=== PATIENT | male | born 1940 | race Caucasian/White ===

== ENCOUNTER 2016-05-12 11:56 | Observation (INO) ==
[2016-05-12] MEDS ORDERED: Pantoprazole 40 MG VIAL IVP ONE (12:18)
[2016-05-12 12:37] LABS: Basophils # 0.1 K/mcL (0.0-0.2); Basophils % 0.9 %; Eosinophils # 0.1 K/mcL (0.0-0.6); Eosinophils % 0.6 %; Hematocrit 34.7 % (37.5-50.1); Hemoglobin 11.6 g/dL (12.9-16.9); Immature Granulocytes % 0.5 % (0-4); Immature Platelets 2.9 % (1.1-6.1); Lymphocytes # 1.5 K/mcL (0.6-4.6); Lymphocytes % 14.6 %; Mean Corpuscular HGB Conc 33.4 g/dL (31.6-35.5); Mean Corpuscular Hemoglobin 30.6 pg (28.0-33.3); Mean Corpuscular Volume 91.6 fL (83.0-100.0); Mean Platelet Volume 9.2 fL (9.4-12.4); Monocytes # 0.7 K/mcL (0.0-1.3); Monocytes % 6.5 %; Neutrophils # 7.7 K/mcL (1.6-8.9); Platelet Count 292 K/mcL (140-400); Red Blood Count 3.79 M/mcL (4.19-5.50); Red Cell Distribution Width 12.8 % (11.5-14.5); Segmented Neutrophils % 76.9 %
[2016-05-12 12:42] LABS: Prothrombin Time 10.7 Seconds (9.4-12.1)
[2016-05-12 12:44] LABS: Activated Partial Thrombo Time 27.6 Seconds (26.0-36.0)
--- NOTE | 2016-05-12 12:49 | Emergency Department Note ---
Disposition Clinical Impression: GI bleed Qualifiers: GI bleed type/associated pathology: unspecified gastrointestinal hemorrhage type Qualified Code(s): K92.2 - Gastrointestinal hemorrhage, unspecified Disposition: Admitted As Inpatient Condition: Fair Referrals: Raymon Narayanan MD [Primary Care Provider] - Forms: ED Satisfaction Letter Time of Disposition: 13:27 GI Bleed HPI - General Chief complaint: ED GI Bleed Stated complaint: black stool Time Seen by Provider: 05/12/16 12:47 Source: patient Mode of arrival: ambulatory Limitations: no limitations Nursing Notes Reviewed: Yes Vital Signs Reviewed: Yes - History of Present Illness HPI Narrative: 75-year-old male who's had about a 2-3 day history of dark tarry stools. The patient has had a history of bleeding ulcer in the past. Denies significant abdominal pain. Generalized weakness Pt Subjective Complaint: other (Dark tarry stools) Onset (ago): day(s) (3) Severity: moderate Improves with: nothing Worsens with: nothing Context: history of GI bleed Associated symptoms: Reports: none Treatments Prior to Arrival: none - Related Data Allergies Allergy/AdvReac Type Severity Reaction Status Date / Time Penicillins AdvReac Rash Verified 10/18/14 08:24 All systems ED: reviewed and negative except as stated. Constitutional: Denies: fever, chills, weakness, weight change Eyes: Denies: eye pain, eye discharge, vision change ENT ED: Denies: ear pain, throat pain, dental pain, hearing loss, epistaxis, congestion, dysphagia Cardiovascular: Denies: chest pain, palpitations, dyspnea on exertion, edema, syncope Respiratory: Denies: cough, dyspnea, wheezes, hemoptysis, stridor Gastrointestinal: Reports: other (Dark tarry stools). Denies: abdominal pain, nausea, vomiting, diarrhea, constipation, hematemesis, melena, hematochezia Genitourinary: Denies: urgency, dysuria, frequency, hematuria Musculoskeletal: Denies: back pain, neck pain, arthralgia, myalgia Integumentary: Denies: rash, abrasion, lesions Neurological: Reports: weakness. Denies: headache, numbness, paresthesias, confusion, abnormal gait, vertigo Psychiatric: Denies: anxiety, depression, suicidal thoughts, homicidal thoughts , auditory hallucinations, visual hallucinations Endocrine: Denies: fatigue Hematological/Lymphatic: Denies: easy bleeding, easy bruising Allergic/Immunologic: Denies: facial swelling, urticaria Past Medical History - Past Medical History Medical history: Reports: diabetes, hypertension - Social History Smoking Status: Former smoker Smokeless Tobacco Status: No Alcohol use: Reports: none Drug use: Reports: none Physical Exam - General Limitations: no limitations General appearance: alert - Head Head exam: atraumatic, normocephalic, normal inspection - Eye Eye exam: Present: normal appearance, PERRL, EOMI - ENT ENT exam: normal exam, normal oropharynx, mucous membranes moist - Neck Neck exam: Present: normal inspection, full ROM, trachea midline - Chest Chest inspection: Present: normal inspection, symmetric chest wall rise - Respiratory Respiratory exam: Present: normal lung sounds bilaterally - Cardiovascular Cardiovascular exam: Present: regular rate, normal rhythm, normal heart sounds - Abdominal Exam Abdominal exam: Present: soft, tenderness. Absent: distention, guarding, rebound, rigidity Abdominal tenderness: Present: epigastrium, mild - Rectal Exam Rectal exam: Present: other (Was unable to get stool on rectal exam) - Extremities Exam Extremities exam: Present: normal inspection, full ROM. Absent: tenderness, pedal edema - Expanded Lower Extremity Exam Neurovascular/Tendon exam: Absent: motor deficit, sensory deficit, tendon deficit Gait: observed and normal - Back Exam Back exam: Present: normal inspection, full ROM. Absent: tenderness - Neurological Exam Neurological exam: Present: alert, oriented X3 - Psychiatric Psychiatric exam: Present: normal affect, normal mood - Skin Skin exam: Present: warm, dry, intact, normal color Course - Reevaluation(s) Reevaluation #1: 75-year-old with a history of upper GI bleed comes and stools. Workup here shows a 3.3 g hemoglobin drop since his last hemoglobin. Rectal exam was done but no good sample was obtained. Will admit. Time: 15:25 - Consultations Consultation #1: Discussed with Dr. Gil, admit. Time: 15:35 Vital Signs Temperature 97.8 F 05/12/16 11:57 Pulse Rate 93 05/12/16 11:57 Respiratory Rate 18 05/12/16 11:57 Blood Pressure 121/79 05/12/16 11:57 O2 Sat by Pulse Oximetry 95 05/12/16 11:57 Temperature 97.8 F 05/12/16 11:57 Pulse Rate 93 05/12/16 11:57 Respiratory Rate 18 05/12/16 11:57 Blood Pressure 121/79 05/12/16 11:57 O2 Sat by Pulse Oximetry 95 05/12/16 11:57 Oxygen Delivery Oxygen Delivery Room Air GI Bleed - Lab Data Lab results reviewed: Yes I reviewed the patient's lab results. Result diagrams: 05/12/16 12:28 05/12/16 12:28 Lab Results 05/12/16 05/12/16 05/12/16 Range/Units 12:28 12:28 12:28 WBC 10.0 (4.3-11.1) K/mcL RBC 3.79 L (4.19-5.50) M/mcL Hgb 11.6 L (12.9-16.9) g/dL Hct 34.7 L (37.5-50.1) % MCV 91.6 (83.0-100.0) fL MCH 30.6 (28.0-33.3) pg MCHC 33.4 (31.6-35.5) g/dL RDW 12.8 (11.5-14.5) % Plt Count 292 (140-400) K/mcL MPV 9.2 L (9.4-12.4) fL Immature Gran % 0.5 (0-4) % Seg Neutrophils % 76.9 % Lymphocytes % 14.6 % Monocytes % 6.5 % Eosinophils % 0.6 % Basophils % 0.9 % Neutrophils # 7.7 (1.6-8.9) K/mcL Lymphocytes # 1.5 (0.6-4.6) K/mcL Monocytes # 0.7 (0.0-1.3) K/mcL Eosinophils # 0.1 (0.0-0.6) K/mcL Basophils # 0.1 (0.0-0.2) K/mcL Immature Plt Fraction 2.9 (1.1-6.1) % PT 10.7 (9.4-12.1) Seconds INR 1.0 APTT 27.6 (26.0-36.0) Seconds Sodium 138 (136-145) mEq/L Potassium 3.8 (3.5-4.5) mEq/L Chloride 103 (98-109) mEq/L Carbon Dioxide 26 (19-29) mEq/L BUN 16 (8-26) mg/dL Creatinine 1.07 (0.72-1.25) mg/dL Est GFR ( Amer) > 60 (> 60) Est GFR (Non-Af Amer) > 60 (> 60) BUN/Creatinine Ratio 15 (6-26) Glucose 192 H (70-99) mg/dL Calculated Osmolality 292 (280-300) Calcium 9.4 (8.6-10.8) mg/dL Troponin I (0-0.03) ng/mL Lipase 35 (8-78) Units/L Stool Occult Blood (Negative) Blood Type Antibody Screen 05/12/16 05/12/16 05/12/16 Range/Units 12:28 12:28 12:48 WBC (4.3-11.1) K/mcL RBC (4.19-5.50) M/mcL Hgb (12.9-16.9) g/dL Hct (37.5-50.1) % MCV (83.0-100.0) fL MCH (28.0-33.3) pg MCHC (31.6-35.5) g/dL RDW (11.5-14.5) % Plt Count (140-400) K/mcL MPV (9.4-12.4) fL Immature Gran % (0-4) % Seg Neutrophils % % Lymphocytes % % Monocytes % % Eosinophils % % Basophils % % Neutrophils # (1.6-8.9) K/mcL Lymphocytes # (0.6-4.6) K/mcL Monocytes # (0.0-1.3) K/mcL Eosinophils # (0.0-0.6) K/mcL Basophils # (0.0-0.2) K/mcL Immature Plt Fraction (1.1-6.1) % PT (9.4-12.1) Seconds INR APTT (26.0-36.0) Seconds Sodium (136-145) mEq/L Potassium (3.5-4.5) mEq/L Chloride (98-109) mEq/L Carbon Dioxide (19-29) mEq/L BUN (8-26) mg/dL Creatinine (0.72-1.25) mg/dL Est GFR ( Amer) (> 60) Est GFR (Non-Af Amer) (> 60) BUN/Creatinine Ratio (6-26) Glucose (70-99) mg/dL Calculated Osmolality (280-300) Calcium (8.6-10.8) mg/dL Troponin I 0.01 (0-0.03) ng/mL Lipase (8-78) Units/L Stool Occult Blood Negative (Negative) Blood Type O POSITIVE Antibody Screen NEGATIVE - Radiology Data Radiology results reviewed: Yes I reviewed the patient's radiology results. Chest X-Ray 05/12/16 12:18 IMPRESSION: 1. No active pulmonary disease. 2. Stable cardiomegaly without overt failure. D/ / Marciano Morris MD / Marciano Morris MD Interpreting Provider: Marciano Morris MD Abdomen/Pelvis CT 05/12/16 12:47 IMPRESSION: Several foci of hazy circumscribed fat density are seen adjacent to the descending colon and proximal sigmoid colon, suggestive of epiploic appendagitis. Diverticulosis, without antonia diverticulitis. Prostatomegaly. Correlate with PSA. No evidence of obstructing renal calculus. Moderate hiatal hernia. No significant interval change in bilobed left lower lobe pulmonary nodule as compared to prior. D/ / Moe St MD / Moe St MD Interpreting Provider: Moe St MD - EKG Data EKG attestation: Yes I reviewed and interpreted this EKG. EKG shows normal: sinus rhythm Rate: normal Rhythm: NSR When compared to previous EKG there are: previous EKG unavailable Interpretation: nonspecific ST-T wave changes
[2016-05-12 12:51] LABS: BUN/Creatinine Ratio 15 (6-26); Blood Urea Nitrogen 16 mg/dL (8-26); Calcium 9.4 mg/dL (8.6-10.8); Carbon Dioxide 26 mEq/L (19-29); Chloride 103 mEq/L (98-109); Glucose 192 mg/dL (70-99); Lipase 35 Units/L (8-78); Osmolality,Calculated 292 (280-300); Potassium 3.8 mEq/L (3.5-4.5); Sodium 138 mEq/L (136-145); eGFR For African Americans > 60 (> 60); eGFR For Non-African Americans > 60 (> 60)
[2016-05-12] MEDS ORDERED: Ondansetron 4 MG/2 ML VIAL IVP PRN (16:34)
[2016-05-12] MEDS ORDERED: Naloxone 0.4 MG/ML INJ IVP PRN (16:34)
[2016-05-12] MEDS ORDERED: *HR* Morphine 2 MG/ML SYRINGE IVP PRN (16:34)
[2016-05-12] MEDS ORDERED: Albuterol 2.5 MG/3 ML NEBULIZER IH PRN (16:44)
[2016-05-12] MEDS ORDERED: *HR* Dextrose 50 % in Water (Syg) 50 ML SYRINGE IVP PRN (16:52)
[2016-05-12] MEDS ORDERED: Dextrose Gel 15 GM PO PRN ×2 (16:52)
[2016-05-12] MEDS ORDERED: D5% in Water 1,000 ML IVC PRN (16:52)
--- NOTE | 2016-05-12 16:59 | Internal Med History&Physical ---
<Jaye Duval M - Last Filed: 05/12/16 19:24> Date of Encounter: 05/12/16 Time of Encounter: 16:54 Assessment and Plan (1) GI bleed Current visit: Yes Status: Acute Patient reports nausea, poor appetite and black, sticky, tarry stools for the last 2-3 days. He has a history of bleeding ulcer 2-3 years ago. Hgb of 11.6 today is down from previous of 14.9 in 2014. Check H&H Q6hrs 40mg Protonix IVP BID NPO IV fluids 0.9NS at 100mL/hr Zofran PRN for nausea Stool sample for occult blood ordered GI/Dr. Welch consulted, will see patient tomorrow. Qualifiers: GI bleed type/associated pathology: melena Qualified Code(s): K92.1 - Melena (2) COPD (chronic obstructive pulmonary disease) Current visit: Yes Status: Acute Patient with COPD, denies any increased shortness of breath or coughing. Budesonide/formotorol BID duoneb treatments QID PRN albuterol nebulizer Qualifiers: COPD type: unspecified COPD Qualified Code(s): J44.9 - Chronic obstructive pulmonary disease, unspecified (3) Hypertension Current visit: Yes Status: Acute Patient is NPO for suspected upper GI bleed. Patient's blood pressure has been well controlled. Metoprolol and hydralazine ordered PRN for elevated blood pressure. Qualifiers: Hypertension type: essential hypertension Qualified Code(s): I10 - Essential (primary) hypertension (4) Type 2 diabetes mellitus Current visit: Yes Status: Acute Hold metformin check Hgb A1c Patient is NPO Check blood sugar Q6hr Sliding scale insulin Q6hr hypoglycemic protocol Qualifiers: Diabetes mellitus complication status: without complication Diabetes mellitus prison insulin use: without vocational examiner use Qualified Code(s): E11.9 - Type 2 diabetes mellitus without complications (5) DVT prophylaxis Current visit: Yes Status: Acute Ambulate with assistance sequential compression devices pharmacologic prophylaxis is contraindicated in suspected GI bleed. Internal Medicine - H&P: HPI Chief complaint: Nausea, tarry stools Admitted From: Emergency Dept Plans for Post Hospital Care: Home History of present illness: Mr. Lester is a 75 year old male with hypertension, hyperlipidemia, type 2 diabetes, COPD, history of bleeding ulcer, history of TIAs who presented to the emergency department today with complaints of nausea and diarrhea stools for the last 2-3 days. Patient reports he has felt nauseous and with a poor appetite for the last 2-3 days. At the same time he developed black, sticky, tarry stools with bowel movements. His last bowel movement was this morning and he describes it as tarry. He is fatigued, with some body aches, sweats, and subjective fever as well. He denies any chest pain, palpitations, abdominal pain, vomiting, numbness or tingling. He reports occasional lightheadedness. Evaluation in the emergency department included an EKG which showed normal sinus rhythm, chest x-ray which showed no active pulmonary disease and stable cardiomegaly, troponin was negative at 0.01. Hemoglobin was 11.6 down from a baseline of 14.9 and 2014. White blood cell count was normal at 10.0, patient was afebrile. Abdomen and pelvis CT showed several foci of hazy circumscribed fat density adjacent to the descending colon and proximal sigmoid colon, suggestive of epiploic appendagitis, diverticulosis without diverticulitis. On exam, patient is alert and oriented, in no acute distress. Lungs are clear bilaterally to auscultation, heart has regular rate and rhythm. Abdomen is soft, nontender, with positive bowel sounds. Past Med Surg Social Fam HX - Past Medical History Medical history: COPD, diabetes, GI bleed, hyperlipidemia, hypertension - Past Surgical History Surgical History: other (traumatic left toes (all 5) amputation) - Social History Smoking Status: Former smoker (70 Pack year history) Smokeless Tobacco Status: No Alcohol use: none Drug use: none - Family History Brother Living Status: Cause of : CVA Hx Family Cancer: Yes Hx Family Endocrine Disorder: Yes (DM) Father Living Status: Hx Family Cardiac Disorders: Yes Mother Hx Family Cardiac Disorders: No Hx Family Respiratory Disorders: No Hx Family Cancer: No Hx Family GI Disorders: No Hx Family Genitourinary Disorders: No Hx Family Endocrine Disorder: No Hx Family Musculoskeletal Disorders: No Hx Family Neuromuscular Disorders: No Hx Family Neurologic Disorders: No Hx Family HEENT Disorders: No Hx Family Autoimmune Disorders: No Hx Family Reproductive Disorders: No Hx Family Psychosocial Disorders: Yes (anxiety) Hx Family Medical Disorders: No Internal Medicine - H&P: Meds Albuterol Neb [Proventil Neb] 2.5 mg IH TID PRN 05/12/16 [History] Albuterol Sulfate [Albuterol Inhaler] 2 puff IH Q4H PRN 05/12/16 [History] Aspirin Enteric Coated [Aspirin EC] 81 mg PO DAILY 05/12/16 [History] Citalopram Hydrobromide [Celexa] 40 mg PO DAILY 05/12/16 [History] Fluticasone Furoate [Arnuity Ellipta] 100 mcg IH DAILY 05/12/16 [History] Lisinopril [Zestril] 5 mg PO DAILY 05/12/16 [History] Metformin HCl [Metformin HCl ER] 500 mg PO QPM 05/12/16 [History] Multivitamin [Multi-Day Vitamins] 1 each PO DAILY 05/12/16 [History] Simvastatin [Zocor] 20 mg PO HS 05/12/16 [History] Umeclidinium Brm/Vilanterol Tr [Anoro Ellipta 62.5-25 Mcg INH] 1 each IH DAILY 05/12/16 [History] Allergies Penicillins Adverse Reaction (Verified 10/18/14 08:24) Rash All Systems PM: A 10-system review of systems was performed and is negative for pertinent findings except as documented above in the HPI. - Constitutional Constitutional: anorexia, fatigue, fever(s), night sweats, no chills - EENT Eyes: no change in vision, no discharge, no pain, no photophobia Ears: no ear discharge, no ear pain, no tinnitus Nose, mouth and throat: no dysphagia, no nasal discharge, no neck pain, no sore throat - Cardiovascular Cardiovascular ROS IM: lightheadedness, no chest pain, no diaphoresis, no dyspnea, no palpitations, no syncope - Respiratory Respiratory: no cough, no dyspnea, no wheezing, no excessive phlegm production - Gastrointestinal Gastrointestinal: melena, nausea, no abdominal pain, no diarrhea, no hematemesis , no hematochezia, no vomiting - Musculoskeletal Musculoskeletal ROS IM: no numbness, no tingling - Integumentary Integumentary IM: no rash, no unusual bruising - Neurological Neurological ROS: no confusion, no convulsions, no focal weakness, no numbness, no tingling, no tremor(s) - Hematologic/Lymphatic Hematologic/Lymphatic: no easy bruising - Constitutional Vitals: Temp Pulse Resp BP Pulse Ox 97.8 F 79 18 114/71 98 05/12/16 11:57 05/12/16 16:18 05/12/16 16:18 05/12/16 16:18 05/12/16 16:18 General appearance: Present: A&O X 3, pleasant, no acute distress - Head Head exam: Present: atraumatic, normocephalic - Eye Eye exam: Present: PERRL, conjuntiva pink, sclera anicteric Pupils: Present: PERRL - Neck Neck exam general surgery: Present: supple, trachea midline. Absent: lymphadenopathy - Respiratory Respiratory exam: Present: CTAB. Absent: accessory muscle use, rales, rhonchi, wheezes - Cardiovascular Cardiovascular exam: Present: RRR, +S1, +S2. Absent: diastolic murmur, gallop, rubs, systolic murmur - GI/Abdominal GI/Abdominal exam: Present: normal bowel sounds, soft, no peritoneal signs. Absent: distended, tenderness - Extremities Exam Extremities exam: Present: warm, radial pulses palpable and symetrical. Absent : calf tenderness, cyanotic, pedal edema - Neurological Exam Neurological exam: Present: CN II-XII intact, oriented X3, no focal deficits. Absent: facial droop, speech deficit - Skin Skin exam: Present: dry, intact Internal Med - H&P Results - Labs CBC & Chem 7: 05/12/16 18:56 05/12/16 12:28 Labs: All Lab Results (24 Hours) 05/12/16 05/12/16 05/12/16 Range/Units 12:28 12:28 12:28 WBC 10.0 (4.3-11.1) K/mcL RBC 3.79 L (4.19-5.50) M/mcL Hgb 11.6 L (12.9-16.9) g/dL Hct 34.7 L (37.5-50.1) % MCV 91.6 (83.0-100.0) fL MCH 30.6 (28.0-33.3) pg MCHC 33.4 (31.6-35.5) g/dL RDW 12.8 (11.5-14.5) % Plt Count 292 (140-400) K/mcL MPV 9.2 L (9.4-12.4) fL Immature Gran % 0.5 (0-4) % Seg Neutrophils % 76.9 % Lymphocytes % 14.6 % Monocytes % 6.5 % Eosinophils % 0.6 % Basophils % 0.9 % Neutrophils # 7.7 (1.6-8.9) K/mcL Lymphocytes # 1.5 (0.6-4.6) K/mcL Monocytes # 0.7 (0.0-1.3) K/mcL Eosinophils # 0.1 (0.0-0.6) K/mcL Basophils # 0.1 (0.0-0.2) K/mcL Immature Plt Fraction 2.9 (1.1-6.1) % PT 10.7 (9.4-12.1) Seconds INR 1.0 APTT 27.6 (26.0-36.0) Seconds Sodium 138 (136-145) mEq/L Potassium 3.8 (3.5-4.5) mEq/L Chloride 103 (98-109) mEq/L Carbon Dioxide 26 (19-29) mEq/L BUN 16 (8-26) mg/dL Creatinine 1.07 (0.72-1.25) mg/dL Est GFR ( Amer) > 60 (> 60) Est GFR (Non-Af Amer) > 60 (> 60) BUN/Creatinine Ratio 15 (6-26) Glucose 192 H (70-99) mg/dL Calculated Osmolality 292 (280-300) Calcium 9.4 (8.6-10.8) mg/dL Troponin I (0-0.03) ng/mL Lipase 35 (8-78) Units/L Stool Occult Blood (Negative) Blood Type Antibody Screen 05/12/16 05/12/16 05/12/16 Range/Units 12:28 12:28 12:48 WBC (4.3-11.1) K/mcL RBC (4.19-5.50) M/mcL Hgb (12.9-16.9) g/dL Hct (37.5-50.1) % MCV (83.0-100.0) fL MCH (28.0-33.3) pg MCHC (31.6-35.5) g/dL RDW (11.5-14.5) % Plt Count (140-400) K/mcL MPV (9.4-12.4) fL Immature Gran % (0-4) % Seg Neutrophils % % Lymphocytes % % Monocytes % % Eosinophils % % Basophils % % Neutrophils # (1.6-8.9) K/mcL Lymphocytes # (0.6-4.6) K/mcL Monocytes # (0.0-1.3) K/mcL Eosinophils # (0.0-0.6) K/mcL Basophils # (0.0-0.2) K/mcL Immature Plt Fraction (1.1-6.1) % PT (9.4-12.1) Seconds INR APTT (26.0-36.0) Seconds Sodium (136-145) mEq/L Potassium (3.5-4.5) mEq/L Chloride (98-109) mEq/L Carbon Dioxide (19-29) mEq/L BUN (8-26) mg/dL Creatinine (0.72-1.25) mg/dL Est GFR ( Amer) (> 60) Est GFR (Non-Af Amer) (> 60) BUN/Creatinine Ratio (6-26) Glucose (70-99) mg/dL Calculated Osmolality (280-300) Calcium (8.6-10.8) mg/dL Troponin I 0.01 (0-0.03) ng/mL Lipase (8-78) Units/L Stool Occult Blood Negative (Negative) Blood Type O POSITIVE Antibody Screen NEGATIVE - Impressions ITS Impressions Chest X-Ray 05/12/16 12:18 IMPRESSION: 1. No active pulmonary disease. 2. Stable cardiomegaly without overt failure. D/ / Marciano Morris MD / Marciano Morris MD Interpreting Provider: Marciano Morris MD Abdomen/Pelvis CT 05/12/16 12:47 IMPRESSION: Several foci of hazy circumscribed fat density are seen adjacent to the descending colon and proximal sigmoid colon, suggestive of epiploic appendagitis. Diverticulosis, without antonia diverticulitis. Prostatomegaly. Correlate with PSA. No evidence of obstructing renal calculus. Moderate hiatal hernia. No significant interval change in bilobed left lower lobe pulmonary nodule as compared to prior. D/ / Moe St MD / Moe St MD Interpreting Provider: Moe St MD - Diagnostic Studies CT scan - abdomen Additional comments: Abdomen/Pelvis CT 05/12/16 12:47 IMPRESSION: Several foci of hazy circumscribed fat density are seen adjacent to the descending colon and proximal sigmoid colon, suggestive of epiploic appendagitis. Diverticulosis, without antonia diverticulitis. Prostatomegaly. Correlate with PSA. No evidence of obstructing renal calculus. Moderate hiatal hernia. No significant interval change in bilobed left lower lobe pulmonary nodule as compared to prior. D/ / Moe St MD / Moe St MD Interpreting Provider: Moe St MD Chest x-ray Additional comments: Chest X-Ray 05/12/16 12:18 IMPRESSION: 1. No active pulmonary disease. 2. Stable cardiomegaly without overt failure. D/ / Marciano Morris MD / Marciano Morris MD Interpreting Provider: Marciano Morris MD <Dallas Montanez - Last Filed: 05/12/16 23:26> Date of Encounter: 05/12/16 - Constitutional Vitals: Temp Pulse Resp BP Pulse Ox 98.2 F 77 16 129/79 95 05/12/16 18:09 05/12/16 18:09 05/12/16 18:09 05/12/16 18:09 05/12/16 18:09 General appearance: Present: cooperative, A&O X 3, pleasant, no acute distress - ENT ENT exam: Present: mucous membranes dry, normal exam - Respiratory Respiratory exam: Present: CTAB. Absent: rales, rhonchi, wheezes - Cardiovascular Cardiovascular exam: Present: RRR, +S1, +S2. Absent: systolic murmur - GI/Abdominal GI/Abdominal exam: Present: normal bowel sounds, soft. Absent: hepatomegaly, mass, splenomegaly, tenderness - Skin Skin exam: Present: dry, warm. Absent: rash Internal Med - H&P Results - Labs CBC & Chem 7: 05/12/16 18:56 05/12/16 12:28 Labs: Short CBC 05/12/16 Range/Units 18:56 Hgb 10.7 L (12.9-16.9) g/dL Hct 32.5 L (37.5-50.1) % - Attending Attestation I discussed the patient NOME, PMH, ROS, lab data, and exam findings with Jaye Duval CNP. I then saw and examined patient independently as well. Patient denies any GI symptoms presently, but he does confirm melena and GI upset the last few days. He denies any NSAID abuse or any alcohol use. Vitals are stable presently. I asked RN to place him on telemetry. His exam is benign as detailed above. He is on appropriate medications, and I agree with the GI consult and lab monitoring. Other than my comments above and noted exam findings, I agree with Jaye's assessment and plan.
[2016-05-12] MEDS ORDERED: *HR* Metoprolol 5 MG/5 ML VIAL IVP PRN (17:14)
[2016-05-12] MEDS: 0.9 % Sodium Chloride 1,000 ML IVC SCH (18:41)
[2016-05-12] MEDS: Pantoprazole 40 MG VIAL IVP SCH (18:41)
[2016-05-12 19:09] LABS: Hematocrit 32.5 % (37.5-50.1); Hemoglobin 10.7 g/dL (12.9-16.9)
[2016-05-12 19:20] LABS: Hemoglobin A1C 5.7 %
[2016-05-12] MEDS: Ipratropium/Albuterol Neb 3 ML IH SCH ×2 (19:31→22:09)
[2016-05-12] MEDS: Insulin LISPRO 300 UNITS/3 ML VIAL SQ SCH ×2 (20:14→23:44)
[2016-05-12] MEDS: Budesonide/Formoterol 160/4.5 MDI IH SCH (22:09)
[2016-05-12] MEDS: Sucralfate 1 GM TABLET PO SCH (23:34)
[2016-05-13 00:22] LABS: Hematocrit 30.4 % (37.5-50.1)
[2016-05-13] MEDS: Ipratropium/Albuterol Neb 3 ML IH SCH ×4 (04:10→22:08)
[2016-05-13 05:50] LABS: Basophils # 0.1 K/mcL (0.0-0.2); Basophils % 0.9 %; Eosinophils # 0.2 K/mcL (0.0-0.6); Hematocrit 30.3 % (37.5-50.1); Hematocrit 30.8 % (37.5-50.1); Hemoglobin 10.1 g/dL (12.9-16.9); Hemoglobin 9.9 g/dL (12.9-16.9); Immature Granulocytes % 0.3 % (0-4); Lymphocytes # 1.7 K/mcL (0.6-4.6); Lymphocytes % 22.7 %; Mean Corpuscular HGB Conc 33.3 g/dL (31.6-35.5); Mean Corpuscular Hemoglobin 30.3 pg (28.0-33.3); Mean Platelet Volume 9.7 fL (9.4-12.4); Monocytes # 0.6 K/mcL (0.0-1.3); Platelet Count 236 K/mcL (140-400); Red Blood Count 3.33 M/mcL (4.19-5.50); Red Cell Distribution Width 12.6 % (11.5-14.5); Segmented Neutrophils % 66.1 %
[2016-05-13 05:56] LABS: BUN/Creatinine Ratio 15 (6-26); Blood Urea Nitrogen 14 mg/dL (8-26); Calcium 8.9 mg/dL (8.6-10.8); Carbon Dioxide 26 mEq/L (19-29); Chloride 107 mEq/L (98-109); Glucose 126 mg/dL (70-99); Osmolality,Calculated 292 (280-300); Potassium 3.8 mEq/L (3.5-4.5); Sodium 140 mEq/L (136-145); eGFR For African Americans > 60 (> 60); eGFR For Non-African Americans > 60 (> 60)
[2016-05-13] MEDS: Insulin LISPRO 300 UNITS/3 ML VIAL SQ SCH ×4 (05:58→23:44)
[2016-05-13] MEDS: 0.9 % Sodium Chloride 1,000 ML IVC SCH ×3 (05:59→23:51)
[2016-05-13] MEDS: Pantoprazole 40 MG VIAL IVP SCH ×2 (05:59→18:13)
[2016-05-13] MEDS: Budesonide/Formoterol 160/4.5 MDI IH SCH ×2 (10:20→22:07)
--- NOTE | 2016-05-13 10:34 | Gastroenterology Consult Note ---
<Demario Juarez - Last Filed: 05/13/16 10:31> Date of Encounter: 05/13/16 Time of Encounter: 10:00 - Assessment and plan (1) Melena Current Visit: Yes Status: Acute Assessment and plan: Pt with black tarry stool for 2-3 day prior to admission. FOBT negative. EGD today to r/o esophagitis, gastritis, duodenitis, PUD, MW tear, or AVM. Keep NPO. Continue PPI. (2) Anemia Current Visit: Yes Status: Acute Assessment and plan: Hgb 14.9 on 01/14/2014. On admission Hgb 11.6 and 9.9 this AM. Check iron profile and ferritin. Continue to monitor CBC and transfuse PRBC as needed. Plan for EGD today. Keep NPO. Qualifiers: Anemia type: unspecified type Qualified Code(s): D64.9 - Anemia, unspecified (3) COPD (chronic obstructive pulmonary disease) Current Visit: Yes Status: Acute Qualifiers: COPD type: unspecified COPD Qualified Code(s): J44.9 - Chronic obstructive pulmonary disease, unspecified - Time Spent With Patient Total time spent is greater than 50% in coordination of care (as documented) at patient's floor/unit and/or counseling patient: GI History of Present Illness - Data of Consult Patient: new to practice Consult date: 05/13/16 Requesting Physician: Fransisca Krueger MD - Consult Narrative Reason for consult: melena, anemia History of present illness: Mr. Lester is a 75 year old male with PMHx of COPD, DM, GI bleed, HLD, HTN who presented to the ED with c/o nausea and melena for 2-3 days. He reports decreased appetite, fatigue, and subjective fever. He denies chest pain, palpitations, abdominal pain, vomiting, hematemesis, hematochezia. His Hgb was 14.9 on 01/14/[address] A/P with several foci of hazy circumscribed fat density seen adjacent to the descending colon and proximal sigmoid colon suggestive of epiploic appendagitis, diverticulosis. Procedures: EGD 06/28/2012 Dr. Welch: Hiatus hernia with Reece erosions. Colonoscopy 08/09/2011 Dr. Morris: 2 hyperplastic polyps in sigmoid colon, tubular adenoma in the cecum, diverticulosis, and internal hemorrhoids. EGD 08/09/2011 Dr. Morris: LA Grade C reflux esophagitis, acute gastritis and duodenitis, multiple duodenal ulcers with clean base, multiple duodenal polyps. NSAIDs: ASA Anticoagulation: None Past Med Surg Social Fam HX - Past Medical History Medical history: COPD, diabetes, GI bleed, hyperlipidemia, hypertension - Past Surgical History Surgical History: other (traumatic left toes (all 5) amputation) - Social History Smoking Status: Former smoker (70 Pack year history) Smokeless Tobacco Status: No Alcohol use: none Drug use: none - Family History Brother Living Status: Cause of : CVA Hx Family Cancer: Yes Hx Family Endocrine Disorder: Yes (DM) Father Living Status: Hx Family Cardiac Disorders: Yes Hx Family Respiratory Disorders: Yes (Asthma) Hx Family Cancer: No Hx Family GI Disorders: No Hx Family Genitourinary Disorders: No Hx Family Endocrine Disorder: No Hx Family Musculoskeletal Disorders: No Hx Family Neuromuscular Disorders: No Hx Family Neurologic Disorders: No Hx Family HEENT Disorders: No Hx Family Autoimmune Disorders: No Hx Family Reproductive Disorders: No Hx Family Psychosocial Disorders: No Hx Family Medical Disorders: No Mother Hx Family Cardiac Disorders: No Hx Family Respiratory Disorders: No Hx Family Cancer: No Hx Family GI Disorders: No Hx Family Genitourinary Disorders: No Hx Family Endocrine Disorder: No Hx Family Musculoskeletal Disorders: No Hx Family Neuromuscular Disorders: No Hx Family Neurologic Disorders: No Hx Family HEENT Disorders: No Hx Family Autoimmune Disorders: No Hx Family Reproductive Disorders: No Hx Family Psychosocial Disorders: Yes (anxiety) Hx Family Medical Disorders: No - Gastrointestinal Gastrointestinal: Present: as per HPI - Constitutional Constitutional: as per HPI - EENT Eyes: as per HPI Ears: Present: as per HPI Nose, mouth and throat: Present: as per HPI - Cardiovascular Cardiovascular ROS: Present: as per HPI - Respiratory Respiratory IM: Present: as per HPI - Genitourinary Genitourinary: Absent: change in color, Urinary frequency - Neurological ROS Neurological GI: Present: as per HPI - Hematologic/Lymphatic Hematologic/Lymphatic pediatric: Present: as per HPI - Musculoskeletal Musculoskeletal ROS GI: Present: as per HPI - Integumentary Integumentary GI: Present: as per HPI - Psychiatric ROS Psychiatric GI: Present: as per HPI - Endocrine Endocrine IM: Present: as per HPI - Constitutional Vitals: Temp Pulse Resp BP Pulse Ox 98.1 F 96 16 141/84 95 05/13/16 07:39 05/13/16 07:39 05/13/16 10:20 05/13/16 07:39 05/13/16 10:20 General appearance: Present: cooperative, A&O X 3, no acute distress, answers questions appropriately - Head Head exam: Present: atraumatic, normocephalic - Eye Eye exam: Present: normal appearance, sclera anicteric - ENT ENT exam: Present: mucous membranes dry - Neck Neck exam general surgery: Present: normal inspection, trachea midline - Respiratory Respiratory exam: Present: CTAB. Absent: rales, rhonchi, wheezes - Cardiovascular Cardiovascular exam: Present: RRR, +S1, +S2 - GI/Abdominal GI/Abdominal exam: Present: soft, no peritoneal signs. Absent: distended, firm , guarding, tenderness - Rectal Rectal exam: Present: deferred - Extremities Exam Extremities exam: Present: warm - Neurological Exam Neurological exam: Present: no focal deficits - Psychiatric Psychiatric exam: Present: normal affect, normal mood - Skin Skin exam: Present: dry, intact, normal color, warm Results - Labs CBC & Chem 7: 05/13/16 05:25 05/13/16 05:25 Labs: Last Result Calcium 8.9 mg/dL (8.6-10.8) 05/13/16 05:25 Troponin I 0.01 ng/mL (0-0.03) 05/12/16 12:28 Stool Occult Blood Negative (Negative) 05/12/16 12:48 Entire Visit Hgb 10.1 g/dL (12.9-16.9) L 05/13/16 05:25 Hct 30.3 % (37.5-50.1) L 05/13/16 05:25 PT 10.7 Seconds (9.4-12.1) 05/12/16 12:28 Lipase 35 Units/L (8-78) 05/12/16 12:28 - ABG ABG results: PT/INR, D-dimer PT 10.7 Seconds (9.4-12.1) 05/12/16 12:28 Consult Discharge Plan - Plan Referrals: Raymon Narayanan MD [Primary Care Provider] - <Cece Welch - Last Filed: 05/13/16 20:20> Date of Encounter: 05/13/16 Time of Encounter: 17:00 - Time Spent With Patient Total time spent is greater than 50% in coordination of care (as documented) at patient's floor/unit and/or counseling patient: GI History of Present Illness - Data of Consult Requesting Physician: Fransisca Krueger MD - Consult Narrative History of present illness: Mr. Lester is a 75 year old male - Constitutional Vitals: Temp Pulse Resp BP Pulse Ox 98.9 F 109 16 143/75 95 05/13/16 19:38 05/13/16 19:38 05/13/16 19:38 05/13/16 19:38 05/13/16 19:38 Results - Labs CBC & Chem 7: 05/13/16 05:25 05/13/16 05:25 Labs: Last Result Calcium 8.9 mg/dL (8.6-10.8) 05/13/16 05:25 Iron 67 mcg/dL (65-175) 05/13/16 05:25 % Saturation 17 % (20-55) L 05/13/16 05:25 Transferrin 278 mg/dL (174-364) 05/13/16 05:25 Ferritin 16 ng/ml (22-275) L 05/13/16 05:25 Troponin I 0.01 ng/mL (0-0.03) 05/12/16 12:28 Stool Occult Blood Negative (Negative) 05/12/16 12:48 Entire Visit Hgb 10.1 g/dL (12.9-16.9) L 05/13/16 05:25 Hct 30.3 % (37.5-50.1) L 05/13/16 05:25 PT 10.7 Seconds (9.4-12.1) 05/12/16 12:28 Ferritin 16 ng/ml (22-275) L 05/13/16 05:25 Lipase 35 Units/L (8-78) 05/12/16 12:28 - ABG ABG results: PT/INR, D-dimer PT 10.7 Seconds (9.4-12.1) 05/12/16 12:28 - Attending Attestation I examined this patient and my medical decision-making was reviewed with the CARPET WEAVER/PA/Advanced Practice Nurse/Resident Physician. I agree with the documented findings, disposition and treatment plan as described except to the extent set forth below.
[2016-05-13 10:59] LABS: % Iron Saturation 17 % (20-55); Iron 67 mcg/dL (65-175); Transferrin 278 mg/dL (174-364)
[2016-05-13 11:18] LABS: Ferritin 16 ng/ml (22-275)
--- NOTE | 2016-05-13 15:44 | Electrocardiograph Report ---
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
[2016-05-13] MEDS: Sucralfate 1 GM TABLET PO SCH ×2 (16:46→20:47)
[2016-05-14 03:22] LABS: Basophils # 0.1 K/mcL (0.0-0.2); Eosinophils # 0.1 K/mcL (0.0-0.6); Eosinophils % 1.9 %; Hematocrit 29.1 % (37.5-50.1); Hemoglobin 9.8 g/dL (12.9-16.9); Immature Granulocytes % 0.4 % (0-4); Lymphocytes # 1.6 K/mcL (0.6-4.6); Lymphocytes % 22.4 %; Mean Corpuscular HGB Conc 33.7 g/dL (31.6-35.5); Mean Corpuscular Hemoglobin 30.5 pg (28.0-33.3); Mean Corpuscular Volume 90.7 fL (83.0-100.0); Mean Platelet Volume 9.5 fL (9.4-12.4); Monocytes # 0.7 K/mcL (0.0-1.3); Monocytes % 9.5 %; Neutrophils # 4.7 K/mcL (1.6-8.9); Platelet Count 246 K/mcL (140-400); Red Blood Count 3.21 M/mcL (4.19-5.50); Red Cell Distribution Width 12.6 % (11.5-14.5); Segmented Neutrophils % 64.8 %
[2016-05-14] MEDS: Ipratropium/Albuterol Neb 3 ML IH SCH ×3 (04:40→15:50)
[2016-05-14] MEDS: Pantoprazole 40 MG VIAL IVP SCH (05:38)
[2016-05-14] MEDS: Insulin LISPRO 300 UNITS/3 ML VIAL SQ SCH ×2 (05:51→12:55)
[2016-05-14] MEDS ORDERED: *HR* Midazolam HCl 5 MG/5 ML VIAL IVP ONE (07:10)
[2016-05-14] MEDS ORDERED: *HR* FentaNYL (PF) 100 MCG/2 ML VIAL ONE (07:11)
[2016-05-14] MEDS ORDERED: 0.9 % Sodium Chloride 1,000 ML IVC SCH (07:30)
[2016-05-14] MEDS ORDERED: Simethicone 40 MG/0.6 ML MLS IR ONE (07:34)
[2016-05-14] MEDS ORDERED: *HR* FentaNYL (PF) 100 MCG/2 ML VIAL IVP PRN (07:34)
[2016-05-14] MEDS ORDERED: Tetracaine/Benzocaine/Butamben 200MG/SPRAY (100SPY/BOT) MM ONE (07:34)
[2016-05-14] MEDS ORDERED: *HR* Midazolam HCl 5 MG/5 ML VIAL IVP PRN (07:34)
--- NOTE | 2016-05-14 07:34 | Pre-Sedation Evaluation ---
Pre-sedation evaluation - Pre-sedation checklist Date of procedure: 05/14/16 Procedure: egd Recent Vitals: Last Vital Signs Temp 97.6 F 05/14/16 07:12 Pulse 95 05/14/16 07:32 Resp 16 05/14/16 07:32 BP 123/86 05/14/16 07:32 Pulse Ox 98 05/14/16 07:32 H&P (including ROS) documented in medical record: Yes Previous reaction to sedatives/anesthetics: No Dietary Status: NPO after Midnight ASA Classification *see protocol: CLASS III-Severe systemic disease Plan of Care: Pt appropriate candidate for procedure/moderate/conscious sedation , Risks/benefits of procedure/sedation discussed w/ patient/family
[2016-05-14] MEDS: Sucralfate 1 GM TABLET PO SCH ×2 (07:44→13:05)
[2016-05-14] MEDS: Budesonide/Formoterol 160/4.5 MDI IH SCH (10:48)
[2016-05-14 14:42] VITALS: BP 176/85
--- NOTE | 2016-05-14 17:04 | Discharge Summary ---
Date of Encounter: 05/14/16 Time of Encounter: 16:59 - Discharge Diagnosis (1) Melena Priority: Primary Status: Acute (2) Anemia Priority: Primary Status: Acute Qualifiers: Anemia type: other cause Other causes of anemia: acute posthemorrhagic Qualified Code(s): D62 - Acute posthemorrhagic anemia (3) GI bleed Priority: Primary Status: Acute Qualifiers: GI bleed type/associated pathology: melena Qualified Code(s): K92.1 - Melena (4) COPD (chronic obstructive pulmonary disease) Priority: Secondary Status: Chronic Qualifiers: COPD type: unspecified COPD Qualified Code(s): J44.9 - Chronic obstructive pulmonary disease, unspecified (5) Hypertension Priority: Secondary Status: Chronic Qualifiers: Hypertension type: essential hypertension Qualified Code(s): I10 - Essential (primary) hypertension (6) Type 2 diabetes mellitus Priority: Secondary Status: Chronic Qualifiers: Diabetes mellitus complication status: without complication Diabetes mellitus intermediate insulin use: without intermediate use Qualified Code(s): E11.9 - Type 2 diabetes mellitus without complications - Discharge Medications Prescriptions: Omeprazole [PriLOSEC] 40 mg PO DAILY #30 cap Sucralfate [Carafate] 1 gm PO QIDAC #90 tablet Home Medications: Albuterol Neb [Proventil Neb] 2.5 mg IH TID PRN 05/12/16 [History] Albuterol Sulfate [Albuterol Inhaler] 2 puff IH Q4H PRN 05/12/16 [History] Aspirin Enteric Coated [Aspirin EC] 81 mg PO DAILY 05/12/16 [History] Citalopram Hydrobromide [Celexa] 40 mg PO DAILY 05/12/16 [History] Fluticasone Furoate [Arnuity Ellipta] 100 mcg IH DAILY 05/12/16 [History] Lisinopril [Zestril] 5 mg PO DAILY 05/12/16 [History] Metformin HCl [Metformin HCl ER] 500 mg PO QPM 05/12/16 [History] Multivitamin [Multi-Day Vitamins] 1 each PO DAILY 05/12/16 [History] Simvastatin [Zocor] 20 mg PO HS 05/12/16 [History] Umeclidinium Brm/Vilanterol Tr [Anoro Ellipta 62.5-25 Mcg INH] 1 each IH DAILY 05/12/16 [History] Omeprazole [PriLOSEC] 40 mg PO DAILY #30 cap 05/14/16 [Rx] Sucralfate [Carafate] 1 gm PO QIDAC #90 tablet 05/14/16 [Rx] Allergies/Adverse Reactions: Allergies Penicillins Adverse Reaction (Verified 10/18/14 08:24) Rash Date of admission: 05/12/16 16:50 Primary care physician: Raymon Narayanan MD Consults: 05/12/16 18:01 Consult to Transactional Attorney [CONS] Routine Reason for SW Consult: patient may need PT/OT. Not janie at this time. Also does not have Advanced directives in place. Discharging clinician: Farnsisca Krueger Anticipated date of discharge: 05/14/16 - Patient Status Disposition: Home, Self-Care Condition: Good Functional capacity at discharge: independent ambulation Overall status at discharge: patient is progressing back to baseline - Discharge Instructions Instructions: Sucralfate (By mouth), Omeprazole (By mouth), Hiatal Hernia (DC) Follow Up With: Raymon Narayanan MD [Primary Care Provider] - 05/25/16 9:45 am - Diet and Activity Activity: resume usual activities as tolerated Diet: diabetic diet, low fat, low cholesterol, low salt diet Hospital course: Mr. Lester is a 75 year old male with the above medical problems, admitted with melena. His Hb was monitored frequently, he was kept NPO with iV hydration , GI has been consulted and patient underwent EGD. Hb stayed stable, did not require PRBC transfusion. EGD showed no e/o- active bleeding but did show gastritis and mucosal edema. He was restarted on PPI twice daily, which he stopped a few weeks ago per his , and he is also recommended Carafate per GI. He was explained to avoid NSAIDs and steroids and his baby ASA will be continued for now due to no active bleeding and needing this for CAD. Patient is otherwise medically stable for discharge. - Time Spent with Patient Total time spent providing and/or coordinating discharge services: Greater than 30 minutes (45 min) - Constitutional Vitals: Temp Pulse Resp BP Pulse Ox 98.0 F 121 17 176/85 95 05/14/16 14:39 05/14/16 14:39 05/14/16 15:51 05/14/16 14:39 05/14/16 15:51 General appearance: Present: cooperative, A&O X 3, answers questions appropriately - Respiratory Respiratory exam: Present: CTAB. Absent: accessory muscle use, rales, rhonchi, wheezes - Cardiovascular Cardiovascular exam: Present: RRR, +S1, +S2. Absent: diastolic murmur, gallop, rubs, systolic murmur - VTE Documentation of Mechanical Device: Graduated compression elastic hosiery
--- NOTE | 2016-05-16 17:42 | Internal Med Progress Note ---
Date of Encounter: 05/13/16 Time of Encounter: 15:00 - Assessment and plan (1) Melena Status: Acute Assessment and plan: Patient presents with melena, GI has been consulted and scheduled for EGD today. Will follow up report. Will continue to monitor hemoglobin and transfuse as needed. (2) Anemia Status: Acute Assessment and plan: Plan as above. Qualifiers: Anemia type: other cause Other causes of anemia: acute posthemorrhagic Qualified Code(s): D62 - Acute posthemorrhagic anemia (3) GI bleed Status: Acute Qualifiers: GI bleed type/associated pathology: melena Qualified Code(s): K92.1 - Melena (4) COPD (chronic obstructive pulmonary disease) Status: Chronic Assessment and plan: Not noted to be in acute exacerbation. Continue when necessary bronchodilators and supplemental oxygen. Qualifiers: COPD type: unspecified COPD Qualified Code(s): J44.9 - Chronic obstructive pulmonary disease, unspecified (5) Hypertension Status: Chronic Assessment and plan: Blood pressure noted to be well controlled. Continue home medications. Qualifiers: Hypertension type: essential hypertension Qualified Code(s): I10 - Essential (primary) hypertension (6) Type 2 diabetes mellitus Status: Chronic Assessment and plan: Continue Accu-Chek glucose monitoring with sliding scale insulin. Blood sugars are noted to be well controlled. Qualifiers: Diabetes mellitus complication status: without complication Diabetes mellitus supervisor intermediates insulin use: without supervisor intermediates use Qualified Code(s): E11.9 - Type 2 diabetes mellitus without complications - Subjective Interval history: No abdominal pain, vomiting or diarrhea. Awaiting EGD today. - Constitutional Vitals: Temp Pulse Resp BP Pulse Ox 98.0 F 121 17 176/85 95 05/14/16 14:39 05/14/16 14:39 05/14/16 15:51 05/14/16 14:39 05/14/16 15:51 General appearance: Present: cooperative, A&O X 3, answers questions appropriately - Respiratory Respiratory exam: Present: CTAB. Absent: accessory muscle use, rales, rhonchi, wheezes - Cardiovascular Cardiovascular exam: Present: RRR, +S1, +S2. Absent: diastolic murmur, gallop, rubs, systolic murmur - GI/Abdominal GI/Abdominal exam: Present: normal bowel sounds, soft, no peritoneal signs. Absent: distended, tenderness Internal Medicine: Result - Labs CBC & Chem 7: 05/14/16 03:00 05/13/16 05:25 - ABG Interpretation ABG results: PT/INR, D-dimer PT 10.7 Seconds (9.4-12.1) 05/12/16 12:28 - VTE Documentation of Mechanical Device: Graduated compression elastic hosiery Consult Discharge Plan - Plan Instructions: Sucralfate (By mouth), Omeprazole (By mouth), Hiatal Hernia (DC) Referrals: Raymon Narayanan MD [Primary Care Provider] - 05/25/16 9:45 am Prescriptions: Omeprazole [PriLOSEC] 40 mg PO DAILY #30 cap Sucralfate [Carafate] 1 gm PO QIDAC #90 tablet
== END 2016-05-14 17:58 | disposition home or self-care (01) ==
LOC: 3BNU 11:56 → EMEROO 11:56 → SUATTDRO 16:50 → 3BNU 17:31
PROVIDERS: ADMIT Internal Medicine; ATTEND Internal Medicine
PROC: ENDOEBX (2016-05-14 07:30)

== ENCOUNTER 2016-09-17 11:26 | Inpatient (IN) ==
--- NOTE | 2016-09-17 11:49 | Emergency Department Note ---
Disposition Clinical Impression: Syncope Qualifiers: Syncope type: unspecified Qualified Code(s): R55 - Syncope and collapse Anemia Qualifiers: Anemia type: unspecified type Qualified Code(s): D64.9 - Anemia, unspecified Disposition: Admitted As Inpatient Condition: Fair Time of Disposition: 13:37 Syncope HPI - General Chief Complaint: ED Syncope Stated Complaint: Syncope Time Seen by Provider: 09/17/16 11:35 Source: patient, family Mode of arrival: wheelchair Limitations: no limitations Nursing Notes Reviewed: Yes Vital Signs Reviewed: Yes - History of Present Illness HPI Narrative: 76-year-old who was at a [employer] with his daughter became acutely shaky and weak with generalized weakness set out of the chair and actually apparently suffered a syncopal episode. Patient has had a bleeding ulcer in the past hasn' t gotten blood. He denies any blood in his stool he has not vomited any blood is not nauseated now and he denies any pain. 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 Duration: second(s) Prodromal Symptoms: lightheaded Context: other Injuries Sustained Associated with Event: none Current Symptoms: weakness (Generalized weakness) History: other (GI bleed in the past) Treatments prior to arrival: none Associated trauma secondary to event: No - Related Data Home Medications Medication Instructions Recorded Confirmed Albuterol Neb [Proventil Neb] 2.5 mg IH TID PRN 05/12/16 09/17/16 Albuterol Sulfate [Albuterol 2 puff IH Q4H PRN 05/12/16 09/17/16 Inhaler] Aspirin Enteric Coated [Aspirin EC] 81 mg PO DAILY 05/12/16 09/17/16 Citalopram Hydrobromide [Celexa] 40 mg PO DAILY 05/12/16 09/17/16 Fluticasone Furoate [Arnuity 100 mcg IH DAILY 05/12/16 09/17/16 Ellipta] Lisinopril [Zestril] 5 mg PO DAILY 05/12/16 09/17/16 Metformin HCl [Metformin HCl ER] 500 mg PO QPM 05/12/16 09/17/16 Multivitamin [Multi-Day Vitamins] 1 each PO DAILY 05/12/16 09/17/16 Simvastatin [Zocor] 20 mg PO HS 05/12/16 09/17/16 Umeclidinium Brm/Vilanterol Tr 1 each IH DAILY 05/12/16 09/17/16 [Anoro Ellipta 62.5-25 Mcg INH] Previous Rx's Medication Instructions Recorded Omeprazole [PriLOSEC] 40 mg PO DAILY #30 cap 05/14/16 Allergies Allergy/AdvReac Type Severity Reaction Status Date / Time Penicillins AdvReac Rash Verified 09/17/16 13:51 Constitutional: Denies: fever, chills, weakness, weight change Eyes: Denies: eye pain, eye discharge, vision change ENT ED: Denies: ear pain, throat pain, dental pain, hearing loss, epistaxis, congestion, dysphagia Cardiovascular: Reports: syncope. Denies: chest pain, palpitations, dyspnea on exertion, edema Respiratory: Denies: cough, dyspnea, wheezes, hemoptysis, stridor Gastrointestinal: Denies: abdominal pain, nausea, vomiting, diarrhea, constipation, hematemesis, melena, hematochezia Genitourinary: Denies: urgency, dysuria, frequency, hematuria Musculoskeletal: Denies: back pain, neck pain, arthralgia, myalgia Integumentary: Denies: rash, abrasion, lesions Neurological: Reports: weakness (Generalized). Denies: headache, numbness, paresthesias, confusion, abnormal gait, vertigo Psychiatric: Denies: anxiety, depression, suicidal thoughts, homicidal thoughts , auditory hallucinations, visual hallucinations Endocrine: Denies: fatigue Hematological/Lymphatic: Denies: easy bleeding, easy bruising Allergic/Immunologic: Denies: facial swelling, urticaria Past Medical History - Past Medical History Medical history: Reports: COPD, diabetes, GI bleed, hyperlipidemia, hypertension , TIA, other Surgical history: Reports: other (traumatic left toes (all 5) amputation) Psychiatric history: Reports: no psych history - Social History Smoking Status: Former smoker Smokeless Tobacco Status: No Alcohol use: Reports: none Drug use: Reports: none Physical Exam - General Limitations: no limitations General appearance: alert, in no apparent distress - Head Head exam: atraumatic, normocephalic, normal inspection - Eye Eye exam: Present: normal appearance, PERRL, EOMI - ENT ENT exam: normal exam, normal oropharynx, mucous membranes moist - Neck Neck exam: Present: normal inspection, full ROM, trachea midline - Chest Chest inspection: Present: normal inspection, symmetric chest wall rise - Respiratory Respiratory exam: Present: normal lung sounds bilaterally - Cardiovascular Cardiovascular exam: Present: regular rate, normal rhythm, normal heart sounds - Abdominal Exam Abdominal exam: Present: soft, Non-Tender. Absent: tenderness, distention, guarding, rebound, rigidity - Rectal Exam Heel Top Lift Splitter present during exam: Yes Rectal exam: Present: normal inspection, normal rectal tone, other (Stool is brown). Absent: tenderness - Extremities Exam Extremities exam: Present: normal inspection, full ROM. Absent: tenderness, pedal edema - Expanded Lower Extremity Exam Neurovascular/Tendon exam: Absent: motor deficit, sensory deficit, tendon deficit Gait: not tested/not observed - Back Exam Back exam: Present: normal inspection, full ROM. Absent: tenderness - Neurological Exam Neurological exam: Present: alert, oriented X3 - Psychiatric Psychiatric exam: Present: normal affect, normal mood - Skin Skin exam: Present: warm Course - Reevaluation(s) Reevaluation #1: 76-year-old at the [employer] today and became generally weak and suffered a syncopal episode. Patient does have a history of previous bleeding ulcers in the past although he's had no blood in the stool and no vomiting of blood. Hemoglobin was found to be low and he does have fairly severe pulmonary disease. Consultation obtained with hospitalist regarding had admittance likely with fluids his hemoglobin dropped further due to the delusional effect sort of go ahead and transfuse in light of his chronic disease. Time: 13:34 - Consultations Consultation #1: Discussed with Dr. Gallardo, admit. Time: 13:35 Vital Signs Temperature 97.8 F 09/17/16 11:29 Pulse Rate 73 09/17/16 11:29 Respiratory Rate 20 09/17/16 11:29 Blood Pressure 94/59 09/17/16 11:29 O2 Sat by Pulse Oximetry 96 09/17/16 11:29 Temperature 98.6 F 09/17/16 19:46 Pulse Rate 72 09/17/16 19:46 Respiratory Rate 18 09/17/16 19:46 Blood Pressure 126/70 09/17/16 19:46 O2 Sat by Pulse Oximetry 98 09/17/16 19:46 Oxygen Delivery Oxygen Delivery Room Air Syncope - Lab Data Lab results reviewed: Yes I reviewed the patient's lab results. Result diagrams: 09/17/16 11:49 09/17/16 11:49 Lab Results 09/17/16 09/17/16 09/17/16 Range/Units 11:40 11:49 11:49 WBC 8.5 (4.3-11.1) K/mcL RBC 3.53 L (4.19-5.50) M/mcL Hgb 8.0 L (12.9-16.9) g/dL Hct 27.6 L (37.5-50.1) % MCV 78.2 L (83.0-100.0) fL MCH 22.7 L (28.0-33.3) pg MCHC 29.0 L (31.6-35.5) g/dL RDW 16.2 H (11.5-14.5) % Plt Count 336 (140-400) K/mcL MPV 9.0 L (9.4-12.4) fL Immature Gran % 0.2 (0-4) % Seg Neutrophils % 78.6 % Lymphocytes % 13.0 % Monocytes % 6.5 % Eosinophils % 0.8 % Basophils % 0.9 % Neutrophils # 6.7 (1.6-8.9) K/mcL Lymphocytes # 1.1 (0.6-4.6) K/mcL Monocytes # 0.6 (0.0-1.3) K/mcL Eosinophils # 0.1 (0.0-0.6) K/mcL Basophils # 0.1 (0.0-0.2) K/mcL PT 11.6 (9.4-12.1) Seconds INR 1.1 APTT 24.0 L (26.0-36.0) Seconds Sodium (136-145) mEq/L Potassium (3.5-4.5) mEq/L Chloride (98-109) mEq/L Carbon Dioxide (19-29) mEq/L BUN (8-26) mg/dL Creatinine (0.72-1.25) mg/dL Est GFR ( Amer) (> 60) Est GFR (Non-Af Amer) (> 60) BUN/Creatinine Ratio (6-26) Glucose (70-99) mg/dL Calculated Osmolality (280-300) Lactic Acid (0.5-2.2) mmol/L Calcium (8.6-10.8) mg/dL Troponin I (0-0.03) ng/mL Stool Occult Blood Negative (Negative) Blood Type Antibody Screen Crossmatch 09/17/16 09/17/16 09/17/16 Range/Units 11:49 11:49 11:49 WBC (4.3-11.1) K/mcL RBC (4.19-5.50) M/mcL Hgb (12.9-16.9) g/dL Hct (37.5-50.1) % MCV (83.0-100.0) fL MCH (28.0-33.3) pg MCHC (31.6-35.5) g/dL RDW (11.5-14.5) % Plt Count (140-400) K/mcL MPV (9.4-12.4) fL Immature Gran % (0-4) % Seg Neutrophils % % Lymphocytes % % Monocytes % % Eosinophils % % Basophils % % Neutrophils # (1.6-8.9) K/mcL Lymphocytes # (0.6-4.6) K/mcL Monocytes # (0.0-1.3) K/mcL Eosinophils # (0.0-0.6) K/mcL Basophils # (0.0-0.2) K/mcL PT (9.4-12.1) Seconds INR APTT (26.0-36.0) Seconds Sodium 138 (136-145) mEq/L Potassium 4.0 (3.5-4.5) mEq/L Chloride 106 (98-109) mEq/L Carbon Dioxide 22 (19-29) mEq/L BUN 12 (8-26) mg/dL Creatinine 1.23 (0.72-1.25) mg/dL Est GFR ( Amer) > 60 (> 60) Est GFR (Non-Af Amer) 58 L (> 60) BUN/Creatinine Ratio 10 (6-26) Glucose 164 H (70-99) mg/dL Calculated Osmolality 289 (280-300) Lactic Acid 2.4 H (0.5-2.2) mmol/L Calcium 9.1 (8.6-10.8) mg/dL Troponin I 0.01 (0-0.03) ng/mL Stool Occult Blood (Negative) Blood Type Antibody Screen Crossmatch 09/17/16 Range/Units 12:41 WBC (4.3-11.1) K/mcL RBC (4.19-5.50) M/mcL Hgb (12.9-16.9) g/dL Hct (37.5-50.1) % MCV (83.0-100.0) fL MCH (28.0-33.3) pg MCHC (31.6-35.5) g/dL RDW (11.5-14.5) % Plt Count (140-400) K/mcL MPV (9.4-12.4) fL Immature Gran % (0-4) % Seg Neutrophils % % Lymphocytes % % Monocytes % % Eosinophils % % Basophils % % Neutrophils # (1.6-8.9) K/mcL Lymphocytes # (0.6-4.6) K/mcL Monocytes # (0.0-1.3) K/mcL Eosinophils # (0.0-0.6) K/mcL Basophils # (0.0-0.2) K/mcL PT (9.4-12.1) Seconds INR APTT (26.0-36.0) Seconds Sodium (136-145) mEq/L Potassium (3.5-4.5) mEq/L Chloride (98-109) mEq/L Carbon Dioxide (19-29) mEq/L BUN (8-26) mg/dL Creatinine (0.72-1.25) mg/dL Est GFR ( Amer) (> 60) Est GFR (Non-Af Amer) (> 60) BUN/Creatinine Ratio (6-26) Glucose (70-99) mg/dL Calculated Osmolality (280-300) Lactic Acid (0.5-2.2) mmol/L Calcium (8.6-10.8) mg/dL Troponin I (0-0.03) ng/mL Stool Occult Blood (Negative) Blood Type O POSITIVE Antibody Screen NEGATIVE Crossmatch See Detail - EKG Data EKG attestation: Yes I reviewed and interpreted this EKG. EKG shows normal: sinus rhythm Rate: normal Rhythm: NSR Interpretation: no acute changes Critical Care Time Critical Care Time: Yes Total Critical Care Time: 30 Attestation: The high probability of a clinically significant, sudden or life threatening deterioration of the [hematologic] system(s) required my full and direct attention, intervention and personal management. The aggregate critical care time was [30] minutes. This time is in addition to time spent performing reported procedures but includes the following: [x] Data Review and interpretation [x] Patient assessment and monitoring of vital signs [x] Documentation [x Medication orders and management
[2016-09-17 11:56] LABS: Basophils # 0.1 K/mcL (0.0-0.2); Basophils % 0.9 %; Eosinophils # 0.1 K/mcL (0.0-0.6); Eosinophils % 0.8 %; Hematocrit 27.6 % (37.5-50.1); Immature Granulocytes % 0.2 % (0-4); Lymphocytes # 1.1 K/mcL (0.6-4.6); Mean Corpuscular Hemoglobin 22.7 pg (28.0-33.3); Mean Corpuscular Volume 78.2 fL (83.0-100.0); Monocytes # 0.6 K/mcL (0.0-1.3); Monocytes % 6.5 %; Neutrophils # 6.7 K/mcL (1.6-8.9); Platelet Count 336 K/mcL (140-400); Red Blood Count 3.53 M/mcL (4.19-5.50); Red Cell Distribution Width 16.2 % (11.5-14.5); Segmented Neutrophils % 78.6 %
[2016-09-17 12:04] LABS: INR 1.1; Prothrombin Time 11.6 Seconds (9.4-12.1)
[2016-09-17 12:09] LABS: BUN/Creatinine Ratio 10 (6-26); Blood Urea Nitrogen 12 mg/dL (8-26); Calcium 9.1 mg/dL (8.6-10.8); Carbon Dioxide 22 mEq/L (19-29); Chloride 106 mEq/L (98-109); Glucose 164 mg/dL (70-99); Osmolality,Calculated 289 (280-300); Sodium 138 mEq/L (136-145); eGFR For African Americans > 60 (> 60); eGFR For Non-African Americans 58 (> 60)
[2016-09-17] MEDS ORDERED: Pantoprazole 40 MG VIAL IVP ONE (13:33)
[2016-09-17] MEDS ORDERED: *HR* HYDROcodone/Acet 5/325 mg TABLET PO PRN (13:47)
[2016-09-17] MEDS ORDERED: Naloxone 0.4 MG/ML INJ IVP PRN (13:47)
[2016-09-17] MEDS ORDERED: Ondansetron 4 MG/2 ML VIAL IVP PRN (13:47)
[2016-09-17] MEDS ORDERED: Acetaminophen 325 MG TABLET PO PRN (13:47)
[2016-09-17] MEDS ORDERED: *HR* Morphine 2 MG/ML SYRINGE IVP PRN (13:47)
[2016-09-17] MEDS ORDERED: D5% in Water 1,000 ML IVC PRN (13:56)
[2016-09-17] MEDS ORDERED: *HR* Dextrose 50 % in Water (Syg) 50 ML SYRINGE IVP PRN (13:56)
[2016-09-17] MEDS ORDERED: Dextrose Gel 15 GM PO PRN ×2 (13:56)
[2016-09-17] MEDS ORDERED: Pantoprazole 40 MG VIAL IVP SCH (14:00)
--- NOTE | 2016-09-17 14:12 | Internal Med History&Physical ---
<Toby Membreno - Last Filed: 09/17/16 15:04> Date of Encounter: 09/17/16 Time of Encounter: 13:00 Assessment and Plan (1) Dizziness Current visit: Yes Status: Acute Patient presents with acute on chronic dizziness. Patient reports he is always dizzy, sometimes with positional changing. Echocardiogram ordered as well as bilateral carotid Doppler duplex imaging. Patient placed on continuous cardiac telemetry and supplemental O2. Patient placed as falls precautions/up with assist/bed rest with bathroom privileges with assist only due to dizziness and hx of syncope/pre-syncope. (2) Generalized weakness Current visit: Yes Status: Acute Patient presents with acute generalized weakness. Patient reports he was at a [employer] and became weak and shaky. Echocardiogram ordered as well as bilateral carotid Doppler duplex imaging. Patient placed on continuous cardiac telemetry and supplemental O2. A1c ordered and blood glucose ACHS to assess for hypoglycemia/hyperglycemia. Patient placed as falls precautions/up with assist/ bed rest with bathroom privileges with assist only due to dizziness and hx of syncope/pre-syncope. (3) HLD (hyperlipidemia) Current visit: Yes Status: Chronic Patient presents with history of chronic hyperlipidemia. Lipid panel ordered. Will continue patient's Zocor. Qualifiers: Hyperlipidemia type: pure hypercholesterolemia Qualified Code(s): E78.00 - Pure hypercholesterolemia, unspecified; E78.0 - Pure hypercholesterolemia (4) HTN (hypertension) Current visit: Yes Status: Chronic Patient presents with history of chronic hypertension. Will monitor patient's vital signs and continue patient's lisinopril. Qualifiers: Hypertension type: essential hypertension Qualified Code(s): I10 - Essential (primary) hypertension (5) Anemia Current visit: Yes Status: Chronic Patient presents with chronic anemia due to history of GI ulcers and GI bleed of unknown source. Patient denies any unusual bleeding and fecal occult stool is negative today. Patient's previous Hgb was 11.6 and Hct was 34.7 in May. Hgb is 8.0 and Hct is 27.6 today on admission. Type and screen ordered for possible transfusion needs. Patient's last GI consult was in May during his last admission for black, tarry stools. IVP Protonix 40 mg daily ordered. Qualifiers: Anemia type: unspecified type Qualified Code(s): D64.9 - Anemia, unspecified (6) COPD (chronic obstructive pulmonary disease) Current visit: Yes Status: Chronic Patient presents with history of chronic COPD. Reports use of home O2 @ 2.5L HS. Supplemental O2 and SpO2 monitoring ordered with titration if SpO2 < 92%. DuoNebs ordered Q6 scheduled. Qualifiers: COPD type: unspecified COPD Qualified Code(s): J44.9 - Chronic obstructive pulmonary disease, unspecified (7) DVT prophylaxis Current visit: Yes Status: Acute Patient to be placed on DVT prophylaxis due to current admission protocol and bed rest status. Due to patient's drop in Hgb and Hct and GI bleed of unknown origin, pharmacologic DVT prophylaxis is contraindicated. Bilateral SCDs ordered for patient's LEs. Internal Medicine - H&P: HPI Chief complaint: Pre-syncope/dizziness Admitted From: Emergency Dept Plans for Post Hospital Care: Home History of present illness: Mr. Lester is a 76 year old male who presents from the ED with chief complaint of near syncope today when he was at a [employer]. The patient states that he became weak and shaky and was able to sit down without blacking out. He does report that he had a syncopal episode in the spring when he did black out completely. Patient states that he becomes dizzy on occasion and he also has a history of chronic anemia due to a GI bleed that cannot be identified. Patient presents with Hgb of 8.0 and HCT of 27.6 on admission to ED today. Hgb was 11.6 and Hct was 34.7 in May. Ed ordered type an screen for possible transfusion. Patient denies any unusual bleeding or blood in urine/stool. Patient does report urinary hesitancy. Patient's medical history includes COPD, diabetes controlled by metformin, GI bleed, hyperlipidemia, hypertension, TIAs (with the last TIA episode in spring). Patient was a former smoker and reportedly quit in 1994 and smoked one 1.5 packs per day. Patient currently denies any abdominal pain, chest pain, nausea, vomiting, diarrhea, constipation, palpitations, headache, numbness, tingling, abnormal gait, or vertigo. Mr. Lester is a moderate risk for morbidity based on current symptoms and anemia and will be placed as observation status with orders for continuous cardiac telemetry, supplemental O2 with SPO2 monitoring, bilateral carotid Doppler duplex imaging, and follow safety precautions. Patient to be monitored closely. Time spent with patient greater than 40 minutes. Past Med Surg Social Fam HX - Past Medical History Source: patient Medical history: COPD, diabetes, GI bleed, hyperlipidemia, hypertension, TIA, other Psychiatric history: no psych history - Past Surgical History Surgical History: other (Traumatic left toes (all 5) amputation due to accident , removal of benign tumor on neck) - Social History Smoking Status: Former smoker Packs per day: 1.5 - reports quitting in 1994 Smokeless Tobacco Status: No Alcohol use: none Drug use: none Occupational status: previously employed Current living situation: Home, With Family Activity Level: Independent ambulation, Uses cane/walker Recent Out of Country Travel Within the Last 8 Weeks: No Exposure or Possible Exposure to Illness During Travel: No - Family History Brother Race: Family Member Ethnicity: Non- Living Status: Hx Family Cancer: Yes Hx Family Endocrine Disorder: Yes (DM) Father Race: Family Member Ethnicity: Non- Living Status: Hx Family Cardiac Disorders: Yes Hx Family Respiratory Disorders: Yes (Asthma) Hx Family Cancer: No Hx Family GI Disorders: No Hx Family Endocrine Disorder: No Hx Family Neuromuscular Disorders: No Hx Family Neurologic Disorders: No Hx Family HEENT Disorders: No Hx Family Autoimmune Disorders: No Mother Race: Family Member Ethnicity: Non- Living Status: Hx Family Cardiac Disorders: No Hx Family Respiratory Disorders: No Hx Family Cancer: No Hx Family GI Disorders: No Hx Family Endocrine Disorder: No Hx Family Neuromuscular Disorders: No Hx Family Neurologic Disorders: No Hx Family HEENT Disorders: No Hx Family Autoimmune Disorders: No Internal Medicine - H&P: Meds Albuterol Neb [Proventil Neb] 2.5 mg IH TID PRN 05/12/16 [History] Albuterol Sulfate [Albuterol Inhaler] 2 puff IH Q4H PRN 05/12/16 [History] Aspirin Enteric Coated [Aspirin EC] 81 mg PO DAILY 05/12/16 [History] Citalopram Hydrobromide [Celexa] 40 mg PO DAILY 05/12/16 [History] Fluticasone Furoate [Arnuity Ellipta] 100 mcg IH DAILY 05/12/16 [History] Lisinopril [Zestril] 5 mg PO DAILY 05/12/16 [History] Metformin HCl [Metformin HCl ER] 500 mg PO QPM 05/12/16 [History] Multivitamin [Multi-Day Vitamins] 1 each PO DAILY 05/12/16 [History] Simvastatin [Zocor] 20 mg PO HS 05/12/16 [History] Umeclidinium Brm/Vilanterol Tr [Anoro Ellipta 62.5-25 Mcg INH] 1 each IH DAILY 05/12/16 [History] Omeprazole [PriLOSEC] 40 mg PO DAILY #30 cap 05/14/16 [Rx] Allergies Penicillins Adverse Reaction (Verified 09/17/16 13:51) Rash All Systems PM: A 10-system review of systems was performed and is negative for pertinent findings except as documented above in the HPI. - Constitutional Constitutional: as per HPI, falls, weakness, no chills, no fever(s), no night sweats - EENT Eyes: no change in vision, no discharge, no pain, no photophobia Ears: no ear discharge, no ear pain, no tinnitus Nose, mouth and throat: no dysphagia, no nasal discharge, no neck pain, no sore throat - Breasts Breasts: as per HPI - Cardiovascular Cardiovascular ROS IM: as per HPI, dyspnea, dyspnea on exertion, syncope, other (Pre-syncope), no chest pain, no diaphoresis, no lightheadedness, no palpitations - Respiratory Respiratory: as per HPI, dyspnea, dyspnea on exertion, wheezing, no cough, no excessive phlegm production - Gastrointestinal Gastrointestinal: no abdominal pain, no diarrhea, no hematemesis, no hematochezia, no melena, no nausea, no vomiting - Genitourinary Genitourinary ROS male: as per HPI, difficulty urinating, urinary hesitancy - Musculoskeletal Musculoskeletal ROS IM: no numbness, no tingling - Integumentary Integumentary IM: no rash, no unusual bruising - Neurological Neurological ROS: as per HPI, dizziness, frequent falls, weakness, no confusion , no convulsions, no focal weakness, no numbness, no tingling, no tremor(s) - Psychiatric Psychiatric: as per HPI - Endocrine Endocrine IM: as per HPI - Hematologic/Lymphatic Hematologic/Lymphatic: as per HPI, easy bleeding (GI bleed of unknown source) - Allergic/Immunologic Allergic/Immunologic: as per HPI - Constitutional Vitals: Temp Pulse Resp BP Pulse Ox 97.8 F 65 16 108/70 100 09/17/16 11:29 09/17/16 12:54 09/17/16 12:54 09/17/16 12:54 09/17/16 12:54 General appearance: Present: cooperative, mild distress, A&O X 3, pleasant, obese, answers questions appropriately - Head Head exam: Present: atraumatic, normocephalic - Eye Eye exam: Present: PERRL, conjuntiva pink, sclera anicteric Pupils: Present: PERRL - ENT ENT exam: Present: normal exam, normal external ear exam - Neck Neck exam general surgery: Present: normal inspection, supple, trachea midline. Absent: lymphadenopathy - Respiratory Respiratory exam: Present: decreased breath sounds, CTAB, wheezes. Absent: accessory muscle use, rales, rhonchi - Cardiovascular Cardiovascular exam: Present: RRR, +S1, +S2. Absent: diastolic murmur, gallop, rubs, systolic murmur - GI/Abdominal GI/Abdominal exam: Present: normal bowel sounds, soft, no peritoneal signs. Absent: distended, tenderness - Rectal Rectal exam: Present: deferred - Additional comments: exam deferred. - Extremities Exam Extremities exam: Present: warm, radial pulses palpable and symmetrical. Absent : calf tenderness, cyanotic, pedal edema - Back Exam Back exam: Present: normal inspection - Neurological Exam Neurological exam: Present: CN II-XII intact, oriented X3, no focal deficits. Absent: pronater drift, facial droop, speech deficit - Psychiatric Psychiatric exam: Present: normal affect, normal mood - Skin Skin exam: Present: dry, intact Internal Med - H&P Results - Labs CBC & Chem 7: 09/17/16 11:49 09/17/16 11:49 Labs: Short CBC 09/17/16 Range/Units 11:49 WBC 8.5 (4.3-11.1) K/mcL Hgb 8.0 L (12.9-16.9) g/dL Hct 27.6 L (37.5-50.1) % Plt Count 336 (140-400) K/mcL Neutrophils # 6.7 (1.6-8.9) K/mcL BMP 09/17/16 11:49 Sodium 138 Potassium 4.0 Chloride 106 Carbon Dioxide 22 BUN 12 Creatinine 1.23 Glucose 164 H Calcium 9.1 Cardiac Enzymes 09/17/16 Range/Units 11:49 Troponin I 0.01 (0-0.03) ng/mL - EKG Data EKG shows normal: sinus rhythm Rate: normal - EKG Data Interpretation IM: normal EKG - Impressions ITS Impressions Chest X-Ray 09/17/16 11:35 IMPRESSION: No acute process. D/ / Kelsi Armstrong MD / Kelsi Armstrong MD Interpreting Provider: Kelsi Armstrong MD Head CT 09/17/16 11:40 IMPRESSION: 1. No acute intracranial abnormality. 2. Mild age-appropriate diffuse atrophy with moderate to severe chronic small vessel ischemic changes. D/ / Demario Callejas MD / Demario Callejas MD Interpreting Provider: Demario Callejas MD - Diagnostic Studies Chest x-ray Additional comments: Impressions Chest X-Ray 09/17/16 11:35 IMPRESSION: No acute process. D/ / Kelsi Armstrong MD / Kelsi Armstrong MD Interpreting Provider: Kelsi Armstrong MD CT scan - head Additional comments: Impressions Head CT 09/17/16 11:40 IMPRESSION: 1. No acute intracranial abnormality. 2. Mild age-appropriate diffuse atrophy with moderate to severe chronic small vessel ischemic changes. D/ / Demario Callejas MD / Demario Callejas MD Interpreting Provider: Demario Callejas MD <Pedro Gallardo - Last Filed: 09/17/16 17:42> Date of Encounter: 09/17/16 Internal Medicine - H&P: HPI History of present illness: Mr. Lester is a 76 year old male All Systems PM: A 10-system review of systems was performed and is negative for pertinent findings except as documented above in the HPI. - Constitutional Vitals: Temp Pulse Resp BP Pulse Ox 98.4 F 78 16 135/75 99 09/17/16 16:54 09/17/16 16:54 09/17/16 16:54 09/17/16 16:54 09/17/16 16:54 Internal Med - H&P Results - Labs CBC & Chem 7: 09/17/16 11:49 09/17/16 11:49 - Attending Attestation I examined this patient and my medical decision-making was reviewed with the WIND UP OPERATOR. I agree with the documented findings, disposition and treatment plan as described
[2016-09-17] MEDS ORDERED: 0.9 % Sodium Chloride 250 ML ONE (14:22)
--- NOTE | 2016-09-17 16:20 | Electrocardiograph Report ---
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
[2016-09-17] MEDS: Ipratropium/Albuterol Neb 3 ML IH SCH ×2 (16:32→21:32)
[2016-09-17] MEDS: 0.9 % Sodium Chloride 1,000 ML IVC SCH (17:32)
[2016-09-17] MEDS: Insulin LISPRO 300 UNITS/3 ML VIAL SQ SCH ×2 (17:34→20:59)
--- NOTE | 2016-09-17 21:16 | Carotid Imaging Report ---
Carotid Duplex Patient Name:Harmeet Lester Order Number:[id number] Procedure Date:09/17/2016 Date:1940ge:76 yrs Gender:Male Rt.BP:126 / 70 mmHgHeart Rate: Location:[facility] Room #: 2A12 Range Aid:Nayeli Nolan, RDCS Referring MD:Toby Membreno, DATABASE CONSULTANT roll icer machine:Raymon Narayanan MD Reading MD:Josue Rush MD , FACS Primary Indications:Pre-syncope Risk Factors Yes/No Hypertension Yes Hypercholesterolemia Yes Diabetes Yes Smoker Previous Yes Hx of TIA Yes Impressions: Findings: Right mid ICA has a severe, 60-79% stenosis. Findings: Left carotid system is essentially normal. Findings Carotid Duplex: Right: The right proximal common carotid artery has a PSV of 102 cm/s and a EDV of 22 cm/s. The right mid common carotid artery has a PSV of 101 cm/s and a EDV of 20 cm/s. The right distal common carotid artery has a PSV of 90 cm/s and a EDV of 18 cm/s. The right bifurcation has a PSV of 95 cm/s and a EDV of 20 cm/s. There is nonstenotic plaque in the right proximal internal carotid artery with a PSV of 98 cm/s and a EDV of 23 cm/s. There is 60-79% stenosis in the right mid internal carotid artery with a PSV of 177 cm/s and a EDV of 62 cm/s. The right distal internal carotid artery has a PSV of 114 cm/s and a EDV of 32 cm/s. The right eca has a PSV of 165 cm/s and a EDV of 17 cm/s. The right vertebral artery has a PSV of 46 cm/s and a EDV of 18 cm/s. There is antegrade spectral Doppler flow patterns. Left: The left proximal common carotid artery has a PSV of 114 cm/s and a EDV of 21 cm/s. The left mid common carotid artery has a PSV of 118 cm/s and a EDV of 26 cm/s. The left distal common carotid artery has a PSV of 87 cm/s and a EDV of 18 cm/s. The left bifurcation has a PSV of 90 cm/s and a EDV of 22 cm/s. There is nonstenotic plaque in the left proximal internal carotid artery with a PSV of 79 cm/s and a EDV of 25 cm/s. The left mid internal carotid artery has a PSV of 113 cm/s and a EDV of 36 cm/s. The left distal internal carotid artery has a PSV of 107 cm/s and a EDV of 37 cm/s. The left eca has a PSV of 130 cm/s and a EDV of 20 cm/s. The left vertebral artery has a PSV of 45 cm/s and a EDV of 16 cm/s. There is antegrade spectral Doppler flow patterns. Prior Study: No prior study available for comparison. Carotid Results Right PSV EDV Assessment Proximal CCA 102 22 Mid CCA 101 20 Distal CCA 90 18 Bifurcation 95 20 Proximal ICA 98 23 Non Stenotic Plaque Mid ICA 177 62 60-79% stenosis Distal ICA 114 32 ECA 165 17 Vertebral Artery 46 18 Antegrade Flow Left PSV EDV Assessment Proximal CCA 114 21 Mid CCA 118 26 Distal CCA 87 18 Bifurcation 90 22 Proximal ICA 79 25 Non Stenotic Plaque Mid ICA 113 36 Distal ICA 107 37 ECA 130 20 Vertebral Artery 45 16 Antegrade Flow Ratio's Right ICA/CCA Ratio: 1.16 ICA/CCA Values: 177/101 Left ICA/CCA Ratio: 0.96 ICA/CCA Values: 113/118 Updated by Josue Rush MD, FACS on 09/17/2016 9:10:21 PM Josue Rush MD electronically signed on 09/17/2016 9:10:39 PM with status of Final
[2016-09-18] MEDS: Ipratropium/Albuterol Neb 3 ML IH SCH ×4 (03:20→21:41)
[2016-09-18] MEDS: 0.9 % Sodium Chloride 1,000 ML IVC SCH ×2 (04:02→18:12)
[2016-09-18 06:28] LABS: Basophils # 0.1 K/mcL (0.0-0.2); Basophils % 1.1 %; Eosinophils # 0.1 K/mcL (0.0-0.6); Eosinophils % 1.5 %; Hematocrit 26.7 % (37.5-50.1); Immature Granulocytes % 0.5 % (0-4); Lymphocytes # 1.5 K/mcL (0.6-4.6); Lymphocytes % 19.6 %; Mean Corpuscular Hemoglobin 23.7 pg (28.0-33.3); Mean Corpuscular Volume 79.2 fL (83.0-100.0); Mean Platelet Volume 10.1 fL (9.4-12.4); Monocytes # 0.6 K/mcL (0.0-1.3); Monocytes % 8.1 %; Neutrophils # 5.2 K/mcL (1.6-8.9); Platelet Count 318 K/mcL (140-400); Red Blood Count 3.37 M/mcL (4.19-5.50); Red Cell Distribution Width 16.7 % (11.5-14.5); Segmented Neutrophils % 69.2 %
[2016-09-18 06:34] LABS: INR 1.1; Prothrombin Time 12.1 Seconds (9.4-12.1)
[2016-09-18 06:36] LABS: Activated Partial Thrombo Time 24.7 Seconds (26.0-36.0)
[2016-09-18 06:43] LABS: Hemoglobin A1C 5.7 %
[2016-09-18 06:54] LABS: BUN/Creatinine Ratio 12 (6-26); Blood Urea Nitrogen 12 mg/dL (8-26); Calcium 8.8 mg/dL (8.6-10.8); Carbon Dioxide 24 mEq/L (19-29); Chloride 109 mEq/L (98-109); Chol/HDL Ratio 3.3 (0-4.9); Cholesterol 135 mg/dL (< 200); Glucose 103 mg/dL (70-99); HDL Cholesterol 41 mg/dL (40-59); LDL Cholesterol,Calculated 74 mg/dL (0-99); Magnesium 1.8 mg/dL (1.6-2.6); Osmolality,Calculated 288 (280-300); Sodium 139 mEq/L (136-145); Triglycerides 100 mg/dL (< 150); eGFR For African Americans > 60 (> 60); eGFR For Non-African Americans > 60 (> 60)
[2016-09-18] MEDS: Insulin LISPRO 300 UNITS/3 ML VIAL SQ SCH ×4 (07:29→21:06)
[2016-09-18] MEDS: Aspirin Enteric Coated 81 MG Tablet PO SCH (07:31)
[2016-09-18] MEDS: Multivit/Ca/Min/Fe/FA 1 TAB TABLET PO SCH (07:31)
--- NOTE | 2016-09-18 08:48 | Internal Med Progress Note ---
<Nelson Chavarria - Last Filed: 09/18/16 10:38> Date of Encounter: 09/18/16 Time of Encounter: 08:32 - Assessment and plan (1) Dizziness Current Visit: Yes Status: Acute Assessment and plan: Most likely carotid stensosi vs anemia vs dehydration (volume down) vs less likely ACS vs less likely hypoglycemic. upon hositalization BP 94/59 and hgb 8.0. given 1 L IVF and transfused 1 unit prbc in ED. Carotid duplex R mid ICA 60-79% stenosis, and normal left carotid.. No acute process found on Headt CT and CXR. EKG showed sinus rhythm, and trop 0.01. Chol Panel WNL. glu 103 and a1c 5.7. - closely monitor BP, h+h, glucose, and volume status. - Vascular surgery consulted - fall precautions - will place consult for OT/PT after vascular surgery consult (2) GI bleed Current Visit: No Status: Acute Assessment and plan: chronic GI bleed, unidentified location. prev. GI visit 05/24 with black tarry stools. bleed not identified. previous hgb 11.6 hct 34.7 in may. admitted with hgb 8.0 and hct 27.6. stool occult negative. O positive. - follow h+h closely, consider transfusion - continue IV protonix - GI consult - Qualifiers: GI bleed type/associated pathology: melena Qualified Code(s): K92.1 - Melena (3) COPD (chronic obstructive pulmonary disease) Current Visit: Yes Status: Chronic Assessment and plan: home O2 @ 2.5L HS. Supplemental O2 and SpO2 monitoring ordered with titration if SpO2 < 92%. DuoNebs ordered Q6 scheduled - continue home duonebs - continue home O2 Qualifiers: COPD type: unspecified COPD Qualified Code(s): J44.9 - Chronic obstructive pulmonary disease, unspecified (4) Hypertension Current Visit: Yes Status: Chronic Assessment and plan: monitor BP closely. continue home meds. lisinopril 5 mg Qualifiers: Hypertension type: essential hypertension Qualified Code(s): I10 - Essential (primary) hypertension (5) Type 2 diabetes mellitus Current Visit: No Status: Chronic Assessment and plan: continue to closely [facility]. SSI Qualifiers: Diabetes mellitus complication status: without complication Diabetes mellitus watermaster insulin use: without shelter use Qualified Code(s): E11.9 - Type 2 diabetes mellitus without complications (6) DVT prophylaxis Current Visit: Yes Status: Acute Assessment and plan: mechanical prophylaxis due to CI from hgb drop and unknown GI bleed. (7) Anemia Current Visit: No Status: Acute Qualifiers: Anemia type: other cause Other causes of anemia: acute posthemorrhagic Qualified Code(s): D62 - Acute posthemorrhagic anemia (8) HLD (hyperlipidemia) Current Visit: Yes Status: Chronic Assessment and plan: continue home zocor Qualifiers: Hyperlipidemia type: pure hypercholesterolemia Qualified Code(s): E78.00 - Pure hypercholesterolemia, unspecified; E78.0 - Pure hypercholesterolemia - Subjective Interval history: Mr Lester is a 76 yo male day 1 of admission due to pre-syncopal episode on 12/24 with a hx of syncopal episodes last in may, COPD, DM, GI bleed unidentified source, HLD, HTN, TIA last in spring. Patient was standing [place] the [email or web address] when he felt prodrome of weakness and shaky when he sat down and symptoms resolved. As well he has a chronic GI bleed which has been evaluated and not identifiable source. He has 2 occassions where he's need blood transfusions due to anemia. He reports feeling a lot better this morning. patient denies n/v/d/c and any source of blood. - Constitutional Vitals: Temp Pulse Resp BP Pulse Ox 98.3 F 72 17 148/86 99 09/18/16 06:51 09/18/16 06:51 09/18/16 06:51 09/18/16 06:51 09/18/16 06:51 General appearance: Present: cooperative, mild distress, A&O X 3, pleasant, obese, answers questions appropriately - Head Head exam: Present: atraumatic, normocephalic - Neck Neck exam general surgery: Present: supple, trachea midline. Absent: lymphadenopathy - Respiratory Respiratory exam: Present: CTAB. Absent: accessory muscle use, rales, rhonchi, wheezes - Cardiovascular Cardiovascular exam: Present: RRR, +S1, +S2. Absent: diastolic murmur, gallop, rubs, systolic murmur - GI/Abdominal GI/Abdominal exam: Present: normal bowel sounds, soft, no peritoneal signs. Absent: distended, tenderness - Neurological Exam Neurological exam: Present: alert, oriented X3 - Psychiatric Psychiatric exam: Present: normal affect, normal mood Internal Medicine: Result - Labs CBC & Chem 7: 09/18/16 05:48 09/18/16 05:48 Labs: Short CBC 09/18/16 Range/Units 05:48 WBC 7.5 (4.3-11.1) K/mcL Hgb 8.0 L (12.9-16.9) g/dL Hct 26.7 L (37.5-50.1) % Plt Count 318 (140-400) K/mcL Neutrophils # 5.2 (1.6-8.9) K/mcL BMP 09/18/16 05:48 Sodium 139 Potassium 4.0 Chloride 109 Carbon Dioxide 24 BUN 12 Creatinine 1.04 Glucose 103 H Calcium 8.8 - ABG Interpretation ABG results: PT/INR, D-dimer PT 12.1 Seconds (9.4-12.1) 09/18/16 05:48 - VTE Documentation of Mechanical Device: Intermittent pneumatic compression device Consult Discharge Plan - Plan Referrals: Raymon Narayanan MD [Primary Care Provider] - <Donovan Gil T - Last Filed: 09/18/16 11:30> Date of Encounter: 09/18/16 - Constitutional Vitals: Temp Pulse Resp BP Pulse Ox 98.0 F 93 18 144/64 97 09/18/16 10:50 09/18/16 10:50 09/18/16 10:50 09/18/16 10:50 09/18/16 10:50 Internal Medicine: Result - Labs CBC & Chem 7: 09/18/16 05:48 09/18/16 05:48 Labs: Short CBC 09/18/16 Range/Units 05:48 WBC 7.5 (4.3-11.1) K/mcL Hgb 8.0 L (12.9-16.9) g/dL Hct 26.7 L (37.5-50.1) % Plt Count 318 (140-400) K/mcL Neutrophils # 5.2 (1.6-8.9) K/mcL BMP 09/18/16 05:48 Sodium 139 Potassium 4.0 Chloride 109 Carbon Dioxide 24 BUN 12 Creatinine 1.04 Glucose 103 H Calcium 8.8 - ABG Interpretation ABG results: PT/INR, D-dimer PT 12.1 Seconds (9.4-12.1) 09/18/16 05:48 - Attending Attestation I examined this patient and my medical decision-making was reviewed with the Resident Physician on 09/18/16. I agree with the documented findings, disposition and treatment plan as described except to the extent set forth below. 76 M Seen and evaluated at bedside He is admitted to observation for evaluation for dizziness and generalized weakness He was hypotensive on arrival Work up so far shows normal EKG, Carotid stenosis of VINICIUS 69-70% He denies new complains this morning Physical exam: VSS, Orthostats negative, BP now normal, AAOX3, moves all limbs equally, no sensory deficits, not pale, no carotid bruits, chest is clear, HS S1, S2 only, no m/g/r, abdomen is soft and not tender, extremities exam no pedal edema, s/p L TMA. Labs and Imaging reviewed A/P Continue current management Consult vascular for carotid stenosis Patient's hb is at baseline, he received 1 unit RBC Hold IVF and observe BP response to it Resume home meds A1C is 5.7 on Metformin daily, d/c metformin from home meds upon discharge NO GI bleed evidence at this time, had work up in 05/2016 Rest of details as in resident physician's documentation
[2016-09-18] MEDS ORDERED: Pantoprazole 40 MG VIAL IVP SCH (09:00)
--- NOTE | 2016-09-18 13:11 | Event Note ---
Date of Encounter: 09/18/16 Time of Encounter: 11:40 I was called this morning by one of the medical residents regarding this patient. He presented with a history of presyncope at a [employer] yesterday. The patient's workup included a carotid duplex scan. This showed a 60 -79% stenosis unilaterally with no significant stenosis on the contralateral side. In addition, however, the patient has significant COPD requiring oxygen supplementation and significant anemia with hemoglobin of 8. Because of these chronic medical issues which are more explanatory for his symptoms it is recommended the patient be evaluated and treated for these issues. The carotid artery stenosis may be further evaluated via an outpatient setting. Patient may follow up with me after his discharge and the other medical issues are addressed.
[2016-09-19] MEDS: Ipratropium/Albuterol Neb 3 ML IH SCH ×4 (03:37→22:21)
[2016-09-19 05:21] LABS: Hematocrit 25.5 % (37.5-50.1); Hemoglobin 7.6 g/dL (12.9-16.9); Mean Corpuscular HGB Conc 29.8 g/dL (31.6-35.5); Mean Corpuscular Hemoglobin 23.2 pg (28.0-33.3); Mean Platelet Volume 9.8 fL (9.4-12.4); Platelet Count 318 K/mcL (140-400); Red Blood Count 3.27 M/mcL (4.19-5.50); Red Cell Distribution Width 16.9 % (11.5-14.5)
[2016-09-19 05:29] LABS: BUN/Creatinine Ratio 10 (6-26); Blood Urea Nitrogen 10 mg/dL (8-26); Calcium 8.6 mg/dL (8.6-10.8); Carbon Dioxide 24 mEq/L (19-29); Chloride 110 mEq/L (98-109); Glucose 101 mg/dL (70-99); Osmolality,Calculated 291 (280-300); Sodium 141 mEq/L (136-145); eGFR For African Americans > 60 (> 60); eGFR For Non-African Americans > 60 (> 60)
[2016-09-19] MEDS: 0.9 % Sodium Chloride 1,000 ML IVC SCH (06:14)
[2016-09-19] MEDS: Insulin LISPRO 300 UNITS/3 ML VIAL SQ SCH ×4 (08:12→22:50)
[2016-09-19] MEDS: Aspirin Enteric Coated 81 MG Tablet PO SCH (08:19)
[2016-09-19] MEDS: Multivit/Ca/Min/Fe/FA 1 TAB TABLET PO SCH (08:19)
--- NOTE | 2016-09-19 08:19 | Internal Med Progress Note ---
<Randall Mcdaniel - Last Filed: 09/19/16 10:56> Date of Encounter: 09/19/16 Time of Encounter: 08:17 - Assessment and plan (1) Dizziness Current Visit: Yes Status: Acute Assessment and plan: Patient not complaining of dizziness currently and denies any LOC or focal symptoms Workup did show right carotid stenosis at 60-79%; vascular surgery notified and will follow as outpatient He will benefit from rehab/home health upon discharge; PT/OT/SS consulted (2) COPD (chronic obstructive pulmonary disease) Current Visit: Yes Status: Chronic Assessment and plan: Not currently in exacerbation Continue with oxygen, breathing treatments Qualifiers: COPD type: unspecified COPD Qualified Code(s): J44.9 - Chronic obstructive pulmonary disease, unspecified (3) Anemia Current Visit: No Status: Chronic Assessment and plan: Likely from chronic GI bleed; s/p 1 units of blood on 09/17 He had been on iron pills in the past but stopped them due to constipation Will restart him on PO Iron replacements and Colace PRN Low iron saturation noted in May Qualifiers: Anemia type: other cause Other causes of anemia: acute posthemorrhagic Qualified Code(s): D62 - Acute posthemorrhagic anemia (4) HTN (hypertension) Current Visit: Yes Status: Chronic Assessment and plan: Blood pressures well controlled last 24 hours Will continue home Lisinopril Qualifiers: Hypertension type: essential hypertension Qualified Code(s): I10 - Essential (primary) hypertension (5) Type 2 diabetes mellitus Current Visit: No Status: Chronic Assessment and plan: Continue low dose SSI accuchecks ACHS Qualifiers: Diabetes mellitus complication status: without complication Diabetes mellitus snf insulin use: without snf use Qualified Code(s): E11.9 - Type 2 diabetes mellitus without complications (6) DVT prophylaxis Current Visit: Yes Status: Acute Assessment and plan: SCDs in setting of anemia - Subjective Interval history: Pt seen and examined. He states he is doing well this morning and has not been dizzy or lightheaded. Denies any bleeding in his stool or urine. Has no pain, shortness of breath, fevers, nausea, vomiting, or diarrhea. - Constitutional Vitals: Temp Pulse Resp BP Pulse Ox 98.6 F 79 17 144/82 98 09/19/16 07:10 09/19/16 07:10 09/19/16 07:10 09/19/16 07:10 09/19/16 07:10 General appearance: Present: cooperative, A&O X 3, pleasant, obese, answers questions appropriately - Head Head exam: Present: atraumatic, normocephalic - Eye Eye exam: Present: PERRL, conjuntiva pink, sclera anicteric - Neck Neck exam general surgery: Present: supple, trachea midline. Absent: lymphadenopathy - Respiratory Respiratory exam: Present: CTAB. Absent: accessory muscle use, rales, rhonchi, wheezes - Cardiovascular Cardiovascular exam: Present: RRR, +S1, +S2. Absent: diastolic murmur, gallop, rubs, systolic murmur - GI/Abdominal GI/Abdominal exam: Present: normal bowel sounds, soft, no peritoneal signs. Absent: distended, tenderness - Extremities Exam Extremities exam: Present: warm, radial pulses palpable and symmetrical. Absent : calf tenderness, cyanotic, pedal edema - Neurological Exam Neurological exam: Present: alert, oriented X3, no focal deficits. Absent: facial droop, speech deficit - Skin Skin exam: Present: dry, intact Internal Medicine: Result - Labs CBC & Chem 7: 09/19/16 04:32 09/19/16 04:32 Labs: Short CBC 09/19/16 Range/Units 04:32 WBC 8.3 (4.3-11.1) K/mcL Hgb 7.6 L (12.9-16.9) g/dL Hct 25.5 L (37.5-50.1) % Plt Count 318 (140-400) K/mcL BMP 09/19/16 04:32 Sodium 141 Potassium 4.0 Chloride 110 H Carbon Dioxide 24 BUN 10 Creatinine 1.04 Glucose 101 H Calcium 8.6 Cardiac Enzymes 09/18/16 Range/Units 05:48 Troponin I 0.01 (0-0.03) ng/mL - ABG Interpretation ABG results: PT/INR, D-dimer PT 12.1 Seconds (9.4-12.1) 09/18/16 05:48 - VTE Documentation of Mechanical Device: Intermittent pneumatic compression device Consult Discharge Plan - Plan Referrals: Raymon Narayanan MD [Primary Care Provider] - <Donovan Gil T - Last Filed: 09/19/16 13:52> Date of Encounter: 09/19/16 - Constitutional Vitals: Temp Pulse Resp BP Pulse Ox 98.2 F 89 17 130/63 97 09/19/16 11:11 09/19/16 11:11 09/19/16 11:11 09/19/16 11:11 09/19/16 11:11 Internal Medicine: Result - Labs CBC & Chem 7: 09/19/16 04:32 09/19/16 04:32 Labs: Short CBC 09/19/16 Range/Units 04:32 WBC 8.3 (4.3-11.1) K/mcL Hgb 7.6 L (12.9-16.9) g/dL Hct 25.5 L (37.5-50.1) % Plt Count 318 (140-400) K/mcL BMP 09/19/16 04:32 Sodium 141 Potassium 4.0 Chloride 110 H Carbon Dioxide 24 BUN 10 Creatinine 1.04 Glucose 101 H Calcium 8.6 - ABG Interpretation ABG results: PT/INR, D-dimer PT 12.1 Seconds (9.4-12.1) 09/18/16 05:48 - Attending Attestation I examined this patient and my medical decision-making was reviewed with the Resident Physician on 09/19/16. I agree with the documented findings, disposition and treatment plan as described except to the extent set forth below. 76 M Seen and evaluated at bedside He is admitted to observation for evaluation for dizziness and generalized weakness He was hypotensive on arrival, work up so far shows normal EKG, Carotid stenosis of VINICIUS 69-70% He denies new complains this morning His ECHO is unremarkable for acute events Physical exam: VSS, Orthostats negative, BP now normal, AAOX3, moves all limbs equally, no sensory deficits, not pale, no carotid bruits, chest is clear, HS S1, S2 only, no m/g/r, abdomen is soft and not tender, extremities exam no pedal edema, s/p L TMA. Labs and Imaging reviewed A/P Continue current management PT/OT eval prior to discharge Rest of details as in resident physician's documentation
[2016-09-20 04:17] LABS: BUN/Creatinine Ratio 10 (6-26); Blood Urea Nitrogen 11 mg/dL (8-26); Calcium 9.2 mg/dL (8.6-10.8); Carbon Dioxide 26 mEq/L (19-29); Chloride 108 mEq/L (98-109); Glucose 103 mg/dL (70-99); Osmolality,Calculated 290 (280-300); Sodium 140 mEq/L (136-145); eGFR For African Americans > 60 (> 60); eGFR For Non-African Americans > 60 (> 60)
[2016-09-20 05:52] LABS: Hematocrit 28.4 % (37.5-50.1); Hemoglobin 8.3 g/dL (12.9-16.9); Mean Corpuscular HGB Conc 29.2 g/dL (31.6-35.5); Mean Corpuscular Hemoglobin 22.8 pg (28.0-33.3); Mean Platelet Volume 10.1 fL (9.4-12.4); Platelet Count 357 K/mcL (140-400); Red Blood Count 3.64 M/mcL (4.19-5.50)
[2016-09-20] MEDS: Ipratropium/Albuterol Neb 3 ML IH SCH ×2 (06:36→11:00)
[2016-09-20] MEDS: Insulin LISPRO 300 UNITS/3 ML VIAL SQ SCH (08:00)
[2016-09-20] MEDS: Multivit/Ca/Min/Fe/FA 1 TAB TABLET PO SCH (08:11)
[2016-09-20] MEDS: Aspirin Enteric Coated 81 MG Tablet PO SCH (08:11)
--- NOTE | 2016-09-20 08:40 | Discharge Summary ---
<Nelson Chavarria - Last Filed: 09/20/16 11:30> Date of Encounter: 09/20/16 Time of Encounter: 08:38 - Discharge Diagnosis (1) Dizziness Priority: Primary Status: Acute (2) GI bleed Priority: Secondary Status: Acute Qualifiers: GI bleed type/associated pathology: melena Qualified Code(s): K92.1 - Melena (3) COPD (chronic obstructive pulmonary disease) Priority: Secondary Status: Chronic Qualifiers: COPD type: unspecified COPD Qualified Code(s): J44.9 - Chronic obstructive pulmonary disease, unspecified (4) Hypertension Priority: Secondary Status: Chronic Qualifiers: Hypertension type: essential hypertension Qualified Code(s): I10 - Essential (primary) hypertension (5) Type 2 diabetes mellitus Priority: Secondary Status: Chronic Qualifiers: Diabetes mellitus complication status: without complication Diabetes mellitus termite exterminator insulin use: without half-way use Qualified Code(s): E11.9 - Type 2 diabetes mellitus without complications (6) DVT prophylaxis Priority: Secondary Status: Acute (7) Anemia Priority: Secondary Status: Chronic Qualifiers: Anemia type: other cause Other causes of anemia: acute posthemorrhagic Qualified Code(s): D62 - Acute posthemorrhagic anemia (8) HLD (hyperlipidemia) Priority: Secondary Status: Chronic Qualifiers: Hyperlipidemia type: pure hypercholesterolemia Qualified Code(s): E78.00 - Pure hypercholesterolemia, unspecified; E78.0 - Pure hypercholesterolemia - Discharge Medications Prescriptions: Ferrous Sulfate [Slow Release Iron] 200 mg PO DAILY #30 tablet.er Home Medications: Albuterol Neb [Proventil Neb] 2.5 mg IH TID PRN 05/12/16 [History] Albuterol Sulfate [Albuterol Inhaler] 2 puff IH Q4H PRN 05/12/16 [History] Aspirin Enteric Coated [Aspirin EC] 81 mg PO DAILY 05/12/16 [History] Citalopram Hydrobromide [Celexa] 40 mg PO DAILY 05/12/16 [History] Fluticasone Furoate [Arnuity Ellipta] 100 mcg IH DAILY 05/12/16 [History] Lisinopril [Zestril] 5 mg PO DAILY 05/12/16 [History] Multivitamin [Multi-Day Vitamins] 1 each PO DAILY 05/12/16 [History] Simvastatin [Zocor] 20 mg PO HS 05/12/16 [History] Umeclidinium Brm/Vilanterol Tr [Anoro Ellipta 62.5-25 Mcg INH] 1 each IH DAILY 05/12/16 [History] Omeprazole [PriLOSEC] 40 mg PO DAILY #30 cap 05/14/16 [Rx] Ferrous Sulfate [Slow Release Iron] 200 mg PO DAILY #30 tablet.er 09/20/16 [Rx] Allergies/Adverse Reactions: Allergies Penicillins Adverse Reaction (Verified 09/17/16 13:51) Rash Date of admission: 09/19/16 14:13 Primary care physician: Raymon Narayanan MD - Patient Status Disposition: Home, Self-Care Condition: Fair Overall status at discharge: patient is back to baseline - Ambulatory Orders Ambulatory Orders: Consult to Occupational Therapy [CONS] Time Frame: 1 Week, Facility: [facility], Location: Occupational Health Consult to Physical Therapy [CONS] Time Frame: 1 Week, Facility: [facility], Location: [facility] - Discharge Instructions Instructions: Iron Supplements (By mouth), Chronic Hypertension (DC) Follow Up With: Yoan Dudley MD [Non-Partnered Physician] - 10/04/16 2:00 pm Josue Rush MD [Partnered Physician] - 10/06/16 9:00 am Additional Instructions: Vascular Surgeon outpatient visit setup upon discharge. Due to A1C 5.7, discontinue Metformin upon discharge - Diet and Activity Activity: as per physical therapy Hospital course: Mr. Lester is a 76 year old male who came to the ED due to near syncope episode while walking at the [employer] with a history of GI bleed unidentified source, and chronic anemia, COPD. In the ED hgb 8.0 and hct 27.6, baseline hgb 11.6 and hct 34.7. Patient was placed on observation for continuous cardiac telemetry, supplemental O2 with SPO2 monitoring, bilateral carotid Doppler duplex imaging - R 60-79% and L WNL, and follow safety precautions. Patient was transfused with 1 unit prbc in the ED. Patient became hpotensive which responded to IVF. Patient was restarted on Iron replacements and Colace. A1C was 5.7 and upon discharge metformin was D/C'ed. Vascular Surgery was consulted, and they recommended outpatient follow up. - Time Spent with Patient Total time spent providing and/or coordinating discharge services: - Constitutional Vitals: Temp Pulse Resp BP Pulse Ox 98.1 F 78 16 161/76 98 09/20/16 06:48 09/20/16 06:48 09/20/16 06:48 09/20/16 06:48 09/20/16 08:06 General appearance: Present: cooperative, A&O X 3, pleasant, obese, answers questions appropriately - Head Head exam: Present: atraumatic, normocephalic - Respiratory Respiratory exam: Present: CTAB. Absent: accessory muscle use, rales, rhonchi, wheezes - Cardiovascular Cardiovascular exam: Present: RRR, +S1, +S2. Absent: diastolic murmur, gallop, rubs, systolic murmur Additional comments: No Carotid bruits heard bilaterally - GI/Abdominal GI/Abdominal exam: Present: normal bowel sounds, soft, no peritoneal signs. Absent: distended, tenderness - Neurological Exam Neurological exam: Present: alert, oriented X3 - Psychiatric Psychiatric exam: Present: normal affect, normal mood - VTE Documentation of Mechanical Device: Intermittent pneumatic compression device <Donovan Gil - Last Filed: 09/20/16 14:22> Date of Encounter: 09/20/16 Date of admission: 09/19/16 14:13 Primary care physician: Raymon Narayanan MD Hospital course: Mr. Lester is a 76 year old male - Time Spent with Patient Total time spent providing and/or coordinating discharge services: Greater than 30 minutes - Constitutional Vitals: Temp Pulse Resp BP Pulse Ox 97.9 F 96 17 160/81 95 09/20/16 11:29 09/20/16 11:29 09/20/16 11:29 09/20/16 11:29 09/20/16 11:29 - Attending Attestation I examined this patient and my medical decision-making was reviewed with the Resident Physician on 09/20/16. I agree with the documented findings, disposition and treatment plan as described except to the extent set forth below. 76 M Seen and evaluated at bedside He was admitted to observation for evaluation for dizziness and generalized weakness He was hypotensive on arrival, improved with IVF hydration. work up so far shows normal EKG, Carotid stenosis of VINICIUS 69-70% He denies new complains this morning His ECHO was unremarkable for acute events Physical exam: Unremarkable VSS, Orthostats negative, BP now normal, AAOX3, moves all limbs equally, no sensory deficits, not pale, no carotid bruits, chest is clear, HS S1, S2 only, no m/g/r, abdomen is soft and not tender, extremities exam no pedal edema, s/p L TMA. Labs and Imaging reviewed A/P Stable for discharge home , PT/OT has cleared for discharge. Follow up with vascular surgery. Rest of details as in resident physician's documentation
[2016-09-20 11:33] VITALS: BP 160/81
== END 2016-09-20 11:49 | disposition home or self-care (01) | DRG 812 ==
LOC: 2ANU 11:26 → EMEROO 11:26 → 2ANU 16:49
PROVIDERS: ADMIT Internal Medicine Endocrinology, Diabetes & Metabolism; ATTEND Internal Medicine

== ENCOUNTER 2018-08-29 11:55 | Inpatient (IN) ==
[2018-08-29] MEDS ORDERED: Isovue-370 500 ML BOTTLE IVP ONE (11:59)
[2018-08-29 12:05] LABS: Hematocrit 39.6 % (37.5-50.1); Mean Corpuscular HGB Conc 32.8 g/dL (31.6-35.5); Mean Corpuscular Hemoglobin 29.1 pg (28.0-33.3); Mean Corpuscular Volume 88.8 fL (83.0-100.0); Mean Platelet Volume 9.9 fL (9.4-12.4); Platelet Count 221 K/mcL (140-400); Red Blood Count 4.46 M/mcL (4.19-5.50); Red Cell Distribution Width 13.6 % (11.5-14.5); White Blood Count 6.2 K/mcL (4.3-11.1)
[2018-08-29 12:13] LABS: Prothrombin Time 11.5 Seconds (9.4-12.1)
[2018-08-29 12:16] LABS: Activated Partial Thrombo Time 31.3 Seconds (26.0-36.0)
[2018-08-29 12:22] LABS: BUN/Creatinine Ratio 9 (6-26); Blood Urea Nitrogen 10 mg/dL (8-23); Calcium 9.1 mg/dL (8.6-10.3); Carbon Dioxide 27 mEq/L (23-29); Chloride 106 mEq/L (98-107); Glucose 101 mg/dL (70-105); Osmolality,Calculated 285 (280-300); Potassium 4.2 mEq/L (3.5-5.1); Sodium 138 mEq/L (136-145); Troponin I 0.03 ng/mL (< 0.04); eGFR For African Americans > 60 (> 60); eGFR For Non-African Americans > 60 (> 60)
--- NOTE | 2018-08-29 13:21 | Emergency Department Note ---
Disposition Clinical Impression: CVA (cerebral vascular accident) Qualifiers: CVA mechanism: unspecified Qualified Code(s): I63.9 - Cerebral infarction, unspecified Disposition: Admitted As Inpatient Condition: Fair Time of Disposition: 13:23 Neuro HPI - General Chief Complaint: ED Neuro Symptoms/Deficit Stated Complaint: stroke Time Seen by Provider: 08/29/18 11:58 Source: patient, EMS Limitations: no limitations Nursing Notes Reviewed: Yes Vital Signs Reviewed: Yes - History of Present Illness HPI Narrative: 78-year-old male presents emergency department with concerns of CVA. Patient states he was last known normal at 11 PM last night. He woke with symptoms at 3 AM and they have been present since that time. Patient initially states he had left lower facial droop and right lower extremity weakness and right upper extremity weakness. The right upper extremity weakness has improved. He does have slurred speech was has persisted. Patient denies fever, chills, recent trauma. No changes in medications. Glucose was 108 by EMS. Stroke alert was called in the field by EMS. Patient is awake and alert and answering questions appropriately. - Related Data Home Medications: Home Medications Medication Instructions Recorded Confirmed Albuterol Neb [Proventil Neb] 2.5 mg IH TID PRN 05/12/16 08/29/18 Albuterol Sulfate [Proventil 2 puff IH Q4H PRN 05/12/16 08/29/18 Inhaler] Aspirin Enteric Coated [Aspirin EC] 81 mg PO DAILY 05/12/16 08/29/18 Citalopram Hydrobromide [Celexa] 40 mg PO DAILY 05/12/16 08/29/18 Fluticasone Furoate [Arnuity 100 mcg IH DAILY 05/12/16 08/29/18 Ellipta] Lisinopril [Zestril] 5 mg PO DAILY 05/12/16 08/29/18 Simvastatin [Zocor] 20 mg PO HS 05/12/16 08/29/18 Umeclidinium Brm/Vilanterol Tr 1 each IH DAILY 05/12/16 08/29/18 [Anoro Ellipta 62.5-25 Mcg INH] Previous Rx's Medication Instructions Recorded Omeprazole [PriLOSEC] 40 mg PO DAILY #30 cap 05/14/16 Ferrous Sulfate 325 mg PO DAILY #30 tablet 08/14/17 Allergies/Adverse Reactions: Allergies Allergy/AdvReac Type Severity Reaction Status Date / Time Penicillins AdvReac Rash Verified 02/28/18 12:27 All systems ED: reviewed and negative except as stated. Review of Systems: As Per HPI Past Medical History - Past Medical History Attestation: Yes The following information was validated with the patient. Source: patient Medical history: Reports: COPD, hyperlipidemia, hypertension Surgical history: Reports: orthopedic, other, other Psychiatric history: Reports: no psych history - Social History Smoking Status: Never smoker Smokeless Tobacco Status: No Alcohol use: Reports: none Drug use: Reports: none Physical Exam General: Alert and in no acute distress Skin: Warm, dry, intact Head: Normocephalic and atraumatic Neck: Supple, trachea midline and no tenderness Cardiovascular: RRR, no murmur, normal perfusion Respiratory: CTAB, no wheezing, cough, or respiratory distress Musculoskeletal: Normal strength, no tenderness, swelling or deformity GI: Soft, nontender, nondistended. Bowel sounds present Neuro: A&O to person, place, time and situation. Left lower facial droop. No tongue deviation. Extraocular muscles intact. No sensation loss to the face. Patient has 4 out of 5 weakness to the right lower extremity compared to left. Equal strength in bilateral upper extremity. Finger to nose testing and [id number] testing intact. Psychiatric: cooperative and appropriate mood and affect. - General Limitations: no limitations General appearance: alert Course Vital Signs Temperature 97.7 F 08/29/18 12:07 Pulse Rate 67 08/29/18 12:07 Respiratory Rate 16 08/29/18 12:07 Blood Pressure 181/91 08/29/18 12:07 O2 Sat by Pulse Oximetry 98 08/29/18 12:07 Temperature 98.6 F 08/30/18 11:00 Pulse Rate 96 08/30/18 11:00 Respiratory Rate 14 08/30/18 11:00 Blood Pressure 147/73 08/30/18 11:00 O2 Sat by Pulse Oximetry 94 08/30/18 11:00 Oxygen Delivery Oxygen Delivery Room Air Neuro Symptoms/Deficit - MDM Narrative Medical decision making narrative: Stroke alert was initiated upon arrival and patient went to CT which did not show evidence of acute fracture or intracranial hemorrhage. CTA of the head and neck do not show evidence of severe stenosis or thrombosis of proximal vessels. I spoke with the [facility] neurologists who evaluated at bedside via tele-neurology. Neurology recommended patient was safe to stay at [facility] for MRI and further workup. - Medical Records Medical records reviewed: Yes I reviewed the patient's medical records. - Lab Data Lab results reviewed: Yes I reviewed the patient's lab results. Result diagrams: 08/29/18 11:57 08/29/18 11:57 Lab Results 08/29/18 08/29/18 08/29/18 Range/Units 11:57 11:57 11:57 WBC 6.2 (4.3-11.1) K/mcL RBC 4.46 (4.19-5.50) M/mcL Hgb 13.0 (12.9-16.9) g/dL Hct 39.6 (37.5-50.1) % MCV 88.8 (83.0-100.0) fL MCH 29.1 (28.0-33.3) pg MCHC 32.8 (31.6-35.5) g/dL RDW 13.6 (11.5-14.5) % Plt Count 221 (140-400) K/mcL MPV 9.9 (9.4-12.4) fL PT 11.5 (9.4-12.1) Seconds INR 1.0 APTT 31.3 (26.0-36.0) Seconds Sodium 138 (136-145) mEq/L Potassium 4.2 (3.5-5.1) mEq/L Chloride 106 (98-107) mEq/L Carbon Dioxide 27 (23-29) mEq/L BUN 10 (8-23) mg/dL Creatinine 1.11 (0.70-1.30) mg/dL Est GFR ( Amer) > 60 (> 60) Est GFR (Non-Af Amer) > 60 (> 60) BUN/Creatinine Ratio 9 (6-26) Glucose 101 (70-105) mg/dL Calculated Osmolality 285 (280-300) Calcium 9.1 (8.6-10.3) mg/dL Troponin I 0.03 (< 0.04) ng/mL Triglycerides (< 150) mg/dL Cholesterol (< 200) mg/dL LDL Cholesterol, Calc (0-99) mg/dL VLDL Cholesterol, Calc (< 31) mg/dL HDL Cholesterol (40-59) mg/dL Cholesterol/HDL Ratio (0-4.9) 08/30/18 Range/Units 04:06 WBC (4.3-11.1) K/mcL RBC (4.19-5.50) M/mcL Hgb (12.9-16.9) g/dL Hct (37.5-50.1) % MCV (83.0-100.0) fL MCH (28.0-33.3) pg MCHC (31.6-35.5) g/dL RDW (11.5-14.5) % Plt Count (140-400) K/mcL MPV (9.4-12.4) fL PT (9.4-12.1) Seconds INR APTT (26.0-36.0) Seconds Sodium (136-145) mEq/L Potassium (3.5-5.1) mEq/L Chloride (98-107) mEq/L Carbon Dioxide (23-29) mEq/L BUN (8-23) mg/dL Creatinine (0.70-1.30) mg/dL Est GFR ( Amer) (> 60) Est GFR (Non-Af Amer) (> 60) BUN/Creatinine Ratio (6-26) Glucose (70-105) mg/dL Calculated Osmolality (280-300) Calcium (8.6-10.3) mg/dL Troponin I (< 0.04) ng/mL Triglycerides 122 (< 150) mg/dL Cholesterol 165 (< 200) mg/dL LDL Cholesterol, Calc 88 (0-99) mg/dL VLDL Cholesterol, Calc 24 (< 31) mg/dL HDL Cholesterol 53 (40-59) mg/dL Cholesterol/HDL Ratio 3.1 (0-4.9) - Radiology Data Radiology results reviewed: Yes I reviewed the patient's radiology results. - EKG Data EKG attestation: Yes I reviewed and interpreted this EKG. EKG results narrative: Sinus bradycardia with a rate of 57 with multiple PACs without evidence of STEMI or other dysrhythmia. QTC 411, QRS of 95 NIH Stroke Scale - Level of Consciousness LOC: Alert - LOC Questions LOC Questions: Answers both correctly - LOC Commands LOC Commands: Performs both correctly - Best Gaze Best Gaze: Normal - Visual Visual: No visual loss - Facial Palsy Facial Palsy: Partial, total, or near-total paralysis of lower face - Motor Arms Motor Arm-Left: No drift for 10 seconds Motor Arm-Right: No drift for 10 seconds - Motor Legs Motor Leg-Left: No drift for 5 seconds Motor Leg-Right: No drift for 5 seconds - Limb Ataxia Limb Ataxia: Normal, No Ataxia - Sensory Sensory: Normal - Best Language Best Language: No aphasia - Dysarthria Dysarthria: Normal - Extinction and Inattention Extinction and Inattention: Normal - NIHSS Total Score NIHSS Total Score: 2 TPA Checklist - LKW: 3-4.5 hrs Add. Warnings/Precautions Patient/family understanding: The patient/family members have been counseled and understood the risk, benefit, and alternatives of treatment. Critical Care Time Critical Care Time: Yes Total Critical Care Time: 45 Attestation: The high probability of a clinically significant, sudden or life threatening deterioration of the neurologic system(s) required my full and direct attention, intervention and personal management. The aggregate critical care time was 45 minutes. This time is in addition to time spent performing reported procedures but includes the following: x Data Review and interpretation x Patient assessment and monitoring of vital signs x Documentation x Medication orders and management
[2018-08-29] MEDS ORDERED: Aspirin 81 MG TAB.CHEW PO ONE (13:28)
[2018-08-29] MEDS ORDERED: Acetaminophen 325 MG TABLET PO PRN (13:30)
[2018-08-29] MEDS ORDERED: Ondansetron 4 MG/2 ML VIAL IVP PRN (13:30)
[2018-08-29] MEDS ORDERED: Naloxone 0.4 MG/ML INJ IVP PRN (13:30)
[2018-08-29] MEDS ORDERED: *HR* HYDROcodone/Acet 5/325 mg TABLET PO PRN (13:30)
[2018-08-29] MEDS ORDERED: Albuterol 2.5 MG/3 ML NEBULIZER IH PRN (14:10)
--- NOTE | 2018-08-29 15:18 | Internal Med History&Physical ---
Date of Encounter: 08/29/18 Time of Encounter: 14:30 Internal Medicine - H&P: HPI Chief complaint: Left facial droop and Rt side weakness Admitted From: Emergency Dept Plans for Post Hospital Care: Home History of present illness: Mr. Lester is a 78 year old male with known PMH of COPD, HTN, HLD and multiple TIA pt was brought into ER by family stating he noticed Left facial droop this morning, along with Rt side weakness. He woke up with Left facial droop, some slurred speech due to facial droop and later he noticed Rt upper and lower extremity weakness. When he came to ER this morning at 11 AM , he was out of window for tPA treatment. He still has Left facial droop and mild slurred speech. He failed bed side swallow eval in the ER. He denied any CP / SOB. Denied any fall / trauma. 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,toe amputation - Social History Smoking Status: Never smoker Smokeless Tobacco Status: No Alcohol use: none Drug use: none - Family History Brother Family Member Ethnicity: Non- Living Status: Hx Family Cancer: Yes Hx Family Endocrine Disorder: Yes (DM) Father Family Member Ethnicity: Non- Living Status: Hx Family Cardiac Disorders: Yes Hx Family Respiratory Disorders: Yes (Asthma) Hx Family Cancer: No Hx Family GI Disorders: No Hx Family Endocrine Disorder: No Hx Family Neuromuscular Disorders: No Hx Family Neurologic Disorders: No Hx Family HEENT Disorders: No Hx Family Autoimmune Disorders: No Mother Family Member Ethnicity: Non- Living Status: Hx Family Cardiac Disorders: No Hx Family Respiratory Disorders: No Hx Family Cancer: No Hx Family GI Disorders: No Hx Family Endocrine Disorder: No Hx Family Neuromuscular Disorders: No Hx Family Neurologic Disorders: No Hx Family HEENT Disorders: No Hx Family Autoimmune Disorders: No Internal Medicine - H&P: Meds Albuterol Neb [Proventil Neb] 2.5 mg IH TID PRN 05/12/16 [History] Albuterol Sulfate [Proventil Inhaler] 2 puff IH Q4H PRN 05/12/16 [History] Aspirin Enteric Coated [Aspirin EC] 81 mg PO DAILY 05/12/16 [History] Citalopram Hydrobromide [Celexa] 40 mg PO DAILY 05/12/16 [History] Fluticasone Furoate [Arnuity Ellipta] 100 mcg IH DAILY 05/12/16 [History] Lisinopril [Zestril] 5 mg PO DAILY 05/12/16 [History] Simvastatin [Zocor] 20 mg PO HS 05/12/16 [History] Umeclidinium Brm/Vilanterol Tr [Anoro Ellipta 62.5-25 Mcg INH] 1 each IH DAILY 05/12/16 [History] Omeprazole [PriLOSEC] 40 mg PO DAILY #30 cap 05/14/16 [Rx] Ferrous Sulfate 325 mg PO DAILY #30 tablet 09/20/16 [Rx] Allergy/AdvReac Type Severity Reaction Status Date / Time Penicillins AdvReac Rash Verified 02/28/18 12:27 All Systems PM: A 10-system review of systems was performed and is negative for pertinent findings except as documented above in the HPI. Review of systems: All the systems are reviewed everything is benign except the systems and symptoms I mentioned in the history of present illness - Constitutional Vitals: Temp Pulse Resp BP Pulse Ox 97.7 F 89 16 149/77 94 08/29/18 12:07 08/29/18 12:56 08/29/18 13:49 08/29/18 13:49 08/29/18 14:26 General appearance: Present: cooperative, A&O X 3, no acute distress, answers questions appropriately Exam: Looks weak and lethargic - Head Head exam: Present: atraumatic Additional comments: Does have left facial droop - Neck Neck exam general surgery: Present: supple - Respiratory Respiratory exam: Present: decreased breath sounds. Absent: rales, respiratory distress, rhonchi, wheezes - Cardiovascular Cardiovascular exam: Present: RRR, +S1, +S2. Absent: tachycardia - GI/Abdominal GI/Abdominal exam: Present: normal bowel sounds, soft. Absent: rebound, rigid, tenderness - Extremities Exam Extremities exam: Present: normal inspection. Absent: calf tenderness, tenderne ss - Back Exam Back exam: Absent: CVA tenderness (L), CVA tenderness (R) - Neurological Exam Neurological exam: Present: alert, CN II-XII intact (Except left facial droop), motor sensory deficit (Rt UE and LE weakness), oriented X3, speech deficit. Absent: strengths equal and symetr throughout, pronater drift, facial droop - Psychiatric Psychiatric exam: Present: normal affect, normal mood - Skin Skin exam: Absent: rash Internal Med - H&P Results - Labs CBC & Chem 7: 08/29/18 11:57 08/29/18 11:57 Labs: Short CBC 08/29/18 Range/Units 11:57 WBC 6.2 (4.3-11.1) K/mcL Hgb 13.0 (12.9-16.9) g/dL Hct 39.6 (37.5-50.1) % Plt Count 221 (140-400) K/mcL BMP 08/29/18 11:57 Sodium 138 Potassium 4.2 Chloride 106 Carbon Dioxide 27 BUN 10 Creatinine 1.11 Glucose 101 Calcium 9.1 Cardiac Enzymes 08/29/18 Range/Units 11:57 Troponin I 0.03 (< 0.04) ng/mL - Impressions ITS Impressions Head CT 08/29/18 11:59 IMPRESSION: No acute intracranial hemorrhage, mass effect, or midline shift. Ventricles are prominent in size but similar to the prior study. Chronic microvascular ischemic changes. D/ /29/2018 12:18:46 Bebo Krueger / chastity Interpreting Provider: Bebo Krueger Head CTA 08/29/18 11:59 IMPRESSION: No high-grade stenosis or focal occlusion involving the intracranial or cervical vasculature. No evidence of acute dissection. No evidence of aneurysm. D/ : / 08/29/2018 12:46:32 Avery Gilbert MD / jacey Interpreting Provider: Avery Gilbert MD Neck CTA 08/29/18 11:59 IMPRESSION: No high-grade stenosis or focal occlusion involving the intracranial or cervical vasculature. No evidence of acute dissection. No evidence of aneurysm. D/ /29/2018 12:46:32 Avery Gilbert MD / jacey Interpreting Provider: Avery Gilbert MD - Assessment and Plan (1) CVA (cerebral vascular accident) Current Visit: Yes Status: Acute Assessment and plan: Place the pt into Tele for observation His symptoms are concerning for acute CVA NPO for now, until speech eval done Will do neuro checks Q 4 hour reviewed EKG by myself- showed sinus rhythm, with no acute ST , T changes reviewed CT of the head no acute intracranial abnormality noticed CTA of Head and Neck - showed no stenosis / no occlusion noticed He failed on ASA , so will start him on Plavix will check lipid profile in the morning Started him on Lipitor 80mg will get MRI of the Head Will check carotid Doppler bilaterally and echocardiogram Consulted Neuro for further eval Qualifiers: CVA mechanism: unspecified Qualified Code(s): I63.9 - Cerebral infarction, unspecified (2) COPD (chronic obstructive pulmonary disease) Current Visit: No Status: Chronic Assessment and plan: Not in exacerbation resumed home inhalers Qualifiers: COPD type: unspecified COPD Qualified Code(s): J44.9 - Chronic obstructive pulmonary disease, unspecified (3) HLD (hyperlipidemia) Current Visit: No Status: Chronic Assessment and plan: On Statin Qualifiers: Hyperlipidemia type: pure hypercholesterolemia Qualified Code(s): E78.00 - Pure hypercholesterolemia, unspecified; E78.0 - Pure hypercholesterolemia (4) HTN (hypertension) Current Visit: No Status: Chronic Assessment and plan: Continue home medications Qualifiers: Hypertension type: essential hypertension Qualified Code(s): I10 - Essential (primary) hypertension (5) DVT prophylaxis Current Visit: No Status: Acute Assessment and plan: on Heparin SQ - Time Spent With Patient Total time spent is greater than 50% in coordination of care (as documented) at patient's floor/unit and/or counseling patient:
--- NOTE | 2018-08-29 15:33 | Neurology - Consult Note ---
<Manuel Shepherd [place] - Last Filed: 08/29/18 16:40> Date of Encounter: 08/29/18 Time of Encounter: 15:32 Assessment and Plan (1) CVA (cerebral vascular accident) Current Visit: Yes Status: Acute Patient presented due to acute onset left facial droop and dysarthria this morning Head CT, and CTA, neck CTA negative for acute abnormality Full dose aspirin was given, high-dose simvastatin started MRI brain, echocardiogram, carotid Dopplers pending The patient does have a history of previous small strokes and is on aspirin and low-dose simvastatin at home His symptoms have not changed since admission, no mental status changes, no weakness or sensory deficits Left facial droop and dysarthria confirmed on exam, suspicion for acute CVA is high Given preservation of left eyebrow this is more likely central as opposed to peripheral lesion Given failure of outpatient aspirin therapy he was transitioned to Plavix by hospitalist Agree with transition to Plavix, continue simvastatin, agree with MRI brain and echocardiogram We will continue to follow imaging and make further recommendations on medical management Further recommendations per Dr. Thrasher Qualifiers: CVA mechanism: unspecified Qualified Code(s): I63.9 - Cerebral infarction, unspecified (2) History of CVA (cerebrovascular accident) without residual deficits Current Visit: Yes Status: Acute History of Present Illness Chief complaint: Stroke like symptoms HPI: Mr. Lester is a 78 year old male with past medical history of COPD, hypertension, traumatic amputation of left forefoot, hyperlipidemia, and multiple previous small CVAs. At home he is on aspirin and simvastatin. He wo ke up in the middle of the night and found he was not able to ambulate to the bathroom and urinated on himself. He woke up this morning, was able to make coffee and feed the dogs and was not having any issues when his family member noticed he had a left-sided facial droop and some slurred speech. Other than the facial droop and slurred speech he did not have any weakness, sensory deficits, motor deficits, visual changes, headache or lightheadedness, fever or chills, chest pain or shortness of breath. He did present to the emergency department around 11 AM at which point he was out of the window for TPA treatment. Full dose aspirin was given. Noncontrast CT of the head was performed which showed no acute abnormality. [facility] neurology telemedicine consultation was utilized who recommended CTA of the head and neck and admission for neurology evaluation. CTA of the head and neck showed no acute abnormality. The patient was admitted to the hospitalist service who ordered MRI of the bra in, echocardiogram, carotid Dopplers, PT/OT/speech evaluation, and started high- dose simvastatin and clopidogrel. On my evaluation the patient complains of continued left-sided facial droop and slurred speech but otherwise denies any acute complaints. Family is in the room who reports that other than the facial droop and slurred speech he is completely at baseline. 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,toe amputation - Social History Smoking Status: Never smoker Smokeless Tobacco Status: No Alcohol use: none Drug use: none - Family History Brother Family Member Ethnicity: Non- Living Status: Hx Family Cancer: Yes Hx Family Endocrine Disorder: Yes (DM) Father Family Member Ethnicity: Non- Living Status: Hx Family Cardiac Disorders: Yes Hx Family Respiratory Disorders: Yes (Asthma) Hx Family Cancer: No Hx Family GI Disorders: No Hx Family Endocrine Disorder: No Hx Family Neuromuscular Disorders: No Hx Family Neurologic Disorders: No Hx Family HEENT Disorders: No Hx Family Autoimmune Disorders: No Mother Family Member Ethnicity: Non- Living Status: Hx Family Cardiac Disorders: No Hx Family Respiratory Disorders: No Hx Family Cancer: No Hx Family GI Disorders: No Hx Family Endocrine Disorder: No Hx Family Neuromuscular Disorders: No Hx Family Neurologic Disorders: No Hx Family HEENT Disorders: No Hx Family Autoimmune Disorders: No Medications and Allergies Albuterol Neb [Proventil Neb] 2.5 mg IH TID PRN 05/12/16 [History] Albuterol Sulfate [Proventil Inhaler] 2 puff IH Q4H PRN 05/12/16 [History] Aspirin Enteric Coated [Aspirin EC] 81 mg PO DAILY 05/12/16 [History] Citalopram Hydrobromide [Celexa] 40 mg PO DAILY 05/12/16 [History] Fluticasone Furoate [Arnuity Ellipta] 100 mcg IH DAILY 05/12/16 [History] Lisinopril [Zestril] 5 mg PO DAILY 05/12/16 [History] Simvastatin [Zocor] 20 mg PO HS 05/12/16 [History] Umeclidinium Brm/Vilanterol Tr [Anoro Ellipta 62.5-25 Mcg INH] 1 each IH DAILY 05/12/16 [History] Omeprazole [PriLOSEC] 40 mg PO DAILY #30 cap 05/14/16 [Rx] Ferrous Sulfate 325 mg PO DAILY #30 tablet 09/20/16 [Rx] Allergy/AdvReac Type Severity Reaction Status Date / Time Penicillins AdvReac Rash Verified 02/28/18 12:27 All Systems: The remainder of the systems were reviewed and are negative Review of Systems: 10 point review of systems performed and negative except as otherwise documented in history of present illness. Physical Examination - Vital Signs Vital Signs: Initial Vital Signs Temp Pulse Resp BP Pulse Ox 97.7 F 67 16 181/91 98 08/29/18 12:07 08/29/18 12:07 08/29/18 12:07 08/29/18 12:07 08/29/18 12:07 - Exam Exam: General Examination: *CONSTITUTIONAL: Alert and oriented x3, no acute distress *GENERAL APPEARANCE OF PATIENT appears healthy and well groomed *EYES: pupils equal, round, reactive to light and accommodation, conjunctiva clear without masses or ulcerations *CARDIOVASCULAR: RRR, S1, S2, no mumurs, rubs, or gallops, no peripheral edema *GAIT AND STATION: Patient is not able to stand on his own due to generalized weakness and arthritis which is his baseline, gait and Romberg not tested *ASSESSMENT OF MUSCLE STRENGTH IN THE UPPER AND LOWER EXTREMITIES bilateral deltoid, bicep, tricep, health insurance adjuster strength, hip flexors 5/5 right plantar flexion and dorsiflexion 5/5 left plantar flexion and dorsiflexion not tested due to missing forefoot however quadriceps and hamstring strength 5/5 on left *MUSCLE TONE IN THE UPPER AND LOWER EXTREMITIES normal. No abnormal movements, fasciculations or atrophy identified. Neurological: *ORIENTATION to person, situation, time and place *LANGUAGE AND FUNCTION mild dysarthria noted *ATTENTION AND CONCENTRATION are normal *FUND OF KNOWLEDGE aware of current events, past history, vocabulary *MENTAL attention span and concentration normal. *CN II visual cherry intact *CN III,IV, PERRLA patient had difficulty tracking to the right however specific nystagmus was not noted *CN V shows normal sensation and jaw opens symmetrically. *CN VII shows normal facial muscle movement on the right, left lower facial droop present, left eyebrow normal *CN VIII shows no significant hearing loss on exam *CN IX-X palate elevated symmetrically *CN XI normal strength in the sternocleidomastoid muscles, symmetrical shoulder shrugging. *CN XII tongue protruded in the midline but the patient was not able to fully protract tongue past the lips, tongue deviation equal bilaterally ?*SENSORY EXAMINATION light touch intact *REFLEXES: deep tendon reflexes were normal and symmetrical , grade 2/4 diffusely *CEREBELLAR TESTING slow finger to nose *PAIN LEVEL 0/10 Results - Laboratory Findings CBC and BMP: 08/29/18 11:57 08/29/18 11:57 Consult Discharge Plan - Plan Referrals: Yoan Dudley MD [Primary Care Provider] - <Demario Thrasher - Last Filed: 08/29/18 19:19> Date of Encounter: 08/29/18 Assessment and Plan (1) CVA (cerebral vascular accident) Current Visit: Yes Status: Acute Patient has a very dense left facial droop. And he seems to have some decreased wrinkles on the left forehead at rest. He also has normal strength of both upper and lower extremities. Although brainstem infarct is certainly within the differential, list also consider the possibility of a left facial palsy. CTA scan of the head and neck are negative. Stroke workup is yet pending including MRI scan of the brain. Further recommendations will be made pending the outcome of the MRI scan. I will follow-up with him in the morning. Qualifiers: CVA mechanism: unspecified Qualified Code(s): I63.9 - Cerebral infarction, unspecified History of Present Illness HPI: Chart was reviewed, the patient was seen and examined independently. Case was discussed with Dr. Shepherd. I agree with the history of present illness as documented above. Patient denies any pain in the left mastoid region. Denies numbness tingling or weakness of the face arms or legs. All Systems: The remainder of the systems were reviewed and are negative Review of Systems: The balance of the systems review is negative. Physical Examination - Vital Signs Vital Signs: Initial Vital Signs Temp Pulse Resp BP Pulse Ox 97.7 F 67 16 181/91 98 08/29/18 12:07 08/29/18 12:07 08/29/18 12:07 08/29/18 12:07 08/29/18 12:07 - Exam Exam: General Examination: *CONSTITUTIONAL: normal *GENERAL APPEARANCE OF PATIENT appears healthy and well groomed *EYES: pupils equal, round, reactive to light and accommodation, conjunctiva clear without masses or ulcerations, fundi normal. *CARDIOVASCULAR no peripheral edema, distal temperature normal, dorsalis pedis pulses normal. Refer to vital signs Musculoskeletal: *GAIT AND STATION normal, with normal Romberg testing, no abnormalities such as broad base gait or spasticity *ASSESSMENT OF MUSCLE STRENGTH IN THE UPPER AND LOWER EXTREMITIES deltoid, bicep, tricep, health insurance adjuster strength, hip flexors ,anterior tibialis, dorsoflexion of the foot normal. *MUSCLE TONE IN THE UPPER AND LOWER EXTREMITIES normal. No abnormal movements, fasciculations or atrophy identified. Neurological: *ORIENTATION to time and place *RECURRENT AND REMOTE MEMORY intact *ATTENTION AND CONCENTRATION are normal *LANGUAGE FUNCTION no significant aphasia or dysarthia was noted. *FUND OF KNOWLEDGE aware of current events, past history, vocabulary *MENTAL attention span and concentration normal. *CN II optic fundi were normal, no papilledema noted. *CN III,IV, PERRLA extraocular eye movements were full, no nystagmus and no ptosis noted. *CN V shows normal sensation and jaw opens symmetrically. *CN VII shows normal a very dense left facial droop. The resting tone of his face seems to have some decreased furrowing of the left forehead. However he can raise the eyebrows symmetrically. *CN VIII shows no significant hearing loss on examination in the office. *CN IX,,X palate elevated symmetrically and normal gag reflex was noted. *CN XI normal strength in the sternocleidomastoid muscles, symmetrical shoulder shrugging. *CN XII tongue protruded in the midline, with normal strength and movement. *SENSORY EXAMINATION pinprick sensation intact, and light touch(vibration sense). *REFLEXES: deep tendon reflexes were normal and symmetrical , grade 2/4 diffusely, no pathological reflexes were noted. *CEREBELLAR TESTING normal finger to nose, heel/knee/patel, and tandem walk. *PAIN LEVEL Results - Laboratory Findings CBC and BMP: 08/29/18 11:57 08/29/18 11:57
[2018-08-29] MEDS: *HR* Heparin 5,000 UNIT/ML VIAL SQ SCH (16:22)
--- NOTE | 2018-08-29 21:31 | Event Note ---
Date of Encounter: 08/29/18 Time of Encounter: 21:28 Notified by nurse of patients MRI Brain results showing acute infarct anterior limb internal capsule on the right. Assessed patient at bedside, same deficits persist as previously documented but no new deficits noted. Patient states he feels his deficits have improved since presentation. Called subscription agent neurology Dr Thrasher to provide update including MRI results, no new recommendations at this time.
[2018-08-30 05:08] LABS: Chol/HDL Ratio 3.1 (0-4.9)
[2018-08-30] MEDS: *HR* Heparin 5,000 UNIT/ML VIAL SQ SCH ×2 (05:17→17:48)
[2018-08-30] MEDS ORDERED: Perflutren Lipid Microsphere 1.3 ML in 0.9 % Sodium Chloride 8.7 ML IVP ONE (08:24)
[2018-08-30] MEDS: FLUTICASONE FUROATE 100 MCG IH SCH (11:31)
--- NOTE | 2018-08-30 14:15 | Neurology Progress Note ---
<[employer] - Last Filed: 08/30/18 14:12> Date of Encounter: 08/30/18 Time of Encounter: 14:12 Assessment and Plan (1) CVA (cerebral vascular accident) Current Visit: Yes Status: Acute The patient was seen in follow-up today for an acute CVA in the right internal capsule. CVA resulted in left facial droop, slurred speech and some mild left arm paresthesias He has had no significant change in condition overnight. The left facial droop persists but his speech is somewhat improving. No new deficits identified on the neurological exam. Echocardiogram was nondiagnostic for valvular dysfunction or PFO with an EF of 60% CT angiogram/neck negative for acute abnormality of flow limiting stenosis Patient is started been transitioned from aspirin to Plavix; continue simvastatin No further recommendations from neurology's perspective Continuous medical and supportive care We will sign off at this time. Please call should any urgent needs arise Qualifiers: CVA mechanism: unspecified Qualified Code(s): I63.9 - Cerebral infarction, unspecified Subjective Principal diagnosis: Acute CVA in the right internal capsule Interval history: Patient seen in follow-up for an acute CVA in the right internal capsule. He presented with acute onset of left facial droop and dysarthria as well as some paresthesias to the left face and left arm. Clinically, he remained stable overnight without any further neurological deficits. Since admission he has had a carotid duplex scan which reveals nonstenotic plaque. The echocardiogram revealed an EF of 60% with mild LVEDD, no valvular dysfunction identified and nondiagnostic PFO. While rounding this afternoon to discuss aggressive risk factor modification and medication compliance. Further, I noted that he would need to follow up outpatient with neurology. Objective - Constitutional Vitals: Temp Pulse Resp BP Pulse Ox 98.6 F 96 14 147/73 94 08/30/18 11:00 08/30/18 11:00 08/30/18 11:00 08/30/18 11:00 08/30/18 11:00 Exam: General Examination: *CONSTITUTIONAL: Alert and oriented x3, no acute distress *GENERAL APPEARANCE OF PATIENT appears healthy and well groomed *EYES: pupils equal, round, reactive to light and accommodation, conjunctiva clear without masses or ulcerations *CARDIOVASCULAR: RRR, no peripheral edema *GAIT AND STATION: Patient is not able to stand on his own due to generalized weakness and arthritis which is his baseline, gait and Romberg not tested *ASSESSMENT OF MUSCLE STRENGTH IN THE UPPER AND LOWER EXTREMITIES bilateral deltoid, bicep, tricep, capacity analyst strength, hip flexors 5/5 right plantar flexion and dorsiflexion 5/5 left plantar flexion and dorsiflexion not tested due to missing forefoot however quadriceps and hamstring strength 5/5 on left *MUSCLE TONE IN THE UPPER AND LOWER EXTREMITIES normal. No abnormal movements, fasciculations or atrophy identified. Neurological: *ORIENTATION to person, situation, time and place *LANGUAGE AND FUNCTION mild dysarthria noted *ATTENTION AND CONCENTRATION are normal *FUND OF KNOWLEDGE aware of current events, past history, vocabulary *MENTAL attention span and concentration normal. *CN II visual cherry intact *CN III,IV, PERRLA patient had difficulty tracking to the right however specific nystagmus was not noted *CN V shows normal sensation and jaw opens symmetrically. *CN VII shows normal facial muscle movement on the right, left lower facial droop present, left eyebrow normal *CN VIII shows no significant hearing loss on exam *CN IX-X palate elevated symmetrically *CN XI normal strength in the sternocleidomastoid muscles, symmetrical shoulder shrugging. *CN XII tongue protruded in the midline but the patient was not able to fully pr otract tongue past the lips, tongue deviation equal bilaterally ?*SENSORY EXAMINATION light touch intact *REFLEXES: deep tendon reflexes were normal and symmetrical , grade 2/4 diffusely *CEREBELLAR TESTING slow finger to nose *PAIN LEVEL 0/10 Results - Laboratory Findings CBC and BMP: 08/29/18 11:57 08/29/18 11:57 Consult Discharge Plan - Plan Referrals: Yoan Dudley MD [Primary Care Provider] - (Appointment has been requested. Our offices will call with an appointment.) <Demario Thrasher - Last Filed: 08/30/18 16:01> Date of Encounter: 08/30/18 Assessment and Plan (1) CVA (cerebral vascular accident) Current Visit: Yes Status: Acute I have personally performed a [id number] assessment of the patient and have reviewed the PA/LONG DISTANCE OPERATOR note. My impressions are as follows: The case was discussed with the DIVERSIFIED CROPS FARMWORKER. I agree with his assessment and plan as outlined above. Time spent with patient today was 25 minutes of which greater than 50% of that was [id number] contact which consisted of counseling and examination clinical assessment and coordinating care. We will reevaluate your request. Qualifiers: CVA mechanism: unspecified Qualified Code(s): I63.9 - Cerebral infarction, unspecified Subjective Interval history: Chart was reviewed, the patient was seen and examined independently. The case was discussed with the DIVERSIFIED CROPS FARMWORKER. I agree with his documentation of the history of present illness as stated above. MRI scan of the brain does reveal an acute infarct in the posterior limb of the right internal capsule. Echocardiogram was negative for an embolic source. Carotid Doppler reveals nonstenotic plaquing. Patient today is awake alert oriented and in no acute distress. Objective - Constitutional Vitals: Temp Pulse Resp BP Pulse Ox 97.8 F 97 16 138/80 96 08/30/18 15:13 08/30/18 15:13 08/30/18 15:13 08/30/18 15:13 08/30/18 15:13 Exam: I have personally performed a [id number] assessment of the patient and have reviewed the PA/LONG DISTANCE OPERATOR note. My impressions are as follows: I agree with the documentation of the neurologic examination as outlined above by the DIVERSIFIED CROPS FARMWORKER. Results - Laboratory Findings CBC and BMP: 08/29/18 11:57 08/29/18 11:57
--- NOTE | 2018-08-30 15:30 | Electrocardiograph Report ---
[address] [place], [place] [address] Test Date: 2018-08-29 Pat Name: Harmeet Lester Department: [id number] Room: 3B65 Gender: M Foster Care Social Worker: : 1940 Requested By: Laz Messer Order Number: [id number] Reading MD: Monica Herrera Measurements Intervals [place] Rate: 57 P: 56 MA: 154 QRS: 61 QRSD: 95 T: 37 QT: 422 QTc: 411 Interpretive Statements Sinus rhythm with supraventricular trigeminy with aberrancy Minimal ST elevation, anterior leads Electronically Signed On 08-30-2018 15:28:54 EDT by Monica Herrera
--- NOTE | 2018-08-30 15:41 | Internal Med Progress Note ---
Hospitalist Progress Note - Encounter Date of Encounter: 08/30/18 Time of Encounter: 15:38 - Subjective Interval History: Pt was seen and examined at bed side. Pt stated he is feeling better today.. speech is better now. Still has some facial droop and Rt side weakness. - Exam Vitals: Temp Pulse Resp BP Pulse Ox 97.8 F 97 16 138/80 96 08/30/18 15:13 08/30/18 15:13 08/30/18 15:13 08/30/18 15:13 08/30/18 15:13 Exam: Gen: Alert, awake, Oriented to time,place and person Chest: Diminished breath sounds B/L, No wheezing, No crackles, No rales Heart: S1S2+ RRR No murmurs Abd: Soft, NT, BS +, No organomegaly Ext: No edema, pulses are palpable, No calf tenderness Neuro : Left facial droop, Rt UE / LE 4/5 motor strength Skin: No rash. 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 Not a candidate fot tPA Since he failed on ASA, switched to Plavix Cont Lipitor 80mg Reviewed Carotid doppler -Nonstenotic plaque is the only finding Echo showed Preserved LVEF, No PFO Appreciate Neuro recommendations PT / OT eval May need ECF placement Patient does need to stay in the hospital more than 2 midnights due to his complex medical problems. So we will change him to full admission today. I did review my H & P including HPI, PMH, PSH, FH, SH, and ROS no changes noticed (2) COPD (chronic obstructive pulmonary disease) Current Visit: No Status: Chronic Assessment and Plan: Not in exacerbation cont home inhalers (3) HLD (hyperlipidemia) Current Visit: No Status: Chronic Assessment and Plan: On Statin (4) HTN (hypertension) Current Visit: No Status: Chronic Assessment and Plan: stable BP Continue home medications (5) DVT prophylaxis Current Visit: No Status: Acute Assessment and Plan: on Heparin SQ - Time Spent with Patient Total time spent is greater than 50% in coordination of care (as documented) at patient's floor/unit and/or counseling patient: Internal Medicine: Result - Labs CBC & Chem 7: 08/29/18 11:57 08/29/18 11:57 - ABG Interpretation ABG results: PT/INR, D-dimer PT 11.5 Seconds (9.4-12.1) 08/29/18 11:57 - Impressions Impressions Head CT 08/29/18 11:59 IMPRESSION: No acute intracranial hemorrhage, mass effect, or midline shift. Ventricles are prominent in size but similar to the prior study. Chronic microvascular ischemic changes. Findings discussed with Dr. Burns by Dr. Krueger on 08/29/2018 at 1218 hours. D/ : / 08/29/2018 12:18:46 Bebo Krueger / chastity Interpreting Provider: Bebo Krueger Head CTA 08/29/18 11:59 IMPRESSION: No high-grade stenosis or focal occlusion involving intracranial or cervical vasculature. No evidence of acute dissection. No evidence of aneurysm. D/ / 08/29/2018 12:46:32 Avery Gilbert MD / jacey Interpreting Provider: Avery Gilbert MD Neck CTA 08/29/18 11:59 IMPRESSION: No high-grade stenosis or focal occlusion involving intracranial or cervical vasculature. No evidence of acute dissection. No evidence of aneurysm. D/ / 08/29/2018 12:46:32 Avery Gilbert MD / jacey Interpreting Provider: Avery Gilbert MD Brain MRI 08/29/18 14:12 IMPRESSION: Acute infarct anterior limb internal capsule on the right RECOMMENDATIONS: The findings were sent to the Radiology Results Communication Center at 8:42 pm on 08/29/2018to be communicated to a licensed caregiver. D/ / Moe Ricks MD / Moe Ricks MD Interpreting Provider: Moe Ricks MD Videofluoroscopic Swallow 08/30/18 00:01 IMPRESSION: Aspiration with thin liquids with a chin-tuck maneuver. Intermittent laryngeal penetration with thin liquids with a chin-tuck maneuver. No laryngeal penetration or aspiration with the remaining tested consistencies. Please see separate speech pathology report for full discussion of findings and recommendations. D/ / Sai Estes MD / Sai Estes MD Interpreting Provider: Sai Estes MD Echocardiogram 08/30/18 14:12 Impressions: LVEF 60%. Mild left ventricular diastolic dysfunction. Definity echo contrast was used. Normal right ventricular structure and function. No significant valvular dysfunction. No pulmonary hypertension. No evidence of PFO with agitated saline contrast. Left Ventricular Wall Motion: Rest Echo Findings All wall segments showed normal motion. Findings: Study Quality * Technically adequate exam. ECG Findings * Sinus bradycardia. Left Ventricle * LVEF 60%. * Mild left ventricular diastolic dysfunction. * Definity echo contrast was used. * Normal LV chamber size, wall thickness and function. Right Ventricle * Normal right ventricular structure and function. Left Atrium * Normal left atrial size. Right Atrium * Normal right atrial size. Aortic Valve * Aortic valve not well visualized. * No aortic regurgitation. * No aortic stenosis. Mitral Valve * Mitral valve not well visualized. * No mitral stenosis. * No mitral regurgitation. Tricuspid Valve * Tricuspid valve not well visualized. * No tricuspid regurgitation. Pulmonic Valve * Pulmonic valve not well visualized. * No pulmonic regurgitation. * No pulmonic stenosis. Pulmonary Artery * Pulmonary artery not well visualized. Aorta * Not well visualized. Pericardium * There is no pericardial effusion present. Interatrial Septum * No evidence of PFO by color Doppler. * No evidence of PFO with agitated saline contrast. IVC * The IVC is not dilated. Consult Discharge Plan - Plan Referrals: Yoan Dudley MD [Primary Care Provider] - (Appointment has been requested. Our offices will call with an appointment.) (1) CVA (cerebral vascular accident) Qualifiers: CVA mechanism: unspecified Qualified Code(s): I63.9 - Cerebral infarction, unspecified (2) COPD (chronic obstructive pulmonary disease) Qualifiers: COPD type: unspecified COPD Qualified Code(s): J44.9 - Chronic obstructive pulmonary disease, unspecified (3) HLD (hyperlipidemia) Qualifiers: Hyperlipidemia type: pure hypercholesterolemia Qualified Code(s): E78.00 - Pure hypercholesterolemia, unspecified; E78.0 - Pure hypercholesterolemia (4) HTN (hypertension) Qualifiers: Hypertension type: essential hypertension Qualified Code(s): I10 - Essential (primary) hypertension
[2018-08-30] MEDS ORDERED: E-Z-PAQUE (BARIUM SULF) SUSP 1 BOTTLE PO ONE (16:18)
[2018-08-30] MEDS ORDERED: E-Z-HD (BARIUM SULF) SUSPENSION PO ONE (16:18)
[2018-08-31] MEDS: *HR* Heparin 5,000 UNIT/ML VIAL SQ SCH ×2 (05:41→18:02)
[2018-08-31 05:50] LABS: BUN/Creatinine Ratio 11 (6-26); Blood Urea Nitrogen 12 mg/dL (8-23); Calcium 9.2 mg/dL (8.6-10.3); Carbon Dioxide 25 mEq/L (23-29); Chloride 104 mEq/L (98-107); Glucose 113 mg/dL (70-105); Magnesium 1.9 mg/dL (1.6-2.6); Osmolality,Calculated 293 (280-300); Potassium 3.5 mEq/L (3.5-5.1); Sodium 141 mEq/L (136-145); eGFR For African Americans > 60 (> 60); eGFR For Non-African Americans > 60 (> 60)
--- NOTE | 2018-08-31 13:43 | Internal Med Progress Note ---
Hospitalist Progress Note - Encounter Date of Encounter: 08/31/18 Time of Encounter: 13:39 - Subjective Interval History: Pt was seen and examined at bed side. Pt stated he is feeling better today.. speech is better now. Still has left facial droop Rt side weakness is little better - Exam Vitals: Temp Pulse Resp BP Pulse Ox 97.3 F L 70 16 148/90 95 08/31/18 11:11 08/31/18 11:11 08/31/18 11:11 08/31/18 11:11 08/31/18 11:11 Exam: Gen: Alert, awake, Oriented to time,place and person Chest: Diminished breath sounds B/L, No wheezing, No crackles, No rales Heart: S1S2+ RRR No murmurs Abd: Soft, NT, BS +, No organomegaly Ext: No edema, pulses are palpable, No calf tenderness Neuro : Left facial droop, Rt UE / LE 4/5 motor strength Skin: No rash. 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 Not a candidate fot tPA Since he failed on ASA, switched to Plavix Cont Lipitor 80mg Reviewed Carotid Doppler -Non stenotic plaque is the only finding Echo showed Preserved LVEF, No PFO Appreciate Neuro recommendations PT / OT recommend swing bed placement SW/ CM working on it Possible d/c on Tuesday (2) COPD (chronic obstructive pulmonary disease) Current Visit: No Status: Chronic Assessment and Plan: Not in exacerbation cont home inhalers (3) HLD (hyperlipidemia) Current Visit: No Status: Chronic Assessment and Plan: On Statin (4) HTN (hypertension) Current Visit: No Status: Chronic Assessment and Plan: stable BP Continue home medications (5) DVT prophylaxis Current Visit: No Status: Acute Assessment and Plan: on Heparin SQ - Time Spent with Patient Total time spent is greater than 50% in coordination of care (as documented) at patient's floor/unit and/or counseling patient: Internal Medicine: Result - Labs CBC & Chem 7: 08/29/18 11:57 08/31/18 04:56 Labs: BMP 08/31/18 04:56 Sodium 141 Potassium 3.5 Chloride 104 Carbon Dioxide 25 BUN 12 Creatinine 1.14 Glucose 113 H Calcium 9.2 - ABG Interpretation ABG results: PT/INR, D-dimer PT 11.5 Seconds (9.4-12.1) 08/29/18 11:57 - Impressions Impressions Videofluoroscopic Swallow 08/30/18 00:01 IMPRESSION: Aspiration with thin liquids with a chin-tuck maneuver. Intermittent laryngeal penetration with thin liquids with a chin-tuck maneuver. No laryngeal penetration or aspiration with the remaining tested consistencies. Please see separate speech pathology report for full discussion of findings and recommendations. D/ / Sai Estes MD / Sai Estes MD Interpreting Provider: Sai Estes MD Consult Discharge Plan - Plan Referrals: Yoan Dudley MD [Primary Care Provider] - (Appointment has been requested. Our offices will call with an appointment.) (1) CVA (cerebral vascular accident) Qualifiers: CVA mechanism: unspecified Qualified Code(s): I63.9 - Cerebral infarction, unspecified (2) COPD (chronic obstructive pulmonary disease) Qualifiers: COPD type: unspecified COPD Qualified Code(s): J44.9 - Chronic obstructive pulmonary disease, unspecified (3) HLD (hyperlipidemia) Qualifiers: Hyperlipidemia type: pure hypercholesterolemia Qualified Code(s): E78.00 - Pure hypercholesterolemia, unspecified; E78.0 - Pure hypercholesterolemia (4) HTN (hypertension) Qualifiers: Hypertension type: essential hypertension Qualified Code(s): I10 - Essential (primary) hypertension
[2018-08-31] MEDS: FLUTICASONE FUROATE 100 MCG IH SCH (17:21)
[2018-09-01] MEDS: *HR* Heparin 5,000 UNIT/ML VIAL SQ SCH ×2 (05:39→17:14)
[2018-09-01] MEDS: FLUTICASONE FUROATE 100 MCG IH SCH (10:02)
--- NOTE | 2018-09-01 14:16 | Internal Med Progress Note ---
Hospitalist Progress Note - Encounter Date of Encounter: 09/01/18 Time of Encounter: 14:13 - Subjective Interval History: Mr. Lester is a 78 year old male with known PMH of COPD, HTN, HLD and multiple TIA pt was brought into ER by family stating he noticed Left facial droop this morning, along with Rt side weakness. He woke up with Left facial droop, some slurred speech due to facial droop and later he noticed Rt upper and lower extremity weakness. When he came to ER this morning at 11 AM , he was out of window for tPA treatment. Was admitted in the hospital and placed him on cardiac care nurse. His brain MRI showed acute infarct anterior limb internal capsule on the right. Pt still has some Left facial droop and Rt side weakness.. However overall feels better. - Exam Vitals: Temp Pulse Resp BP Pulse Ox 98.6 F 73 16 145/80 95 09/01/18 10:54 09/01/18 10:54 09/01/18 10:54 09/01/18 10:54 09/01/18 10:54 Exam: Gen: Alert, awake, Oriented to time,place and person Chest: Diminished breath sounds B/L, No wheezing, No crackles, No rales Heart: S1S2+ RRR No murmurs Abd: Soft, NT, BS +, No organomegaly Ext: No edema, pulses are palpable, No calf tenderness Neuro : Left facial droop, Rt UE / LE 4/5 motor strength Skin: No rash. 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 Not a candidate for tPA Since he failed on ASA, switched to Plavix Cont Lipitor 80mg Reviewed Carotid Doppler -Non stenotic plaque is the only finding Echo showed Preserved LVEF, No PFO Appreciate Neuro recommendations PT / OT recommend swing bed placement SW/ CM working on it Possible d/c on Tuesday (2) COPD (chronic obstructive pulmonary disease) Current Visit: No Status: Chronic Assessment and Plan: Not in exacerbation cont home inhalers (3) HLD (hyperlipidemia) Current Visit: No Status: Chronic Assessment and Plan: On Statin (4) HTN (hypertension) Current Visit: No Status: Chronic Assessment and Plan: stable BP Continue home medications (5) DVT prophylaxis Current Visit: No Status: Acute Assessment and Plan: on Heparin SQ - Time Spent with Patient Total time spent is greater than 50% in coordination of care (as documented) at patient's floor/unit and/or counseling patient: Internal Medicine: Result - Labs CBC & Chem 7: 08/29/18 11:57 08/31/18 04:56 - ABG Interpretation ABG results: PT/INR, D-dimer PT 11.5 Seconds (9.4-12.1) 08/29/18 11:57 Consult Discharge Plan - Plan Referrals: Yoan Dudley MD [Primary Care Provider] - (Appointment has been requested. Our offices will call with an appointment.) (1) CVA (cerebral vascular accident) Qualifiers: CVA mechanism: unspecified Qualified Code(s): I63.9 - Cerebral infarction, unspecified (2) COPD (chronic obstructive pulmonary disease) Qualifiers: COPD type: unspecified COPD Qualified Code(s): J44.9 - Chronic obstructive pulmonary disease, unspecified (3) HLD (hyperlipidemia) Qualifiers: Hyperlipidemia type: pure hypercholesterolemia Qualified Code(s): E78.00 - Pure hypercholesterolemia, unspecified; E78.0 - Pure hypercholesterolemia (4) HTN (hypertension) Qualifiers: Hypertension type: essential hypertension Qualified Code(s): I10 - Essential (primary) hypertension
[2018-09-01] MEDS ORDERED: *HR* Metoprolol 5 MG/5 ML VIAL IVP ONE (20:11)
[2018-09-02] MEDS: *HR* Heparin 5,000 UNIT/ML VIAL SQ SCH (05:45)
--- NOTE | 2018-09-02 08:26 | Internal Med Progress Note ---
Hospitalist Progress Note - Encounter Date of Encounter: 09/02/18 Time of Encounter: 08:24 - Subjective Interval History: Mr. Lester is a 78 year old male with known PMH of COPD, HTN, HLD and multiple TIA pt was brought into ER by family stating he noticed Left facial droop this morning, along with Rt side weakness. He woke up with Left facial droop, some slurred speech due to facial droop and later he noticed Rt upper and lower extremity weakness. When he came to ER this morning at 11 AM , he was out of window for tPA treatment. Was admitted in the hospital and placed him on pvc monitor. His brain MRI showed acute infarct anterior limb internal capsule on the right. Pt still has some Left facial droop and Rt side weakness.. - Exam Vitals: Temp Pulse Resp BP Pulse Ox 98.5 F 67 16 150/90 97 09/02/18 06:29 09/02/18 06:29 09/02/18 06:29 09/02/18 06:29 09/02/18 06:29 Exam: Gen: Alert, awake, Oriented to time,place and person Chest: Diminished breath sounds B/L, No wheezing, No crackles, No rales Heart: S1S2+ RRR No murmurs Abd: Soft, NT, BS +, No organomegaly Ext: No edema, pulses are palpable, No calf tenderness Neuro : Left facial droop, Rt UE / LE 4/5 motor strength Skin: No rash. 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 Not a candidate for tPA Since he failed on ASA, switched to Plavix Cont Lipitor 80mg Reviewed Carotid Doppler -Non stenotic plaque is the only finding Echo showed Preserved LVEF, No PFO Appreciate Neuro recommendations PT / OT recommend swing bed placement SW/ CM working on it (2) COPD (chronic obstructive pulmonary disease) Current Visit: No Status: Chronic Assessment and Plan: Not in exacerbation cont home inhalers (3) HLD (hyperlipidemia) Current Visit: No Status: Chronic Assessment and Plan: On Statin (4) HTN (hypertension) Current Visit: No Status: Chronic Assessment and Plan: stable BP Continue home medications (5) DVT prophylaxis Current Visit: Yes Status: Acute Assessment and Plan: on Heparin SQ - Time Spent with Patient Total time spent is greater than 50% in coordination of care (as documented) at patient's floor/unit and/or counseling patient: Greater than 35 minutes Plan of Care Discussed with: patient Internal Medicine: Result - Labs CBC & Chem 7: 08/29/18 11:57 08/31/18 04:56 - ABG Interpretation ABG results: PT/INR, D-dimer PT 11.5 Seconds (9.4-12.1) 08/29/18 11:57 Consult Discharge Plan - Plan Referrals: Yoan Dudley MD [Primary Care Provider] - (Appointment has been requested. Our offices will call with an appointment.) (1) CVA (cerebral vascular accident) Qualifiers: CVA mechanism: unspecified Qualified Code(s): I63.9 - Cerebral infarction, unspecified (2) COPD (chronic obstructive pulmonary disease) Qualifiers: COPD type: unspecified COPD Qualified Code(s): J44.9 - Chronic obstructive pulmonary disease, unspecified (3) HLD (hyperlipidemia) Qualifiers: Hyperlipidemia type: pure hypercholesterolemia Qualified Code(s): E78.00 - Pure hypercholesterolemia, unspecified; E78.0 - Pure hypercholesterolemia (4) HTN (hypertension) Qualifiers: Hypertension type: essential hypertension Qualified Code(s): I10 - Essential (primary) hypertension
[2018-09-02] MEDS: FLUTICASONE FUROATE 100 MCG IH SCH (09:32)
--- NOTE | 2018-09-02 10:11 | Event Note ---
Date of Encounter: 09/02/18 Time of Encounter: 10:09 shift manager provider notified me that patient had one episode of atrial fibrillation with RVR, he received 1 dose of IV metoprolol, was self converted back to sinus rhythm. Telemetry chest and was carefully reviewed. Episodic atrial flutter with 2 to one conduction, and variable conduction were noted. 1 episode of atrial fibrillation was recorded on the EKG. Patient had a known history of atrial fever/aflutter. I will temporarily start the patient on low-dose metoprolol and Eliquis. Cardiology consult, appreciate help.
--- NOTE | 2018-09-02 13:29 | Cardiology Consult Note ---
Date of Encounter: 09/02/18 Time of Encounter: 13:27 Assessment and Plan (1) CVA (cerebral vascular accident) Current Visit: Yes Status: Acute Per cardiology: -Admitted with CVA. -Management per primary and neurology services. Qualifiers: CVA mechanism: unspecified Qualified Code(s): I63.9 - Cerebral infarction, unspecified (2) Paroxysmal atrial fibrillation Current Visit: Yes Status: Acute Per cardiology: -PAF noted this admission, newly detected. -Patient was asymptomatic. -Patient has been started on BB and HR is controlled. -Chadsvasc score 5 (age2, HTN, CVA2). Patient has been started on eliquis for anticoagulation. -TTE with LVEF 60%, no significant valvular dysfunction, no wall motion abnormalities. -Agree with BB and eliquis. -Anticipate sign off once seen and evaluated by . Will arrange outpatient follow up. Discussion w patient/family: The assessment and plan as outlined above was discussed with the patient and/or family members who expressed understanding and agreement. All questions were answered. Thank you for involving us in the care of your patient. Please call with any questions. Discussed and reviewed with . History of Present Illness Consult date: 09/02/18 Requesting physician: Omar Wright Consult reason: a.fib/flutter Chief complaint: CVA History of present illness: Mr. Lester is a 78 year old male with a relevant past medical history of HTN, COPD, depression, GERD, who presented to [facility] with left sided weakness and difficulty speaking. Patient was diagnosed with CVA. Cardiology has been consulted for a.fib/flutter noted this admission. Patient denies palpitations or fluttering. Denies shortness of breath or increased fatigue. Patient states plans for discharge to rehab facility. Past Med Surg Social Fam HX - Past Medical History Attestation: Yes The following information was validated with the patient. 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,toe amputation - Social History Smoking Status: Never smoker Smokeless Tobacco Status: No Alcohol use: none Drug use: none - Family History Brother Family Member Ethnicity: Non- Living Status: Hx Family Cancer: Yes Hx Family Endocrine Disorder: Yes (DM) Father Family Member Ethnicity: Non- Living Status: Hx Family Cardiac Disorders: Yes Hx Family Respiratory Disorders: Yes (Asthma) Hx Family Cancer: No Hx Family GI Disorders: No Hx Family Endocrine Disorder: No Hx Family Neuromuscular Disorders: No Hx Family Neurologic Disorders: No Hx Family HEENT Disorders: No Hx Family Autoimmune Disorders: No Mother Family Member Ethnicity: Non- Living Status: Hx Family Cardiac Disorders: No Hx Family Respiratory Disorders: No Hx Family Cancer: No Hx Family GI Disorders: No Hx Family Endocrine Disorder: No Hx Family Neuromuscular Disorders: No Hx Family Neurologic Disorders: No Hx Family HEENT Disorders: No Hx Family Autoimmune Disorders: No Medications and Allergies Albuterol Neb [Proventil Neb] 2.5 mg IH TID PRN 05/12/16 [History] Aspirin Enteric Coated [Aspirin EC] 81 mg PO DAILY 05/12/16 [History] Citalopram Hydrobromide [Celexa] 40 mg PO DAILY 05/12/16 [History] Lisinopril [Zestril] 5 mg PO DAILY 05/12/16 [History] Simvastatin [Zocor] 20 mg PO HS 05/12/16 [History] Umeclidinium Brm/Vilanterol Tr [Anoro Ellipta 62.5-25 Mcg INH] 1 puff IH DAILY 05/12/16 [History] Omeprazole [PriLOSEC] 40 mg PO DAILY #30 cap 05/14/16 [Rx] Acetaminophen [Pain Relief] 1,500 mg PO HS PRN 08/30/18 [History] Albuterol Sulfate [Ventolin Hfa] 2 puff IH Q4-6H PRN 08/30/18 [History] Fluticasone Furoate [Arnuity Ellipta] 1 puff IH DAILY 08/30/18 [History] Allergy/AdvReac Type Severity Reaction Status Date / Time Penicillins AdvReac Rash Verified 02/28/18 12:27 All Systems Review: The remainder of the systems were reviewed and are negative - Cardiovascular Cardiovascular: as per HPI - Neurological Neurological: abnormal speech, focal weakness Physical Examination Vital Signs, Last 4 Hours Temp Pulse Resp BP Pulse Ox 09/02/18 10:36 98.3 F 76 16 143/81 96 General: Conversant, No Apparent Distress HEENT: Atraumatic, Normocephaly, Mucus Membranes Moist Neck: No JVD, Normal carotid pulses Cardiac: Reg Rate and Rhythm, Normal S1 and S2, No Murmur Lungs: Normal Breath Sounds, No Wheeze, Rales, Rhonchi Neuro: Alert and responsive, No focal deficits noted Abdomen: Soft, Non-Tender Skin: No rashes noted on visualized skin Musculoskeletal: No Chest Wall Tenderness, Other (Left sided facial droop noted. ) Extremities: No Clubbing, No Cyanosis, No Edema, Normal Pulses Results 08/29/18 11:57 08/31/18 04:56 Active Medications Acetaminophen (Tylenol) 650 mg PO Q6HR PRN PRN Reason: Mild Pain/Fever Stop: 02/28/19 13:31 Hydrocodone Bitart/Acetaminophen ([place] 5-325 Mg) 1 tab PO Q6HR PRN PRN Reason: Moderate Pain Stop: 02/28/19 13:31 Albuterol Sulfate (Proventil Neb) 2.5 mg IH TIDR PRN; Protocol PRN Reason: Shortness Of Breath Stop: 02/28/19 14:11 Albuterol Sulfate (Proventil Inhaler) 2 puff IH [id number] PRN PRN Reason: Shortness Of Breath Stop: 02/28/19 14:11 Apixaban (Eliquis) 5 mg PO BID [facility] Stop: 03/04/19 21:01 Atorvastatin Calcium (Lipitor) 80 mg PO HS [facility] Stop: 02/28/19 21:01 Last Admin: 09/01/18 20:34 Dose: 80 mg Documented by: Citalopram Hydrobromide (Celexa) 40 mg PO DAILY [facility] Stop: 03/01/19 09:01 Last Admin: 09/02/18 09:32 Dose: 40 mg Documented by: Clopidogrel Bisulfate (Plavix) 75 mg PO DAILY [facility] Stop: 02/28/19 14:16 Last Admin: 09/02/18 09:31 Dose: 75 mg Documented by: Docusate Sodium (Colace) 100 mg PO BID PRN PRN Reason: Constipation Stop: 02/28/19 21:01 Ferrous Sulfate (Ferrous Sulfate) 325 mg PO DAILY [facility] Stop: 03/01/19 09:01 Last Admin: 09/02/18 09:32 Dose: 325 mg Documented by: Lisinopril (Zestril) 5 mg PO DAILY [facility]; Protocol Stop: 03/01/19 09:01 Last Admin: 09/02/18 09:32 Dose: 5 mg Documented by: Metoprolol Tartrate (Lopressor) 12.5 mg PO BID [facility] Stop: 03/04/19 21:01 Naloxone HCl (Narcan) 0.4 mg IVP Q2MPRN PRN PRN Reason: SEE COMMENTS Stop: 02/28/19 13:31 Omeprazole (Prilosec) 40 mg PO DAILY [facility] Stop: 03/01/19 09:01 Last Admin: 09/02/18 09:34 Dose: 40 mg Documented by: Ondansetron HCl (Zofran) 4 mg IVP Q8HR PRN PRN Reason: Nausea And Vomiting Stop: 02/28/19 13:31 Pharmacy Profile Note (Patient Taking Own Medication) 0 each IH DAILY [facility] Stop: 03/01/19 09:01 Last Admin: 09/02/18 09:32 Dose: Not Given Documented by: Laboratory Tests 08/29/18 08/31/18 11:57 04:56 Hgb 13.0 Creatinine 1.14 - Imaging and Cardiology Chest Xray: report reviewed Echo: report reviewed - EKG Interpretation EKG results cardiology: personally reviewed (ECG with a.fib, HR 109.), other (Telemetry reviewed with average HR previous 12 hours noted to be 77, SR with intermittent PAF noted.) Consult Discharge Plan - Plan Referrals: Yoan Dudley MD [Primary Care Provider] - (Appointment has been requested. Our offices will call with an appointment.)
[2018-09-02] MEDS: Apixaban 5 MG TABLET PO SCH (20:17)
[2018-09-03 05:24] LABS: Thyroid Stimulating Hormone 1.135 mcIU/mL (0.340-5.600)
[2018-09-03 06:44] VITALS: BP 161/91
[2018-09-03] MEDS: Apixaban 5 MG TABLET PO SCH (08:40)
[2018-09-03] MEDS: FLUTICASONE FUROATE 100 MCG IH SCH (08:41)
--- NOTE | 2018-09-03 10:17 | Discharge Summary ---
- NOTES TO OUTPATIENT PROVIDER Notes to Outpatient Provider: f/u with PCP within 2 weeks. F/u with neuro wihtin 2 weeks. f/u with cardiology within 2 weeks. Date of Encounter: 09/03/18 Time of Encounter: 10:15 - Discharge Diagnosis (1) CVA (cerebral vascular accident) Priority: Primary Status: Acute Qualifiers: CVA mechanism: unspecified Qualified Code(s): I63.9 - Cerebral infarction, unspecified (2) COPD (chronic obstructive pulmonary disease) Priority: Secondary Status: Chronic Qualifiers: COPD type: unspecified COPD Qualified Code(s): J44.9 - Chronic obstructive pulmonary disease, unspecified (3) HLD (hyperlipidemia) Priority: Secondary Status: Chronic Qualifiers: Hyperlipidemia type: pure hypercholesterolemia Qualified Code(s): E78.00 - Pure hypercholesterolemia, unspecified; E78.0 - Pure hypercholesterolemia (4) HTN (hypertension) Priority: Secondary Status: Chronic Qualifiers: Hypertension type: essential hypertension Qualified Code(s): I10 - Essential (primary) hypertension (5) DVT prophylaxis Priority: Primary Status: Acute (6) Paroxysmal atrial fibrillation Priority: Primary Status: Acute Hospital course: Mr. Lester is a 78 year old male with known PMH of COPD, HTN, HLD and multiple TIA pt was brought into ER by family stating he noticed Left facial droop this morning, along with left side weakness. He woke up with Left facial droop, some slurred speech due to facial droop and later he noticed Rt upper and lower extremity weakness. When he came to ER this morning at 11 AM , he was out of window for tPA treatment. He still has Left facial droop and mild slurred speech. He failed bed side swallow eval in the ER. MRI of brain showed acute infarct involving anterior limb of right internal capsule. Neurology was consulted. Aspirin was changed to Plavix. On the fourth of hospital day, telemetry showed atrial fibrillation with RVR, atrial flutter was also detected, cardiology was consulted, patient was started on metoprolol and Eliquis. On the discharge today, telemetry showed a sinus rhythm. Patient vital signs as well as lab results were stable. He will be discharged to a rehabilitation center today, he was instructed to take medications as prescribed including Plavix and Eliquis, follow-up with PCP, cardiology, and neurology as scheduled. Discharge discussed with: patient Time spent discussing smoking cessation with patient: more than 10 minutes - Time Spent with Patient Total time spent providing and/or coordinating discharge services: Time spent: Greater than 30 minutes - Discharge Medications Prescriptions: New Apixaban [Eliquis] 5 mg PO BID #60 tablet Atorvastatin [Lipitor] 80 mg PO HS #30 tablet Metoprolol [Lopressor] 12.5 mg PO BID #60 tablet Clopidogrel [Plavix] 75 mg PO DAILY #30 tablet Continued Lisinopril [Zestril] 5 mg PO DAILY Citalopram Hydrobromide [Celexa] 40 mg PO DAILY Umeclidinium Brm/Vilanterol Tr [Anoro Ellipta 62.5-25 Mcg INH] 1 puff IH DAILY Albuterol Neb [Proventil Neb] 2.5 mg IH TID PRN PRN Reason: Shortness Of Breath Omeprazole [PriLOSEC] 40 mg PO DAILY #30 cap Acetaminophen [Pain Relief] 1,500 mg PO HS PRN PRN Reason: Pain Albuterol Sulfate [Ventolin Hfa] 2 puff IH Q4-6H PRN PRN Reason: Shortness Of Breath Fluticasone Furoate [Arnuity Ellipta] 1 puff IH DAILY Discontinued Aspirin Enteric Coated [Aspirin EC] 81 mg PO DAILY Simvastatin [Zocor] 20 mg PO HS Home Medications: Albuterol Neb [Proventil Neb] 2.5 mg IH TID PRN 05/12/16 [History] Citalopram Hydrobromide [Celexa] 40 mg PO DAILY 05/12/16 [History] Lisinopril [Zestril] 5 mg PO DAILY 05/12/16 [History] Umeclidinium Brm/Vilanterol Tr [Anoro Ellipta 62.5-25 Mcg INH] 1 puff IH DAILY 05/12/16 [History] Omeprazole [PriLOSEC] 40 mg PO DAILY #30 cap 05/14/16 [Rx] Acetaminophen [Pain Relief] 1,500 mg PO HS PRN 08/30/18 [History] Albuterol Sulfate [Ventolin Hfa] 2 puff IH Q4-6H PRN 08/30/18 [History] Fluticasone Furoate [Arnuity Ellipta] 1 puff IH DAILY 08/30/18 [History] Apixaban [Eliquis] 5 mg PO BID #60 tablet 09/03/18 [Rx] Atorvastatin [Lipitor] 80 mg PO HS #30 tablet 09/03/18 [Rx] Clopidogrel [Plavix] 75 mg PO DAILY #30 tablet 09/03/18 [Rx] Metoprolol [Lopressor] 12.5 mg PO BID #60 tablet 09/03/18 [Rx] Allergies/Adverse Reactions: Allergy/AdvReac Type Severity Reaction Status Date / Time Penicillins AdvReac Rash Verified 02/28/18 12:27 Date of admission: 08/30/18 11:14 Primary care physician: Yoan Dudley MD Consults: 08/29/18 13:31 Consult to Occupational Therapy [CONS] Routine Comment: Evaluate, develop and implement POC Reason for Consult: Possible CVA Does patient have active BEDREST order?: No Is patient medically & hemodynamically stable?: Yes Patient assessed for mobility or mobilized this visit?: Yes Consult to Physical Therapy [CONS] Routine Comment: Evaluate, develop and implement POC Reason for Consult: Possible CVA Does patient have active BEDREST order?: No Is patient medically & hemodynamically stable?: Yes Patient assessed for mobility or mobilized this visit?: Yes 08/29/18 13:47 Consult to Speech Therapy [CONS] Stat Comment: Evaluate, develop and implement POC Reason for Consult: failed nursing dysphagia, ER nurse states pt coughed and choked. Call Completed: No 08/29/18 14:11 Consult to Neurology [CONS] Routine Consulting Provider: Neurology [facility] Reason for Consult: Acute CVA Time Notified: 14:12 Call Completed: Yes 08/30/18 11:32 Consult to Water/Wastewater Project Manager [CONS] Routine Reason for SW Consult: placement Anticipated date of discharge: 09/03/18 - Constitutional Vitals: Temp Pulse Resp BP Pulse Ox 97.9 F 63 16 161/91 96 09/03/18 06:40 09/03/18 06:40 09/03/18 06:40 09/03/18 06:40 09/03/18 06:40 General appearance: Present: cooperative, A&O X 3, no acute distress, answers questions appropriately Exam: PHYSICAL EXAMINATION: GENERAL APPEARANCE: The patient is alert, oriented and in no acute distress. HEENT: Head is normocephalic. The sinuses are nontender. Pupils are equal and reactive. The nares are patent. Oropharynx clear without lesions. NECK: Supple without lymphadenopathy. HEART: Regular rate and rhythm. LUNGS: No crackles or wheezes are heard. ABDOMEN: Soft, nontender, nondistended with good bowel sounds heard. Inguinal area is normal. EXTREMITIES: Without cyanosis, clubbing or edema. NEUROLOGICAL: Gross nonfocal. SKIN: Warm and dry without any rash. - Patient Status Disposition: Home, Self-Care Condition: Fair Functional capacity at discharge: independent ambulation Overall status at discharge: patient is progressing back to baseline - Discharge Instructions Follow Up With: Yoan Dudley MD [Primary Care Provider] - (Appointment has been requested. Our offices will call with an appointment.) - Diet and Activity Activity: increase activity as tolerated Diet: low fat, low cholesterol, low salt diet
--- NOTE | 2018-09-03 10:27 | Physician Discharge Referral ---
ExtendedCare Referral Info Provider in Charge after Transfer: Other Institutional Level of Care: Skilled - Diagnosis (1) CVA (cerebral vascular accident) Priority: Primary Status: Acute (2) COPD (chronic obstructive pulmonary disease) Priority: Secondary Status: Chronic (3) HLD (hyperlipidemia) Priority: Secondary Status: Chronic (4) HTN (hypertension) Priority: Secondary Status: Chronic (5) DVT prophylaxis Priority: Primary Status: Acute (6) Paroxysmal atrial fibrillation Priority: Primary Status: Acute - Transfer Medications Prescriptions: Apixaban [Eliquis] 5 mg PO BID #60 tablet Atorvastatin [Lipitor] 80 mg PO HS #30 tablet Metoprolol [Lopressor] 12.5 mg PO BID #60 tablet Clopidogrel [Plavix] 75 mg PO DAILY #30 tablet Home Medications: Albuterol Neb [Proventil Neb] 2.5 mg IH TID PRN 05/12/16 [History] Citalopram Hydrobromide [Celexa] 40 mg PO DAILY 05/12/16 [History] Lisinopril [Zestril] 5 mg PO DAILY 05/12/16 [History] Umeclidinium Brm/Vilanterol Tr [Anoro Ellipta 62.5-25 Mcg INH] 1 puff IH DAILY 05/12/16 [History] Omeprazole [PriLOSEC] 40 mg PO DAILY #30 cap 05/14/16 [Rx] Acetaminophen [Pain Relief] 1,500 mg PO HS PRN 08/30/18 [History] Albuterol Sulfate [Ventolin Hfa] 2 puff IH Q4-6H PRN 08/30/18 [History] Fluticasone Furoate [Arnuity Ellipta] 1 puff IH DAILY 08/30/18 [History] Apixaban [Eliquis] 5 mg PO BID #60 tablet 09/03/18 [Rx] Atorvastatin [Lipitor] 80 mg PO HS #30 tablet 09/03/18 [Rx] Clopidogrel [Plavix] 75 mg PO DAILY #30 tablet 09/03/18 [Rx] Metoprolol [Lopressor] 12.5 mg PO BID #60 tablet 09/03/18 [Rx] Allergies/Adverse Reactions: Allergy/AdvReac Type Severity Reaction Status Date / Time Penicillins AdvReac Rash Verified 02/28/18 12:27 - Respiratory Orders Smoking Cessation: Smoking cessation has been advised. For more information, call the [place] Tobacco Quit Line at 7-688-QHBL-NOW. - Advance Directives Code Status: Full Code CERTIFICATION: I certify that the transfer of the above named patient to an Extended Care Facility is necessary for the continuing treatment of the diagnosis listed. The above information is true and accurate reflection of patient's current condition. Confidential - Redisclosure prohibited without a patient's written consent.
--- NOTE | 2018-09-03 11:50 | Electrocardiograph Report ---
[address] [place], [place] [address] Test Date: 2018-09-01 Pat Name: Harmeet Lester Department: [id number] Room: 3B65 Gender: M Program Architect: : [id number] Requested By: Allen Quarles Order Number: [id number] Reading MD: Tori Hubbard Measurements Intervals [place] Rate: 109 P: [place]: 0 QRS: 48 QRSD: 90 T: 260 QT: 336 QTc: 400 Interpretive Statements ATRIAL FIBRILLATION WITH RAPID VENTRICULAR RESPONSE NONSPECIFIC ST ABNORMALITIES Electronically Signed On 09-03-2018 11:48:32 EDT by Tori Hubbard
== END 2018-09-03 14:06 | disposition other institution (70) | DRG 65 ==
LOC: EMEROOARM 11:55 → 3BNU 11:55 → SUATTDRO 13:35 → 3BNU 13:50
PROVIDERS: ADMIT Student in an Organized Health Care Education/Training Program; ATTEND Family Medicine

== ENCOUNTER 2018-10-22 06:53 | Inpatient (IN) ==
[2018-10-22] MEDS ORDERED: Pantoprazole 40 MG VIAL IVP ONE (07:01)
[2018-10-22] MEDS ORDERED: Aspirin 325 MG TABLET PO ONE (07:01)
--- NOTE | 2018-10-22 07:04 | Emergency Department Note ---
Disposition Clinical Impression: Chest pain due to CAD Disposition: Admitted As Inpatient Time of Disposition: 08:23 General Adult HPI - General Stated complaint: Chest Pain/SOB Time Seen by Provider: 10/22/18 06:58 Source: patient Mode of arrival: ambulatory Limitations: no limitations Nursing Notes Reviewed: Yes Vital Signs Reviewed: Yes - History of Present Illness HPI Narrative: 78-year-old male presents with the chest pain and shortness breath. Patient reported chest pressure in middle and right side chest around 4:00 this morning. Associate with shortness of breath. No nausea and vomiting. No cough. No chills and fever. Patient has history of COPD, stroke, GERD. Patient is on home oxygen. Patient had stroke on July 30. Patient is on Eliquis . Onset (ago): hour(s) (3) Location: chest Radiation: non-radiation - Related Data Home Medications Medication Instructions Recorded Confirmed Albuterol Neb [Proventil Neb] 2.5 mg IH TID PRN 05/12/16 10/22/18 Citalopram Hydrobromide [Celexa] 40 mg PO DAILY 05/12/16 10/22/18 Lisinopril [Zestril] 5 mg PO DAILY 05/12/16 10/22/18 Umeclidinium Brm/Vilanterol Tr 1 puff IH DAILY 05/12/16 10/22/18 [Anoro Ellipta 62.5-25 Mcg INH] Acetaminophen [Pain Relief] 1,500 mg PO HS PRN 08/30/18 10/22/18 Albuterol Sulfate [Ventolin Hfa] 2 puff IH Q4-6H PRN 08/30/18 10/22/18 Fluticasone Furoate [Arnuity 1 puff IH DAILY 08/30/18 10/22/18 Ellipta] Ranitidine HCl 150 mg PO DAILY 10/22/18 10/22/18 Simvastatin 20 mg PO DAILY 10/22/18 10/22/18 Previous Rx's Medication Instructions Recorded Omeprazole [PriLOSEC] 40 mg PO DAILY #30 cap 05/14/16 Apixaban [Eliquis] 5 mg PO BID #60 tablet 09/03/18 Atorvastatin [Lipitor] 80 mg PO HS #30 tablet 09/03/18 Clopidogrel [Plavix] 75 mg PO DAILY #30 tablet 09/03/18 Metoprolol [Lopressor] 12.5 mg PO BID #60 tablet 09/03/18 Allergies Allergy/AdvReac Type Severity Reaction Status Date / Time Penicillins AdvReac Rash Verified 02/28/18 12:27 Constitutional: Denies: fever, chills Eyes: Denies: eye pain ENT ED: Denies: ear pain Cardiovascular: Reports: chest pain Respiratory: Reports: dyspnea. Denies: cough Gastrointestinal: Denies: abdominal pain Genitourinary: Denies: urgency Musculoskeletal: Denies: back pain Integumentary: Denies: rash Neurological: Denies: headache Psychiatric: Denies: anxiety Endocrine: Denies: fatigue Hematological/Lymphatic: Denies: easy bleeding Allergic/Immunologic: Denies: facial swelling Past Medical History - Past Medical History Medical history: Reports: COPD, CVA, hyperlipidemia, hypertension Surgical history: Reports: orthopedic, other, other Psychiatric history: Reports: no psych history - Social History Smoking Status: Former smoker Smokeless Tobacco Status: Yes Alcohol use: Reports: none Drug use: Reports: none Physical Exam - General Limitations: no limitations General appearance: alert - Head Head exam: atraumatic - Eye Eye exam: Present: normal appearance - ENT ENT exam: normal exam - Neck Neck exam: Present: normal inspection - Chest Chest inspection: Present: normal inspection, symmetric chest wall rise. Absent: tenderness - Respiratory Respiratory exam: Present: normal lung sounds bilaterally. Absent: respiratory distress, wheezes - Cardiovascular Cardiovascular exam: Present: regular rate, normal rhythm - Abdominal Exam Abdominal exam: Present: soft, tenderness Abdominal tenderness: Present: epigastrium - Extremities Exam Extremities exam: Present: normal inspection, full ROM. Absent: tenderness - Back Exam Back exam: Present: normal inspection, full ROM. Absent: tenderness - Neurological Exam Neurological exam: Present: alert, oriented X3 - Psychiatric Psychiatric exam: Present: normal affect - Skin Skin exam: Present: warm, intact Course Vital Signs Temperature 98 F 10/22/18 06:58 Pulse Rate 64 10/22/18 06:58 Respiratory Rate 14 10/22/18 06:58 Blood Pressure 181/90 10/22/18 06:58 O2 Sat by Pulse Oximetry 97 10/22/18 06:58 Temperature 97.9 F 10/22/18 10:38 Pulse Rate 59 10/22/18 10:38 Respiratory Rate 18 10/22/18 10:38 Blood Pressure 146/68 10/22/18 10:38 O2 Sat by Pulse Oximetry 92 10/22/18 10:38 Oxygen Delivery Oxygen Delivery Nasal Cannula Medical Decision Making - [facility] Narrative Medical decision making narrative: 78 year old male with history of hypertension, stroke, COPD, GERD presents with chest pain. Pt reported chest pressure in middle and right side chest since 4 am this morning. Associate with shortness of breath. No chills and fever. No cough. Physical exam: Afebrile, no tachycardia, bilateral lungs are clear, no wheezing, abdomen soft, mild tender on epigastric. No ankle edema. Pt's EKG: no ST elevation, xr no Pneumonia. Pt's heartscore is 5. Pt will be admit to hospital for chest pain rule out [place]. ASA, Nitrostat given in ED. Yahaira Recinos has seen the patient and agrees the above plan. - Lab Data Lab results reviewed: Yes I reviewed the patient's lab results. Result diagrams: 10/22/18 07:20 10/22/18 07:20 Lab Results 10/22/18 10/22/18 10/22/18 Range/Units 07:20 07:20 07:20 WBC 11.3 H (4.3-11.1) K/mcL RBC 4.37 (4.19-5.50) M/mcL Hgb 12.6 L (12.9-16.9) g/dL Hct 38.9 (37.5-50.1) % MCV 89.0 (83.0-100.0) fL MCH 28.8 (28.0-33.3) pg MCHC 32.4 (31.6-35.5) g/dL RDW 13.5 (11.5-14.5) % Plt Count 194 (140-400) K/mcL MPV 10.1 (9.4-12.4) fL Immature Gran % 0.4 (0-4) % Seg Neutrophils % 83.3 % Lymphocytes % 9.5 % Monocytes % 5.7 % Eosinophils % 0.6 % Basophils % 0.5 % Neutrophils # 9.4 H (1.6-8.9) K/mcL Lymphocytes # 1.1 (0.6-4.6) K/mcL Monocytes # 0.7 (0.0-1.3) K/mcL Eosinophils # 0.1 (0.0-0.6) K/mcL Basophils # 0.1 (0.0-0.2) K/mcL Sodium 142 (136-145) mEq/L Potassium 3.7 (3.5-5.1) mEq/L Chloride 107 (98-107) mEq/L Carbon Dioxide 28 (23-29) mEq/L BUN 11 (8-23) mg/dL Creatinine 0.97 (0.70-1.30) mg/dL Est GFR ( Amer) > 60 (> 60) Est GFR (Non-Af Amer) > 60 (> 60) BUN/Creatinine Ratio 11 (6-26) Glucose 178 H (70-105) mg/dL Est Mean Plasma Glucose mg/dl Hemoglobin A1c ( - 5.6) % Calculated Osmolality 298 (280-300) Calcium 9.3 (8.6-10.3) mg/dL Total Bilirubin 0.6 (0.3-1.0) mg/dL AST 13 (13-39) Units/L ALT 10 (7-52) Units/L Alkaline Phosphatase 115 H (34-104) Units/L Troponin I 0.03 (< 0.04) ng/mL B-Natriuretic Peptide 121 H (Less than 100) pg/mL Serum Total Protein 6.6 (6.4-8.9) g/dL Albumin 4.0 (3.5-5.7) g/dL Globulin 2.6 (2.4-3.5) g/dL Albumin/Globulin Ratio 1.5 (1.1-2.2) Triglycerides 71 (< 150) mg/dL Cholesterol 124 (< 200) mg/dL LDL Cholesterol, Calc 61 (0-99) mg/dL VLDL Cholesterol, Calc 14 (< 31) mg/dL HDL Cholesterol 49 (40-59) mg/dL Cholesterol/HDL Ratio 2.5 (0-4.9) Lipase 16 (11-82) Units/L 10/22/18 Range/Units 07:20 WBC (4.3-11.1) K/mcL RBC (4.19-5.50) M/mcL Hgb (12.9-16.9) g/dL Hct (37.5-50.1) % MCV (83.0-100.0) fL MCH (28.0-33.3) pg MCHC (31.6-35.5) g/dL RDW (11.5-14.5) % Plt Count (140-400) K/mcL MPV (9.4-12.4) fL Immature Gran % (0-4) % Seg Neutrophils % % Lymphocytes % % Monocytes % % Eosinophils % % Basophils % % Neutrophils # (1.6-8.9) K/mcL Lymphocytes # (0.6-4.6) K/mcL Monocytes # (0.0-1.3) K/mcL Eosinophils # (0.0-0.6) K/mcL Basophils # (0.0-0.2) K/mcL Sodium (136-145) mEq/L Potassium (3.5-5.1) mEq/L Chloride (98-107) mEq/L Carbon Dioxide (23-29) mEq/L BUN (8-23) mg/dL Creatinine (0.70-1.30) mg/dL Est GFR ( Amer) (> 60) Est GFR (Non-Af Amer) (> 60) BUN/Creatinine Ratio (6-26) Glucose (70-105) mg/dL Est Mean Plasma Glucose 137 mg/dl Hemoglobin A1c 6.4 H ( - 5.6) % Calculated Osmolality (280-300) Calcium (8.6-10.3) mg/dL Total Bilirubin (0.3-1.0) mg/dL AST (13-39) Units/L ALT (7-52) Units/L Alkaline Phosphatase (34-104) Units/L Troponin I (< 0.04) ng/mL B-Natriuretic Peptide (Less than 100) pg/mL Serum Total Protein (6.4-8.9) g/dL Albumin (3.5-5.7) g/dL Globulin (2.4-3.5) g/dL Albumin/Globulin Ratio (1.1-2.2) Triglycerides (< 150) mg/dL Cholesterol (< 200) mg/dL LDL Cholesterol, Calc (0-99) mg/dL VLDL Cholesterol, Calc (< 31) mg/dL HDL Cholesterol (40-59) mg/dL Cholesterol/HDL Ratio (0-4.9) Lipase (11-82) Units/L - Radiology Data Radiology results reviewed: Yes I reviewed the patient's radiology results. XR/XR chest 2V IMPRESSION: 1. Cardiomegaly and mild COPD. No acute cardiopulmonary process. 2. Moderate hiatal hernia D/ / Steve Malhotra MD / Steve Malhotra MD Interpreting Provider: Steve Malhotra MD
[2018-10-22 07:40] LABS: Basophils # 0.1 K/mcL (0.0-0.2); Basophils % 0.5 %; Eosinophils # 0.1 K/mcL (0.0-0.6); Eosinophils % 0.6 %; Hematocrit 38.9 % (37.5-50.1); Hemoglobin 12.6 g/dL (12.9-16.9); Immature Granulocytes % 0.4 % (0-4); Lymphocytes # 1.1 K/mcL (0.6-4.6); Lymphocytes % 9.5 %; Mean Corpuscular HGB Conc 32.4 g/dL (31.6-35.5); Mean Corpuscular Hemoglobin 28.8 pg (28.0-33.3); Mean Platelet Volume 10.1 fL (9.4-12.4); Monocytes # 0.7 K/mcL (0.0-1.3); Monocytes % 5.7 %; Neutrophils # 9.4 K/mcL (1.6-8.9); Platelet Count 194 K/mcL (140-400); Red Blood Count 4.37 M/mcL (4.19-5.50); Red Cell Distribution Width 13.5 % (11.5-14.5); Segmented Neutrophils % 83.3 %; White Blood Count 11.3 K/mcL (4.3-11.1)
[2018-10-22 08:02] LABS: Alanine Aminotransferase 10 Units/L (7-52); Albumin/Globulin Ratio 1.5 (1.1-2.2); Alkaline Phosphatase 115 Units/L (34-104); Aspartate Amino Transferase 13 Units/L (13-39); BUN/Creatinine Ratio 11 (6-26); Bilirubin,Total 0.6 mg/dL (0.3-1.0); Blood Urea Nitrogen 11 mg/dL (8-23); Calcium 9.3 mg/dL (8.6-10.3); Carbon Dioxide 28 mEq/L (23-29); Chloride 107 mEq/L (98-107); Globulin 2.6 g/dL (2.4-3.5); Glucose 178 mg/dL (70-105); Lipase 16 Units/L (11-82); Osmolality,Calculated 298 (280-300); Potassium 3.7 mEq/L (3.5-5.1); Sodium 142 mEq/L (136-145); Total Protein 6.6 g/dL (6.4-8.9); Troponin I 0.03 ng/mL (< 0.04); eGFR For African Americans > 60 (> 60); eGFR For Non-African Americans > 60 (> 60)
[2018-10-22] MEDS: Nitroglycerin 0.4 MG TAB.SUBL SL PRN ×3 (08:06→08:17)
[2018-10-22] MEDS ORDERED: *HR* Promethazine 25 MG/ML VIAL IVP PRN (08:50)
[2018-10-22] MEDS ORDERED: Ondansetron ODT 4 MG TAB.RAPDIS SL PRN (08:50)
[2018-10-22] MEDS ORDERED: Naloxone 0.4 MG/ML INJ IVP PRN (08:50)
--- NOTE | 2018-10-22 09:01 | Emergency Department Note ---
Disposition Clinical Impression: Chest pain due to CAD Disposition: Admitted As Inpatient Referrals: NONE,PCP [Primary Care Provider] - Time of Disposition: 09:01 General Adult HPI - General Chief complaint: ED Chest Pain Stated complaint: Chest Pain/SOB Time Seen by Provider: 10/22/18 06:58 Source: patient Mode of arrival: ambulatory Limitations: no limitations - History of Present Illness Location: chest Pain Scale: 8 - Related Data Home Medications Medication Instructions Recorded Confirmed Albuterol Neb [Proventil Neb] 2.5 mg IH TID PRN 05/12/16 10/22/18 Citalopram Hydrobromide [Celexa] 40 mg PO DAILY 05/12/16 10/22/18 Lisinopril [Zestril] 5 mg PO DAILY 05/12/16 10/22/18 Umeclidinium Brm/Vilanterol Tr 1 puff IH DAILY 05/12/16 10/22/18 [Anoro Ellipta 62.5-25 Mcg INH] Acetaminophen [Pain Relief] 1,500 mg PO HS PRN 08/30/18 10/22/18 Albuterol Sulfate [Ventolin Hfa] 2 puff IH Q4-6H PRN 08/30/18 10/22/18 Fluticasone Furoate [Arnuity 1 puff IH DAILY 08/30/18 10/22/18 Ellipta] Ranitidine HCl 150 mg PO DAILY 10/22/18 10/22/18 Simvastatin 20 mg PO DAILY 10/22/18 10/22/18 Previous Rx's Medication Instructions Recorded Omeprazole [PriLOSEC] 40 mg PO DAILY #30 cap 05/14/16 Apixaban [Eliquis] 5 mg PO BID #60 tablet 09/03/18 Atorvastatin [Lipitor] 80 mg PO HS #30 tablet 09/03/18 Clopidogrel [Plavix] 75 mg PO DAILY #30 tablet 09/03/18 Metoprolol [Lopressor] 12.5 mg PO BID #60 tablet 09/03/18 Allergies Allergy/AdvReac Type Severity Reaction Status Date / Time Penicillins AdvReac Rash Verified 02/28/18 12:27 Constitutional: Denies: fever, chills Eyes: Denies: eye pain ENT ED: Denies: ear pain Cardiovascular: Reports: chest pain Respiratory: Reports: dyspnea. Denies: cough Gastrointestinal: Denies: abdominal pain Genitourinary: Denies: urgency Musculoskeletal: Denies: back pain Integumentary: Denies: rash Neurological: Denies: headache Psychiatric: Denies: anxiety Endocrine: Denies: fatigue Hematological/Lymphatic: Denies: easy bleeding Allergic/Immunologic: Denies: facial swelling Past Medical History - Past Medical History Medical history: Reports: COPD, CVA, hyperlipidemia, hypertension Surgical history: Reports: orthopedic, other, other Psychiatric history: Reports: no psych history - Social History Smoking Status: Former smoker Smokeless Tobacco Status: Yes Alcohol use: Reports: none Drug use: Reports: none Physical Exam - General Limitations: no limitations General appearance: alert Course Vital Signs Temperature 98 F 10/22/18 06:58 Pulse Rate 64 10/22/18 06:58 Respiratory Rate 14 10/22/18 06:58 Blood Pressure 181/90 10/22/18 06:58 O2 Sat by Pulse Oximetry 97 10/22/18 06:58 Temperature 98 F 10/22/18 06:58 Pulse Rate 80 10/22/18 08:18 Respiratory Rate 24 10/22/18 08:18 Blood Pressure 136/98 10/22/18 08:18 O2 Sat by Pulse Oximetry 95 10/22/18 08:18 Oxygen Delivery Oxygen Delivery Room Air Medical Decision Making - Lab Data Result diagrams: 10/22/18 07:20 10/22/18 07:20 Lab Results 10/22/18 10/22/18 Range/Units 07:20 07:20 WBC 11.3 H (4.3-11.1) K/mcL RBC 4.37 (4.19-5.50) M/mcL Hgb 12.6 L (12.9-16.9) g/dL Hct 38.9 (37.5-50.1) % MCV 89.0 (83.0-100.0) fL MCH 28.8 (28.0-33.3) pg MCHC 32.4 (31.6-35.5) g/dL RDW 13.5 (11.5-14.5) % Plt Count 194 (140-400) K/mcL MPV 10.1 (9.4-12.4) fL Immature Gran % 0.4 (0-4) % Seg Neutrophils % 83.3 % Lymphocytes % 9.5 % Monocytes % 5.7 % Eosinophils % 0.6 % Basophils % 0.5 % Neutrophils # 9.4 H (1.6-8.9) K/mcL Lymphocytes # 1.1 (0.6-4.6) K/mcL Monocytes # 0.7 (0.0-1.3) K/mcL Eosinophils # 0.1 (0.0-0.6) K/mcL Basophils # 0.1 (0.0-0.2) K/mcL Sodium 142 (136-145) mEq/L Potassium 3.7 (3.5-5.1) mEq/L Chloride 107 (98-107) mEq/L Carbon Dioxide 28 (23-29) mEq/L BUN 11 (8-23) mg/dL Creatinine 0.97 (0.70-1.30) mg/dL Est GFR ( Amer) > 60 (> 60) Est GFR (Non-Af Amer) > 60 (> 60) BUN/Creatinine Ratio 11 (6-26) Glucose 178 H (70-105) mg/dL Calculated Osmolality 298 (280-300) Calcium 9.3 (8.6-10.3) mg/dL Total Bilirubin 0.6 (0.3-1.0) mg/dL AST 13 (13-39) Units/L ALT 10 (7-52) Units/L Alkaline Phosphatase 115 H (34-104) Units/L Troponin I 0.03 (< 0.04) ng/mL Serum Total Protein 6.6 (6.4-8.9) g/dL Albumin 4.0 (3.5-5.7) g/dL Globulin 2.6 (2.4-3.5) g/dL Albumin/Globulin Ratio 1.5 (1.1-2.2) Lipase 16 (11-82) Units/L Attestation Statement - Attestation Attestation: I reviewed the residents documentation and agree with the PA assessment and plan of care. I have personally had face to face time with the patient. (Brief History, Brief Exam, and MDM) I personally supervised and was present for the pettit/critical portions of the following procedures completed by the resident: (add procedures performed here). 78 year old male presents to the ED with complaints of chest pain and has COPD but is not hypoxic. HEArt score of 5. WE will admit medicine. ASA and nitro therapy given. breathign treatment started
[2018-10-22] MEDS ORDERED: Nitroglycerin 1 INCH/GM PACKET TP ONE (09:09)
[2018-10-22 09:19] LABS: Chol/HDL Ratio 2.5 (0-4.9); Cholesterol 124 mg/dL (< 200); HDL Cholesterol 49 mg/dL (40-59); LDL Cholesterol,Calculated 61 mg/dL (0-99); Triglycerides 71 mg/dL (< 150)
[2018-10-22 10:26] LABS: Estimated Average Glucose 137 mg/dl
--- NOTE | 2018-10-22 10:34 | Internal Med History&Physical ---
Date of Encounter: 10/22/18 Time of Encounter: 10:25 Internal Medicine - H&P: HPI Chief complaint: chest pain Admitted From: Home Plans for Post Hospital Care: Home History of present illness: Mr. Lester is a 78 year old male recent CVA with newly discovered afib on Eliquis, HTN, GERD, chronic respiratory failure 2/2 COPD on 2L of oxygen outpatient presents with chest pain. Chest pain began at 4a.m. this morning and has been unremitting since then. The pain an 8 out of 10. Not relieved by nitroglycerin. Says pain is a pressure sensation in the right side of his chest. Does not radiate. Some associated shortness of breath. Does not know if it is related to eating because has not ate since last night. Has not had pain like this before. No history of MT but previous history of recently diagnosed stroke. Has been compliant with his medications. 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, left foot all toes amputated - Social History Smoking Status: Former smoker Smokeless Tobacco Status: Yes Alcohol use: none Drug use: none - Family History Brother Family Member Ethnicity: Non- Living Status: Hx Family Cancer: Yes Hx Family Endocrine Disorder: Yes (DM) Father Family Member Ethnicity: Non- Living Status: Hx Family Cardiac Disorders: Yes Hx Family Respiratory Disorders: Yes (Asthma) Hx Family Cancer: No Hx Family GI Disorders: No Hx Family Endocrine Disorder: No Hx Family Neuromuscular Disorders: No Hx Family Neurologic Disorders: No Hx Family HEENT Disorders: No Hx Family Autoimmune Disorders: No Mother Family Member Ethnicity: Non- Living Status: Hx Family Cardiac Disorders: No Hx Family Respiratory Disorders: No Hx Family Cancer: No Hx Family GI Disorders: No Hx Family Endocrine Disorder: No Hx Family Neuromuscular Disorders: No Hx Family Neurologic Disorders: No Hx Family HEENT Disorders: No Hx Family Autoimmune Disorders: No Internal Medicine - H&P: Meds Albuterol Neb [Proventil Neb] 2.5 mg IH TID PRN 05/12/16 [History] Citalopram Hydrobromide [Celexa] 40 mg PO DAILY 05/12/16 [History] Lisinopril [Zestril] 5 mg PO DAILY 05/12/16 [History] Umeclidinium Brm/Vilanterol Tr [Anoro Ellipta 62.5-25 Mcg INH] 1 puff IH DAILY 05/12/16 [History] Omeprazole [PriLOSEC] 40 mg PO DAILY #30 cap 05/14/16 [Rx] Acetaminophen [Pain Relief] 1,500 mg PO HS PRN 08/30/18 [History] Albuterol Sulfate [Ventolin Hfa] 2 puff IH Q4-6H PRN 08/30/18 [History] Fluticasone Furoate [Arnuity Ellipta] 1 puff IH DAILY 08/30/18 [History] Apixaban [Eliquis] 5 mg PO BID #60 tablet 09/03/18 [Rx] Atorvastatin [Lipitor] 80 mg PO HS #30 tablet 09/03/18 [Rx] Clopidogrel [Plavix] 75 mg PO DAILY #30 tablet 09/03/18 [Rx] Metoprolol [Lopressor] 12.5 mg PO BID #60 tablet 09/03/18 [Rx] Ranitidine HCl 150 mg PO DAILY 10/22/18 [History] Simvastatin 20 mg PO DAILY 10/22/18 [History] Allergy/AdvReac Type Severity Reaction Status Date / Time Penicillins AdvReac Rash Verified 02/28/18 12:27 Review of systems: General: Fevers / Chills / Weight loss / Night sweats Eyes: Blurry Vision / Change in Vision HENT: Ear Pain / Ear Drainage / Rhinorrhea / Throat Pain / Lymphadenopathy Cardiovascular: Chest Pain / Palpatations / Orthopnea / ALEJO / Weight gain Lungs: Dyspnea / Wheezing / Cough / Sputum production / Pleurisy Abdomen: Abdomen pain / Abdominal distention / Nausea / Vomiting / Diarrhea / Const : Dysuria / Urinary Frequency / Urinary Urgency / Hematuria Extremities: LE edema / Ext pain / Ext erythema Skin: Rashes / Abrasions / Contusions Psych: Hallucinations / Anxiety / Depression Neuro: Weakness / Numbness / Tingling / Facial Droop / Dysphagia - Constitutional Vitals: Temp Pulse Resp BP Pulse Ox 98 F 80 14 131/70 95 10/22/18 06:58 10/22/18 08:18 10/22/18 09:16 10/22/18 09:16 10/22/18 08:18 Exam: General: Ill-appearing and in no acute distress HEENT: No erythema of posterior pharynx. No exudates. Lymphatics: No mandibular or cervical lymphadenopathy Cardiovascular: RRR. No murmurs. No chest wall tenderness. Lungs: Clear to auscelltation bilaterally. Regular chest rise. Abdomen: Mild RUQ tenderness. No rebound or gaurding. Nl bowel sounds. Extremities: No edema. 2+ pulses radial and pedal pulses Skin: No rahses, abrasions, or contusions. Nl cap refill. Psych: Nl attention. A&Ox3 Neuro: director of application development II-XII intact. 5/5 strength. Sensation to light touch and pinprick intact. Internal Med - H&P Results - Labs CBC & Chem 7: 10/22/18 07:20 10/22/18 07:20 Labs: Short CBC 10/22/18 Range/Units 07:20 WBC 11.3 H (4.3-11.1) K/mcL Hgb 12.6 L (12.9-16.9) g/dL Hct 38.9 (37.5-50.1) % Plt Count 194 (140-400) K/mcL Neutrophils # 9.4 H (1.6-8.9) K/mcL BMP 10/22/18 07:20 Sodium 142 Potassium 3.7 Chloride 107 Carbon Dioxide 28 BUN 11 Creatinine 0.97 Glucose 178 H Calcium 9.3 Cardiac Enzymes 10/22/18 Range/Units 07:20 Troponin I 0.03 (< 0.04) ng/mL Liver Function 10/22/18 Range/Units 07:20 Total Bilirubin 0.6 (0.3-1.0) mg/dL AST 13 (13-39) Units/L ALT 10 (7-52) Units/L Alkaline Phosphatase 115 H (34-104) Units/L Albumin 4.0 (3.5-5.7) g/dL - Impressions ITS Impressions Chest X-Ray 10/22/18 08:10 IMPRESSION: 1. Cardiomegaly and mild COPD. No acute cardiopulmonary process. 2. Moderate hiatal hernia. D/ / 10/22/2018 08:45:25 Steve Malhotra MD / ying Interpreting Provider: Steve Malhotra MD - Assessment and Plan (1) Chest pain Current Visit: Yes Status: Acute Assessment and plan: Patient with multiple CAD risk factors presents with chest pain in the setting of stable vitals, right upper quadrant tenderness on physical exam, neg initial trop, alk phos of 115, no EKG changes, and negative CXR. -High enough risk for ACS to necessitate inpatient workup Risk factors include recent stroke, hypertension, prediabetes -Low concern for PE at this time given no worsening hypoxia or tachycardia -Has right upper quadrant tenderness on exam with elevated alkaline phosphatase so will obtain right upper quadrant ultrasound as well PLAN: - S/p ASA 324mg. Will schedule ASA 81mg qd until ACS ruled out - Trend troponins - Inpatient stress test scheduled for tomorrow - NPO@MN - Nitroglycerin paste for pain control - if doesn't work can try morphine - Telemetry - RUQ Qualifiers: Chest pain type: other chest pain Qualified Code(s): R07.89 - Other chest pain; R07.8 - Other chest pain (2) History of CVA (cerebrovascular accident) without residual deficits Current Visit: No Status: Acute Assessment and plan: Hx of recent CVA with newly discovered afib on Eliquis. Patient was started on Plavix as well before afib was discovered and this was continued at discharge. This is not medically indicated given CVA 2/2 afib and patient should continue on only Eliquis. - D/c Plavix - Continue Eliquis (3) Pre-diabetes Current Visit: Yes Status: Acute Assessment and plan: HgA1c of 6.4. Hyperglycemic here. - LDSS - Diabetic diet (4) COPD (chronic obstructive pulmonary disease) Current Visit: No Status: Chronic Assessment and plan: With associated chronic respiratory failure on 2 L oxygen outpatient. No wheezing on physical exam. - Continue home medications Qualifiers: COPD type: unspecified COPD Qualified Code(s): J44.9 - Chronic obstructive pulmonary disease, unspecified (5) HTN (hypertension) Current Visit: No Status: Chronic Assessment and plan: Continue home medications Qualifiers: Hypertension type: essential hypertension Qualified Code(s): I10 - Essential (primary) hypertension
[2018-10-22] MEDS ORDERED: Dextrose Gel 15 GM/37.5 ML TUBE PO PRN (10:50)
[2018-10-22] MEDS ORDERED: Albuterol 2.5 MG/3 ML NEBULIZER IH PRN (10:51)
[2018-10-22] MEDS: Insulin LISPRO 300 UNITS/3 ML VIAL SQ SCH ×4 (12:19→20:26)
[2018-10-22] MEDS ORDERED: Morphine Sulfate 2 MG/ML SYRINGE IVP PRN (14:49)
[2018-10-22] MEDS: Ipratropium/Albuterol Neb 3 ML IH SCH ×2 (15:43→21:27)
[2018-10-22] MEDS ORDERED: *HR* Metoprolol 5 MG/5 ML VIAL IVP ONE (19:05)
[2018-10-22] MEDS: Apixaban 5 MG TABLET PO SCH (20:26)
[2018-10-23 02:12] LABS: Basophils # 0.1 K/mcL (0.0-0.2); Basophils % 0.4 %; Eosinophils % 0.1 %; Hematocrit 40.6 % (37.5-50.1); Hemoglobin 13.2 g/dL (12.9-16.9); Immature Granulocytes % 0.5 % (0-4); Lymphocytes # 0.9 K/mcL (0.6-4.6); Lymphocytes % 5.6 %; Mean Corpuscular HGB Conc 32.5 g/dL (31.6-35.5); Mean Corpuscular Hemoglobin 29.1 pg (28.0-33.3); Mean Corpuscular Volume 89.4 fL (83.0-100.0); Mean Platelet Volume 10.7 fL (9.4-12.4); Monocytes # 1.3 K/mcL (0.0-1.3); Monocytes % 7.8 %; Neutrophils # 14.2 K/mcL (1.6-8.9); Platelet Count 227 K/mcL (140-400); Red Blood Count 4.54 M/mcL (4.19-5.50); Red Cell Distribution Width 13.6 % (11.5-14.5); Segmented Neutrophils % 85.6 %; White Blood Count 16.5 K/mcL (4.3-11.1)
[2018-10-23 02:31] LABS: BUN/Creatinine Ratio 11 (6-26); Blood Urea Nitrogen 9 mg/dL (8-23); Calcium 9.3 mg/dL (8.6-10.3); Carbon Dioxide 24 mEq/L (23-29); Chloride 102 mEq/L (98-107); Glucose 135 mg/dL (70-105); Osmolality,Calculated 287 (280-300); Potassium 3.7 mEq/L (3.5-5.1); Sodium 138 mEq/L (136-145); eGFR For African Americans > 60 (> 60); eGFR For Non-African Americans > 60 (> 60)
[2018-10-23] MEDS: Ipratropium/Albuterol Neb 3 ML IH SCH ×3 (03:39→15:28)
[2018-10-23] MEDS ORDERED: Regadenoson 0.4 MG/5 ML SYRINGE IVP ONE (06:21)
[2018-10-23] MEDS ORDERED: Aspirin 81 MG TAB.CHEW PO SCH (09:00)
[2018-10-23] MEDS: Apixaban 5 MG TABLET PO SCH (09:13)
[2018-10-23] MEDS: Insulin LISPRO 300 UNITS/3 ML VIAL SQ SCH ×4 (09:15→20:26)
--- NOTE | 2018-10-23 13:13 | Electrocardiograph Report ---
[address] [place] [address] Test Date: 2018-10-22 Pat Name: Harmeet Lester Department: [id number] Room: 3B22 Gender: M Rodbuster: : 1940 Requested By: Amor Al Order Number: [id number] Reading MD: Roberto Valdivia Measurements Intervals [place] Rate: 66 P: 45 SD: 151 QRS: 43 QRSD: 97 T: 17 QT: 440 QTc: 461 Interpretive Statements Sinus arrhythmia Low voltage, precordial leads Electronically Signed On 10-23-2018 13:11:49 EDT by Roberto Valdivia
--- NOTE | 2018-10-23 13:31 | Electrocardiograph Report ---
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
--- NOTE | 2018-10-23 13:47 | Internal Med Progress Note ---
Hospitalist Progress Note - Encounter Date of Encounter: 10/23/18 Time of Encounter: 10:00 - Subjective Interval History: Mr. Lester is a 78 year old male recent CVA with newly discovered afib on Eliquis, HTN, GERD, chronic respiratory failure 2/2 COPD on 2L of oxygen pt presented to ER with epigastric pain radiating to his RUQ of Abd. He also c/o some chest discomfort. His initial troponin was negative. His EKG did not show any acute ischemic changes. Was under the hospital and placed him on night monitor. His serial troponin came back as negative. He denied any CP / SOB. His RUQ abd pain also better today. - Exam Vitals: Temp Pulse Resp BP Pulse Ox 99.3 F 82 16 145/75 96 10/23/18 11:10 10/23/18 11:10 10/23/18 11:10 10/23/18 11:10 10/23/18 11:10 Exam: Gen: Alert, awake, Oriented to time,place and person Chest: Diminished breath sounds B/L, No wheezing, No crackles, No rales Heart: S1S2+ RRR No murmurs Abd: Soft, NT, BS +, No organomegaly Ext: No edema, pulses are palpable, No calf tenderness Neuro : No acute focal neuro deficits noticed Skin: No rash. - Assessment and Plan (1) Chest pain Current Visit: Yes Status: Acute Assessment and Plan: Serial trop x 3 negative No acute ischemic changes on EKG He did go for nuclear stress test.. His nuclear stress test came back Mild mid- basal inferolateral ischemia on perfusion study (reversible mid-basal inferolateral perfusion defect of small size and mild intensity, SDS = 3) . No infarct on perfusion study. Cont home med ASA, Statin and Metoprolol will consult cardilogy for further eval...since he may need card clearance for cholecystectomy (2) RUQ abdominal pain Current Visit: Yes Status: Acute Assessment and Plan: His US of Abd showed gallbladder sludge He did c/o RUQ abd pain..Consulted surgery for further eval (3) History of CVA (cerebrovascular accident) without residual deficits Current Visit: No Status: Acute Assessment and Plan: on ASA + Eliquis and Statin (4) Pre-diabetes Current Visit: Yes Status: Acute Assessment and Plan: HgA1c of 6.4. Hyperglycemic here. ADA diet on ISS (5) COPD (chronic obstructive pulmonary disease) Current Visit: No Status: Chronic Assessment and Plan: Stable not in exacerbation he does have chronic hypoxic respiratory failure continue current home regimen (6) HTN (hypertension) Current Visit: No Status: Chronic Assessment and Plan: Continue home medications - Time Spent with Patient Total time spent is greater than 50% in coordination of care (as documented) at patient's floor/unit and/or counseling patient: Internal Medicine: Result - Labs CBC & Chem 7: 10/23/18 01:10 10/23/18 01:10 Labs: Short CBC 10/23/18 Range/Units 01:10 WBC 16.5 H (4.3-11.1) K/mcL Hgb 13.2 (12.9-16.9) g/dL Hct 40.6 (37.5-50.1) % Plt Count 227 (140-400) K/mcL Neutrophils # 14.2 H (1.6-8.9) K/mcL BMP 10/23/18 01:10 Sodium 138 Potassium 3.7 Chloride 102 Carbon Dioxide 24 BUN 9 Creatinine 0.80 Glucose 135 H Calcium 9.3 - Impressions Impressions Chest X-Ray 10/22/18 08:10 IMPRESSION: 1. Cardiomegaly and mild COPD. No acute cardiopulmonary process. 2. Moderate hiatal hernia. D/ / 10/22/2018 08:45:25 Steve Malhotra MD / ying Interpreting Provider: Steve Malhotra MD Abdomen Ultrasound 10/23/18 09:01 IMPRESSION: 1. Gallbladder sludge. No evidence of acute cholecystitis. 2. Hepatic steatosis. D/ / Dale Gilmore MD / Dale Gilmore MD Interpreting Provider: Dale Gilmore MD Consult Discharge Plan - Plan Instructions: Chest Pain (DC), Cholecystitis (DC) (1) Chest pain Qualifiers: Chest pain type: other chest pain Qualified Code(s): R07.89 - Other chest pain; R07.8 - Other chest pain (5) COPD (chronic obstructive pulmonary disease) Qualifiers: COPD type: unspecified COPD Qualified Code(s): J44.9 - Chronic obstructive pulmonary disease, unspecified (6) HTN (hypertension) Qualifiers: Hypertension type: essential hypertension Qualified Code(s): I10 - Essential (primary) hypertension
[2018-10-23] MEDS ORDERED: *HR* OxyCODONE/APAP 5/325 TABLET PO PRN (14:28)
--- NOTE | 2018-10-23 14:35 | AcuteCare Surgery Consult Note ---
Date of Encounter: 10/23/18 Time of Encounter: 14:30 Assessment and Plan (1) Acute cholecystitis due to biliary calculus Current Visit: Yes Status: Acute Pt diagnosis of acute cholecystitis with symptomatic cholelithiasis is discussed. Laparoscopic Cholecystectomy is recommended. Procedure for the surgery, risks and benefits are discussed in detail. Possible known complications for Laparoscopic Cholecystectomy are bleeding, infection, bile duct injury, bile leak, small intestine or stomach injury, stroke, DVT/PE, LA or . Pt understands these risks, which in this case are moderate. Pt wishes to proceed with surgery as soon as possible. Informed consent is obtained. Pt condition is stable. Surgery is scheduled. (2) Chest pain Current Visit: Yes Status: Acute Qualifiers: Qualified Code(s): R07.9 - Chest pain, unspecified History of Present Illness Consult date: 10/23/18 Reason for consult: gallstones Requesting physician: Elian Wilson History of present illness: This 78 y/o pt presents to [facility] ED complaining of chest pain. Cardiac work-up is negative. Today he c/o RUQ abdominal pain. Pt reports pain is severe and unrelenting. Pt reports the pain is progressively worsening. Pt reports pain radiates to back and up to right shoulder. Pt reports associated nausea and vomiting. Pt denies CP or SOB. Denies fever. 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, left foot all toes amputated - Social History Smoking Status: Former smoker Smokeless Tobacco Status: Yes (Pouches use daily) Alcohol use: none Drug use: none - Family History Brother Family Member Ethnicity: Non- Living Status: Hx Family Cancer: Yes Hx Family Endocrine Disorder: Yes (DM) Father Family Member Ethnicity: Non- Living Status: Hx Family Cardiac Disorders: Yes Hx Family Respiratory Disorders: Yes (Asthma) Hx Family Cancer: No Hx Family GI Disorders: No Hx Family Endocrine Disorder: No Hx Family Neuromuscular Disorders: No Hx Family Neurologic Disorders: No Hx Family HEENT Disorders: No Hx Family Autoimmune Disorders: No Mother Family Member Ethnicity: Non- Living Status: Hx Family Cardiac Disorders: No Hx Family Respiratory Disorders: No Hx Family Cancer: No Hx Family GI Disorders: No Hx Family Endocrine Disorder: No Hx Family Neuromuscular Disorders: No Hx Family Neurologic Disorders: No Hx Family HEENT Disorders: No Hx Family Autoimmune Disorders: No Medications and Allergies Albuterol Neb [Proventil Neb] 2.5 mg IH TID PRN 05/12/16 [History] Citalopram Hydrobromide [Celexa] 40 mg PO DAILY 05/12/16 [History] Lisinopril [Zestril] 5 mg PO DAILY 05/12/16 [History] Umeclidinium Brm/Vilanterol Tr [Anoro Ellipta 62.5-25 Mcg INH] 1 puff IH BID PRN 05/12/16 [History] Omeprazole [PriLOSEC] 40 mg PO DAILY #30 cap 05/14/16 [Rx] Acetaminophen [Pain Relief] 1,500 mg PO HS PRN 08/30/18 [History] Albuterol Sulfate [Ventolin Hfa] 2 puff IH Q4-6H PRN 08/30/18 [History] Fluticasone Furoate [Arnuity Ellipta] 1 puff IH DAILY PRN 08/30/18 [History] Apixaban [Eliquis] 5 mg PO BID #60 tablet 09/03/18 [Rx] Atorvastatin [Lipitor] 80 mg PO HS #30 tablet 09/03/18 [Rx] Clopidogrel [Plavix] 75 mg PO DAILY #30 tablet 09/03/18 [Rx] Metoprolol [Lopressor] 12.5 mg PO BID #60 tablet 09/03/18 [Rx] raNITIdine HCl [Zantac] 150 mg PO QPM 10/22/18 [History] Allergy/AdvReac Type Severity Reaction Status Date / Time Penicillins AdvReac Rash Verified 02/28/18 12:27 Review of Systems All systems PM: The remainder of the systems were reviewed and are negative - Constitutional as per HPI, anorexia, fatigue, weakness, no chills, no fever(s), no night sweats - EENT Nose, mouth and throat: no dizziness, no dry mouth, no dysphagia, no nasal congestion, no nasal discharge, no sinus pain, no sinus pressure, no sore throat - Cardiovascular chest pain, no diaphoresis, no dyspnea, no edema - Respiratory no cough, no dyspnea, no wheezing - Gastrointestinal abdominal pain, belching, bloating, heartburn, nausea, no constipation, no diarrhea, no vomiting - Genitourinary no dysuria, no hematuria, no urinary frequency - Musculoskeletal back pain, no joint swelling, no limited range of motion, no neck pain - Integumentary no dry skin, no pruritus, no rash, no wounds, no jaundice - Neurological weakness, no confusion, no dizziness, no focal weakness - Psychiatric no anxiety, no depression - Endocrine no fatigue - Hematologic/Lymphatic no easy bleeding, no easy bruising General Surgery Exam Initial Vital Signs Temp Pulse Resp BP Pulse Ox 98 F 64 14 181/90 97 10/22/18 06:58 10/22/18 06:58 10/22/18 06:58 10/22/18 06:58 10/22/18 06:58 - General physical appearance moderate pain. negative: well nourished, no distress, jaundice - Eyes PERRL, normal ocular movement. negative: icteric - ENT no congestion, dry mucosa. negative: nasal discharge - Neck trachea midline, no venous distension - Respiratory normal respiratory effort, clear to auscultation - Cardiovascular Cardiovascular exam: Present: RRR. Absent: JVD - Abdomen Abdomen general surgery: Present: bowel sounds present, soft, distended, tender, guarding. Absent: rebound, rigid Abdominal Tenderness: Present: RUQ - Genitourinary Present: normal penis with no external lesions - Integumentary Integumentary general surgery: Present: warm and dry - Neurologic Present: CN 2-12 grossly intact, normal coordination - Musculoskeletal Present: normal posture - Psychiatric Psychiatric general surgery: Present: A&Ox3, appropriate Exam Initial Vital Signs Temp Pulse Resp BP Pulse Ox 98 F 64 14 181/90 97 10/22/18 06:58 10/22/18 06:58 10/22/18 06:58 10/22/18 06:58 10/22/18 06:58 Results - Labs 10/23/18 01:10 10/23/18 01:10 Abnormal lab results WBC 16.5 K/mcL (4.3-11.1) H 10/23/18 01:10 Hgb 12.6 g/dL (12.9-16.9) L 10/22/18 07:20 Neutrophils # 14.2 K/mcL (1.6-8.9) H 10/23/18 01:10 Glucose 135 mg/dL (70-105) H 10/23/18 01:10 POC Glucose 123 mg/dL (70-99) H 10/22/18 16:12 Hemoglobin A1c 6.4 % (-5.6) H 10/22/18 07:20 Alkaline Phosphatase 115 Units/L (34-104) H 10/22/18 07:20 B-Natriuretic Peptide 121 pg/mL (Less than 100) H 10/22/18 07:20 Diabetes panel 10/23/18 Range/Units 01:10 Sodium 138 (136-145) mEq/L Potassium 3.7 (3.5-5.1) mEq/L Chloride 102 (98-107) mEq/L Carbon Dioxide 24 (23-29) mEq/L BUN 9 (8-23) mg/dL Creatinine 0.80 (0.70-1.30) mg/dL Glucose 135 H (70-105) mg/dL Calcium 9.3 (8.6-10.3) mg/dL Calcium panel 10/23/18 Range/Units 01:10 Calcium 9.3 (8.6-10.3) mg/dL Pituitary panel 10/23/18 Range/Units 01:10 Sodium 138 (136-145) mEq/L Potassium 3.7 (3.5-5.1) mEq/L Chloride 102 (98-107) mEq/L Carbon Dioxide 24 (23-29) mEq/L BUN 9 (8-23) mg/dL Creatinine 0.80 (0.70-1.30) mg/dL Glucose 135 H (70-105) mg/dL Calcium 9.3 (8.6-10.3) mg/dL Adrenal panel 10/23/18 Range/Units 01:10 Sodium 138 (136-145) mEq/L Potassium 3.7 (3.5-5.1) mEq/L Chloride 102 (98-107) mEq/L Carbon Dioxide 24 (23-29) mEq/L BUN 9 (8-23) mg/dL Creatinine 0.80 (0.70-1.30) mg/dL Glucose 135 H (70-105) mg/dL Calcium 9.3 (8.6-10.3) mg/dL All other labs normal. - Imaging US - abdomen: image reviewed (+gallbladder sludge) Consult Discharge Plan - Plan Instructions: Chest Pain (DC), Cholecystitis (DC) Referrals: Yoan Dudley MD [Non-Partnered Physician] - 10/30/18 11:00 am
[2018-10-23] MEDS: levoFLOXacin 500 MG/100 ML 500 MG/100 ML BAG IVPB SCH (15:56)
[2018-10-23] MEDS: Famotidine 20 MG TABLET PO SCH (17:05)
[2018-10-23] MEDS: MetroNIDAZOLE 500 MG/100 ML 500 MG/100 ML BAG IVPB SCH ×2 (17:05→23:23)
[2018-10-23] MEDS ORDERED: Ipratropium/Albuterol Neb 3 ML IH PRN (21:55)
[2018-10-24] MEDS: MetroNIDAZOLE 500 MG/100 ML 500 MG/100 ML BAG IVPB SCH ×4 (05:43→23:15)
[2018-10-24 05:50] LABS: Hematocrit 40.8 % (37.5-50.1); Hemoglobin 13.3 g/dL (12.9-16.9); Mean Corpuscular HGB Conc 32.6 g/dL (31.6-35.5); Mean Corpuscular Hemoglobin 28.5 pg (28.0-33.3); Mean Corpuscular Volume 87.4 fL (83.0-100.0); Mean Platelet Volume 10.6 fL (9.4-12.4); Platelet Count 238 K/mcL (140-400); Red Blood Count 4.67 M/mcL (4.19-5.50); Red Cell Distribution Width 13.8 % (11.5-14.5); White Blood Count 17.4 K/mcL (4.3-11.1)
[2018-10-24 06:13] LABS: BUN/Creatinine Ratio 16 (6-26); Blood Urea Nitrogen 13 mg/dL (8-23); Calcium 9.4 mg/dL (8.6-10.3); Carbon Dioxide 25 mEq/L (23-29); Chloride 102 mEq/L (98-107); Glucose 137 mg/dL (70-105); Osmolality,Calculated 286 (280-300); Potassium 3.6 mEq/L (3.5-5.1); Sodium 137 mEq/L (136-145); eGFR For African Americans > 60 (> 60); eGFR For Non-African Americans > 60 (> 60)
[2018-10-24] MEDS: Insulin LISPRO 300 UNITS/3 ML VIAL SQ SCH ×4 (07:15→19:57)
--- NOTE | 2018-10-24 08:20 | Cardiology Consult Note ---
Date of Encounter: 10/24/18 Time of Encounter: 10:23 Assessment and Plan (1) Abnormal nuclear stress test Current Visit: Yes Status: Acute Nuclear stress test showed mild reversible mid-basal inferolateral ischemia on perfusion study. There was no infarct present. Stress LVEF >70%. Pharmacologic stress ECG was non-diagnostic for ischemia. -Plan for cardiac catheterization today -Will begin heparin or Lovenox after catheterization (2) Preoperative cardiovascular examination Current Visit: Yes Status: Acute Mr. Lester needs preoperative cardiac clearance for laparoscopic cholec ystectomy -Patient had abnormal nuclear stress test; results referenced above. -RCRI was 3 points for Class IV risk, with points for intraperitoneal surgery, positive stress test, and history of CVA -History of atrial fibrillation confers additional risk -Recommend postponement of cholecystectomy due to ongoing dyspnea, atrial fibrillation, rising leukocytosis without source -Cardiac catheterization today (3) Atrial fibrillation Current Visit: Yes Status: Acute This is still present on telemetry. -Recommend bridging with Lovenox or heparin while off Eliquis -Continue metoprolol Qualifiers: Atrial fibrillation type: unspecified Qualified Code(s): I48.91 - Unspecified atrial fibrillation Discussion w patient/family: The assessment and plan as outlined above was discussed with the patient and/or family members who expressed understanding and agreement. All questions were answered. Thank you for involving us in the care of your patient. Please call with any questions. History of Present Illness Consult date: 10/23/18 Requesting physician: Elian Wilson Consult reason: cardiac clearance for cholecystectomy Chief complaint: chest pain, cholecystitis History of present illness: Mr. Lester is a 78 year old male who we are consulted for preoperative clearance for cholecystectomy in context of abnormal stress test and recent CVA on 07/30 and atrial fibrillation on Eliquis. He is also on home oxygen for COPD. Patient presented to ED on 10/22 with nonradiating right and middle chest pain with dyspnea. He denied nausea, vomiting, cough, chills, fever. Pain did not resolve with nitroglycerin. Troponins x3 were negative and ECG showed no acute ischemic changes. An ultrasound of abdomen showed gallbladder sludge. Surgery recommends laparoscopic cholcystectomy for acute cholecystitis. Nuclear stress test revealed mild reversible mid-basal inferolateral ischemia on perfusion study. There was no infarct. Stress LVEF was >70%. Pharmacologic stress ECG was non-diagnostic for ischemia. ECG on 10/22 showed atrial fibrillation with rapid ventricular response. 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, left foot all toes amputated - Social History Smoking Status: Former smoker Smokeless Tobacco Status: Yes (Pouches use daily) Alcohol use: none Drug use: none - Family History Brother Family Member Ethnicity: Non- Living Status: Hx Family Cancer: Yes Hx Family Endocrine Disorder: Yes (DM) Father Family Member Ethnicity: Non- Living Status: Hx Family Cardiac Disorders: Yes Hx Family Respiratory Disorders: Yes (Asthma) Hx Family Cancer: No Hx Family GI Disorders: No Hx Family Endocrine Disorder: No Hx Family Neuromuscular Disorders: No Hx Family Neurologic Disorders: No Hx Family HEENT Disorders: No Hx Family Autoimmune Disorders: No Mother Family Member Ethnicity: Non- Living Status: Hx Family Cardiac Disorders: No Hx Family Respiratory Disorders: No Hx Family Cancer: No Hx Family GI Disorders: No Hx Family Endocrine Disorder: No Hx Family Neuromuscular Disorders: No Hx Family Neurologic Disorders: No Hx Family HEENT Disorders: No Hx Family Autoimmune Disorders: No Medications and Allergies Albuterol Neb [Proventil Neb] 2.5 mg IH TID PRN 05/12/16 [History] Citalopram Hydrobromide [Celexa] 40 mg PO DAILY 05/12/16 [History] Lisinopril [Zestril] 5 mg PO DAILY 05/12/16 [History] Umeclidinium Brm/Vilanterol Tr [Anoro Ellipta 62.5-25 Mcg INH] 1 puff IH BID PRN 05/12/16 [History] Omeprazole [PriLOSEC] 40 mg PO DAILY #30 cap 05/14/16 [Rx] Acetaminophen [Pain Relief] 1,500 mg PO HS PRN 08/30/18 [History] Albuterol Sulfate [Ventolin Hfa] 2 puff IH Q4-6H PRN 08/30/18 [History] Fluticasone Furoate [Arnuity Ellipta] 1 puff IH DAILY PRN 08/30/18 [History] Apixaban [Eliquis] 5 mg PO BID #60 tablet 09/03/18 [Rx] Atorvastatin [Lipitor] 80 mg PO HS #30 tablet 09/03/18 [Rx] Clopidogrel [Plavix] 75 mg PO DAILY #30 tablet 09/03/18 [Rx] Metoprolol [Lopressor] 12.5 mg PO BID #60 tablet 09/03/18 [Rx] raNITIdine HCl [Zantac] 150 mg PO QPM 10/22/18 [History] Allergy/AdvReac Type Severity Reaction Status Date / Time Penicillins AdvReac Rash Verified 02/28/18 12:27 All Systems Review: The remainder of the systems were reviewed and are negative - Constitutional Constitutional: headache(s), no weakness - EENT Eyes: no blurred vision Ears: bilateral: hearing loss - Cardiovascular Cardiovascular: dyspnea at rest, dyspnea on exertion, palpitations, rapid heart rate, no chest pain at rest, no leg edema - Respiratory Respiratory: dyspnea - Gastrointestinal Gastrointestinal: abdominal pain, no constipation, no diarrhea, no nausea - Genitourinary Genitourinary: no dysuria - Musculoskeletal Musculoskeletal: no muscle weakness - Integumentary Integumentary: no unusual bruising - Neurological Neurological: focal weakness (droop of left mouth), no dizziness - Psychiatric Psychiatric: no depression - Hematological/Lymphatic Hematologic/Lymphatic: no easy bleeding, no easy bruising Physical Examination Vital Signs, Last 4 Hours Temp Pulse Resp BP 10/24/18 06:55 99.0 F 91 18 133/77 Other: GENERAL: awake, somewhat poor historian HENT: normocephalic, atraumatic, moist mucosa EYES: anicteric, clear sclerae, pupils equal and reactive to light NECK: no carotid bruits heard CV: irregular rhythm, tachycardic. No murmurs heard RESPIRATORY: diffuse intermittent rhonchi and inspiratory wheezes. No rales heard GI: soft, mild RUQ tenderness, nondistended. Normal bowel sounds present EXTREMITIES: peripheral pulses 2+/4, no edema, no cyanosis SKIN: some small skin lesions on right ankle, otherwise no rashes or lesions Results 10/24/18 04:49 10/24/18 04:49 Lab Results 10/24/18 10/24/18 04:49 04:49 WBC 17.4 H Hgb 13.3 Hct 40.8 Plt Count 238 Sodium 137 Potassium 3.6 Chloride 102 Carbon Dioxide 25 BUN 13 Creatinine 0.83 Glucose 137 H Calcium 9.4 - Imaging and Cardiology Stress Test: report reviewed Consult Discharge Plan - Plan Instructions: Chest Pain (DC), Cholecystitis (DC) Referrals: Yoan Dudley MD [Non-Partnered Physician] - 10/30/18 11:00 am
[2018-10-24] MEDS ORDERED: 0.9 % Sodium Chloride 1,000 ML ONE ×2 (09:14→12:03)
[2018-10-24] MEDS ORDERED: Heparin 1,000 UNITS/500 mL 500 ML ONE (12:03)
[2018-10-24] MEDS ORDERED: *HR* Heparin 10,000 UNIT/10 ML VIAL ONE (12:03)
[2018-10-24] MEDS ORDERED: Nitroglycerin 1,000 MCG/10 ML VIAL IV ONE (12:04)
[2018-10-24] MEDS ORDERED: Iopamidol 125 ML INFUS..BTL ONE (12:04)
--- NOTE | 2018-10-24 12:09 | Pre-Sedation Evaluation ---
Pre-sedation evaluation - Pre-sedation checklist Date of procedure: 10/24/18 Procedure: heart cath Recent Vitals: Last Vital Signs Temp 97.7 F 10/24/18 12:00 Pulse 98 10/24/18 12:00 Resp 20 10/24/18 12:00 BP 128/84 10/24/18 12:00 Pulse Ox 94 10/24/18 12:00 H&P (including ROS) documented in medical record: Yes Previous reaction to sedatives/anesthetics: No Dietary Status: NPO after Midnight Airway Assessment: Patient can open mouth completely, TMJ function normal, Micrognathia (under-bite, receding chin) absent, Neck with adequate range of motion Dentition: dentures removed Possible difficult airway: No ASA Classification *see protocol: CLASS II-Mild systemic disease Plan of Care: Pt appropriate candidate for procedure/moderate/conscious sedation, Risks/benefits of procedure/sedation discussed w/ patient/family Cardiac Registry (Cardio Only) - Functional Capacity Functional Capacity: < 4 METS - Clincal Frailty Scale Clinical Frailty Scale: Vulnerable
--- NOTE | 2018-10-24 12:14 | Acute Care Surgery Event Note ---
Date of Encounter: 10/24/18 Time of Encounter: 12:00 Pt seen by cardiology today. Pt complaining of chest pain and SOB. Cardiology recommends cardiac catheterization prior to lap ranjana. Will postpone Lap ranjana until after catheterization. Will continue to treat acute cholecystitis with IV abx. White count continues to elevate. Will follow.
[2018-10-24] MEDS ORDERED: *HR* FentaNYL (PF) 100 MCG/2 ML VIAL ONE ×2 (12:40→13:38)
[2018-10-24] MEDS ORDERED: *HR* Midazolam HCl 2 MG/2 ML VIAL ONE (12:40)
--- NOTE | 2018-10-24 12:59 | Internal Med Progress Note ---
Hospitalist Progress Note - Encounter Date of Encounter: 10/24/18 Time of Encounter: 10:30 - Subjective Interval History: Pt was seen and examined at bed side. Today he is c/o RUQ abd pain. He also c/o SOB and mild ALEJO. Denied any CP - Exam Vitals: Temp Pulse Resp BP Pulse Ox 97.7 F 98 20 128/84 94 10/24/18 12:00 10/24/18 12:00 10/24/18 12:00 10/24/18 12:00 10/24/18 12:00 Exam: Gen: Alert, awake, Oriented to time,place and person Chest: Diminished breath sounds B/L, No wheezing, No crackles, No rales Heart: S1S2+ Afib, No murmurs Abd: Soft, Mild discomfort in RUQ, BS +, No organomegaly Ext: No edema, pulses are palpable, No calf tenderness Neuro : No acute focal neuro deficits noticed Skin: No rash. - Assessment and Plan (1) Chest pain Current Visit: Yes Status: Acute Assessment and Plan: Serial trop x 3 negative No acute ischemic changes on EKG He did go for nuclear stress test.. His nuclear stress test came back Mild mid- basal inferolateral ischemia on perfusion study (reversible mid-basal inferolateral perfusion defect of small size and mild intensity, SDS = 3) . No infarct on perfusion study. Cont home med ASA, Statin and Metoprolol Cardiology evaluated the pt and recommend LHC (2) Abnormal nuclear stress test Current Visit: Yes Status: Acute Assessment and Plan: His stress test came back as mildly abnormal Card consulted.. Scheduled for LHC later today (3) RUQ abdominal pain Current Visit: Yes Status: Acute Assessment and Plan: His US of Abd showed gallbladder sludge He still c.o RUQ abd pain His WBC still trending high cont empirical abx Levaquin + Flagyl with concerns of acute cholecystitis cont symptomatic and supportive care started him on IV hydration Surgery on board.. appreciate recommendations Waiting for card clearance for lap ranjana (4) Atrial fibrillation Current Visit: Yes Status: Chronic Assessment and Plan: rate fairly controlled still going in and out Afib cont close monitoring on tele Inc his Metoprolol Held Eliquis for surgery will start him on Heparin gtt after LHC until he have lap ranjana done (5) History of CVA (cerebrovascular accident) without residual deficits Current Visit: No Status: Acute Assessment and Plan: on ASA + Eliquis and Statin (6) Pre-diabetes Current Visit: Yes Status: Acute Assessment and Plan: HgA1c of 6.4. Hyperglycemic here. ADA diet on ISS (7) COPD (chronic obstructive pulmonary disease) Current Visit: No Status: Chronic Assessment and Plan: Stable not in exacerbation he does have chronic hypoxic respiratory failure continue current home regimen (8) HTN (hypertension) Current Visit: No Status: Chronic Assessment and Plan: Continue home medications - Time Spent with Patient Total time spent is greater than 50% in coordination of care (as documented) at patient's floor/unit and/or counseling patient: Internal Medicine: Result - Labs CBC & Chem 7: 10/24/18 04:49 10/24/18 04:49 Labs: Short CBC 10/24/18 Range/Units 04:49 WBC 17.4 H (4.3-11.1) K/mcL Hgb 13.3 (12.9-16.9) g/dL Hct 40.8 (37.5-50.1) % Plt Count 238 (140-400) K/mcL BMP 10/24/18 04:49 Sodium 137 Potassium 3.6 Chloride 102 Carbon Dioxide 25 BUN 13 Creatinine 0.83 Glucose 137 H Calcium 9.4 - Impressions Impressions Chest X-Ray 10/24/18 10:29 IMPRESSION: Stable moderate hiatal hernia. No acute abnormality. D/ / 10/24/2018 11:41:26 Holger Haddad MD / Megha Hodge Interpreting Provider: Holger Haddad MD Consult Discharge Plan - Plan Instructions: Chest Pain (DC), Cholecystitis (DC) Referrals: Yoan Dudley MD [Non-Partnered Physician] - 10/30/18 11:00 am (1) Chest pain Qualifiers: Chest pain type: other chest pain Qualified Code(s): R07.89 - Other chest pain; R07.8 - Other chest pain (4) Atrial fibrillation Qualifiers: Atrial fibrillation type: persistent Qualified Code(s): I48.1 - Persistent atrial fibrillation (7) COPD (chronic obstructive pulmonary disease) Qualifiers: COPD type: unspecified COPD Qualified Code(s): J44.9 - Chronic obstructive pulmonary disease, unspecified (8) HTN (hypertension) Qualifiers: Hypertension type: essential hypertension Qualified Code(s): I10 - Essential (primary) hypertension
--- NOTE | 2018-10-24 13:34 | Invasive Diagnostic Lab Proc ---
Name: Harmeet Lester Date of Study: 10/24/2018 Date: 1940 Ht: 68.0in Medical Record#: [id number] Age: 78 Wt: 180.78lb Gender: Male BSA: 1.96 Order #: [id number] BMI: 27.49 Physicians Procedure Physician: Sabrina Olmedo MD, [facility] Referring MD: Referring MD: Staff Name Position Time In Sarai Livingstonci RN Monitor 12:48 PM Sai Hammond RT (R) Scrub 12:48 PM Debra Finn RT (R) Scrub 12:48 PM Dennis Campos RN Speeder Frame Tender 12:48 PM Indications Indication Other-Abnormal Test - Stress Procedures Performed Procedure L HRT ARTERY/VENTRICLE ANGIO Pre-Procedure Checklist Informed consent is complete signed and on chart. H&P is on chart. ID band is on and ID verified with patient. Patient NPO for procedure The procedure was described for the patient and questions were answered. Blood Pressure: 136/88 ECG is on chart. Plan of Care Patient will tolerate the procedure without complications. Adequate level of comfort will be maintained. Hemodynamics will remain stable Patient will recover from procedure without complications. Respiratory function will be maintained. Cardiac rhythm will remain stable. Patient temperature will be maintained. Patient and/or family have verbalized understanding of the procedure. Patient Education Chief Complaint/Reason for Test: Cardiac Cath Developmental Category: Geriatric (65+ years) Developmentally Appropriate for Age: Yes Learning Barriers: None Education Needs: Procedure Education Method: Verbal Information Taught: Cardiac Cath Educational Evaluation: Able to repeat information Intravenous Access Time IV Size Location DC'd Fluid/Drip Rate Units RN 18g 1 1/" Peripheral-Lock On Arrival 0.9NaCl ml/hr Allergies PCN (penicillin) Vital Signs Time BP (mmHg) HR (bpm) O2 Sat. RR (bpm) LOC 12:49 PM / % 5 = Fully awake and oriented or at pre-proc level 12:49 PM / % 4 = Oriented but drowsy 12:48 PM 136 / 88 97 94 % 26 12:53 PM 121 / 80 95 92 % 21 12:58 PM 122 / 76 84 88 % 23 01:04 PM 123 / 79 91 92 % 21 01:08 PM 121 / 79 90 92 % 20 01:13 PM 120 / 79 90 93 % 20 Procedural Medications Time Medication Dose Units Method Given By 12:48 PM Oxygen 2 L/min nasal cannula Dennis Campos RN 12:49 PM Versed 2 mg Intravenous Dennis Campos RN 12:49 PM Fentanyl 50 mcg Intravenous Dennis Campos RN 12:56 PM Lidocaine 2% 20 ml Subcutaneous Sabrina Olmedo MD, [facility] ASA Classification: CLASS II- Mild systemic disease (i.e. well-controlled diabetes, hypertension, asthma, cigarette smoking) Ghazal Score Preprocedure Postprocedure Activity 2- Moves 4 extremities sustained head lift Activity 2- Moves 4 extremities sustained head lift Circulation 2- SBP +/= 20 points of pre-anesthetic level Circulation 2- SBP +/= 20 points of pre-anesthetic level Consciousness 2- Awake and alert oriented x 3 Consciousness 2- Awake and alert oriented x 3 O2 Saturation 2- Able to maintain O2 satruation of 92% on room air O2 Saturation 2- Able to maintain O2 satruation of 92% on room air Respiratory 2- Able to deep breathe and cough well Respiratory 2- Able to deep breathe and cough well Total Score 10 Total Score 10 Contrast Agent: Isovue Diagnostic Contrast: 83 ml Total Contrast: 83 ml Fluoro Dose: 22 mGy Procedure Log Time Note Enter By 12:42 PM Pt arrived to sugar laboratory assistant 2 at 12:42 kmavis 12:42 PM Physician arrived 12:42 kmavis 12:42 PM Meet and greet completed kmavis 12:42 PM Sign in performed according to hospital policy. Informed consent was obtained. kmavis 12:47 PM CathStat 12:47 PM Vitals capture started with the following parameters, Patient=Adult, Interval=5 min, Initial Reuqedsh=763 mmHg, Deflation Rate=3 mmHg, Cuff placed on Right Arm 12:48 PM Izabela Livingston RN Position: Monitor Time in: 12:48 kmavis 12:48 PM Sai Hammond RT (R) Position: Scrub Time in: 12:48 kmavis 12:48 PM Debra Finn RT (R) Position: Scrub Time in: 12:48 kmavis 12:48 PM Dennis Campos RN Position: Speeder Frame Tender Time in: 12:48 kmavis 12:48 PM Patient charges- Angio tray pack, Navilyst 3mm J, Pulse Oximetry and ACIST tubing and transducer kmavis 12:48 PM Case Delayed No kmavis 12:48 PM Procedure start 12:48 kmavis 12:48 PM Hair removed from procedure site in procedure lab using clippers. Bilateral groin prepped with Chloraprep by Izabela Livingston RN, then patient was draped. Skin intact. kmavis 12:48 PM HR=97 bpm, BVOJ=689/88 mmhg, SpO2=94 %, Resp=26 B/min 12:49 PM Time: 12:48 Oxygen on at 2 L/min per nasal cannula by Dennis Campos RN kmavis 12:49 PM Time: 12:49 Patient comfortable and pain free: Yes kmavis 12:49 PM Time: 12:49LOC: 5 = Fully awake and oriented or at pre-proc level kmavis 12:49 PM Time: 12:49 Versed 2 mg Intravenous Given by Dennis Campos RN kmavis 12:49 PM Time: 12:49 Fentanyl 50 mcg Intravenous Given by Dennis Campos RN kmavis 12:52 PM ASA Class CLASS II- Mild systemic disease (i.e. well-controlled diabetes, hypertension, asthma, cigarette smoking) kmavis 12:53 PM HR=95 bpm, YCFI=472/80 mmhg, SpO2=92.0 %, Resp=21 B/min 12:54 PM Time out was performed according to hospital policy. Conscious sedation and anesthesia was achieved (see medication log with in this report above) kmavis 12:55 PM Pressure channel 1 zeroed. 12:56 PM Recorded ECG: HR=95 Condition=Condition 1 12:56 PM Time: 12:56 20 ml Lidocaine 2% to right groin Subcutaneous Given by Sabrina Olmedo MD, [facility] kmavis 12:57 PM Access obtained by percutaneous puncture. 5Fr 10cm Terumo Pace sheath placed in right Femoral artery. [id number] kmavis 12:57 PM 5Fr FL 4 catheter inserted over the wire [facility] kmavis 12:57 PM 0.035 145cm Navilyst 3mmJ wire [id number] kmavis 12:57 PM LCA angiography performed in multiple views. kmavis 12:57 PM Recorded Pressure: Ao, HR=95, Condition=Condition 1 (Aorta) Ao 106/75/90 12:58 PM HR=84 bpm, SIXI=367/76 mmhg, SpO2=88.0 %, Resp=23 B/min 12:59 PM Recorded Pressure: Ao, HR=87, Condition=Condition 1 (Aorta) Ao 102/78/90 12:59 PM Catheter removed kmavis 12:59 PM 5Fr FR 4 [facility] PM RCA angiography performed in multiple views. kmavis 01:01 PM Recorded Pressure: Ao, HR=91, Condition=Condition 1 (Aorta) Ao 107/81/95 01:01 PM Catheter removed kmavis 01:01 PM 5Fr Pigtail catheter inserted over the wire [facility] kmavis 01:02 PM Catheter crossed the aortic valve and was selectively placed in the left ventricle. Pressures recorded on pullback for left heart catheterization. avis 01:02 PM Pressure channel 1 zeroed. 01:03 PM Recorded Pressure: LV, HR=90, Condition=Condition 1 (Left Ventricle) LV 120/-14/0 01:03 PM Bolus angiogram of left Ventricle complete: 8 ml/sec for a total of 24 mls kmavis 01:03 PM Recorded Pressure: LV, Ao, HR=90, Condition=Condition 1 (Left Ventricle) LV 94/22/37, (Aorta) Ao 93/70/81 01:03 PM Catheter removed kmavis 01:03 PM Physician reviewing films avis 01:04 PM Time: 12:49 Patient comfortable and pain free: Yes avis 01:04 PM Time: 12:49LOC: 4 = Oriented but drowsy kmavis 01:04 PM HR=91 bpm, BAZW=815/79 mmhg, SpO2=92.0 %, Resp=21 B/min 01:08 PM HR=90 bpm, MHGS=523/79 mmhg, SpO2=92.0 %, Resp=20 B/min 01:10 PM Coronary Dominance: Left avis 01:10 PM Bolus angiogram of right Femoral complete: 4 ml/sec for a total of 7 mls avis 01:11 PM Procedure completed at 13:11 10/24/2018 avis 01:11 PM Did you address CASANDRA flow and Dominance? YesCoronary Dominance: Left avis 01:12 PM Sign out completed: Radiation Dose 182.92 mGy, 21.9 Gy/cm2 Fluoro Time: 1.4 Isovue 370 - 200ml contrast 83 ml given by Sabrina Olmedo MD, [facility]. Complications: None. 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 Sedation minutes 25. Cardiac Rehab Consult needed: No. Confirmed administered medications: Yes kmavis 01:12 PM Isovue 370 - 200ml,1 Bottle(s) used. kmavis 01:13 PM Arterial sheath pulled, Mynx closure device used and was Successful [id number] S/N. kmavis 01:13 PM Estimated Blood Loss: minimal kmavis 01:13 PM HR=90 bpm, KIZT=584/79 mmhg, SpO2=93.0 %, Resp=20 B/min 01:13 PM Post Blood Pressure 121/79 kmavis 01:13 PM Information taught Cardiac Cath kmavis 01:14 PM Education needs Procedure, Plan of Care, and Disease Process kmavis 01:14 PM Learning barriers :None kmavis 01:14 PM Education Methods Verbal kmavis 01:14 PM Education evaluation Able to repeat information kmavis 01:14 PM Site status No bleeding/ No Hematoma - Rt Groin as reported by Debra Finn RT (R) at 13:14 kmavis 01:14 PM Opsite applied kmavis 01:14 PM Plavix, Effient or Brilinta given No kmavis 01:14 PM Delay to floor No kmavis 01:15 PM Family placed in consult room. kmavis 01:15 PM Complications: None kmavis 01:19 PM Report given to Toña PRUITT Pt taken to 3B Room #22. 13:18 kmavis 01:20 PM Vitals capture stopped. 01:20 PM Coronary Dominance: Left kmavis 01:20 PM Lesion found in Mid RCA. Pre Stenosis: 60 Pre CASANDRA Flow: kmavis 01:20 PM Lesion found in Proximal LAD. Pre Stenosis: 50 Pre CASANDRA Flow: kmavis 01:21 PM Lesion found in 1st Diagonal. Pre Stenosis: 60 Pre CASANDRA Flow: kmavis 01:21 PM Lesion found in Proximal Circumflex. Pre Stenosis: 40 Pre CASANDRA Flow: kmavis 01:21 PM Lesion found in Mid Circumflex. Pre Stenosis: 30 Pre CASANDRA Flow: kmavis 01:21 PM Lesion found in Ramus. Pre Stenosis: 25 Pre CASANDRA Flow: kmavis 01:22 PM Patient out of room: 13:22 kmavis Complications Complication None None Hemodynamics Pressures Site Systolic/A Wave Diastolic/V Wave Mean AO 106 75 90 AO 102 78 90 AO 107 81 95 LV 120 -14 0 LV 94 22 37 AO 93 70 81 Post Procedure Information Blood Pressure: 121/79 mmHg Post procedural instructions were given Closure Device Time Device Success/Fail 10/24/2018 1:22:00 PM MynxGrip Successful Site Checks Time Location Status Staff Sheath In? Note 01:14 PM Rt Groin No bleeding/ No Hematoma Debra Finn RT (R) Pulses Time Site Pre-Procedure Post-Procedure Note Bilateral DP & PT 1+ Bilateral radial 2+ Updated by Izabela Livingston RN on 10/24/2018 1:25:40 PM electronically signed on 10/24/2018 1:26:06 PM with status of Final
[2018-10-24] MEDS ORDERED: *HR* Propofol 200 MG/20 ML VIAL IVP ONE (13:38)
[2018-10-24] MEDS ORDERED: Ondansetron 4 MG/2 ML VIAL ONE (13:40)
[2018-10-24] MEDS ORDERED: Lidocaine HCL 4 ML Topical Solution (Laryng-O-Jet Kit Sterile Pak) TP ONE (13:40)
[2018-10-24] MEDS ORDERED: Lidocaine -MPF 2% 2 ML VIAL ONE (13:40)
[2018-10-24] MEDS ORDERED: *HR* Rocuronium Bromide 50 MG/5 ML VIAL ONE (13:40)
--- NOTE | 2018-10-24 13:55 | Event Note ---
Date of Encounter: 10/24/18 Time of Encounter: 13:52 - Cardiology Event Note [facility] completed . Moderate 3 vessel CAD. No intervention. Medical therapy recommended. Acceptable moderate risk for gall bladder surgery. Currently rate controlled afib. Start heparin gtt bridge while off eliquis. Restart eliquis when safe from surgery standpoint. Out-pt f/u with cardiology will be coordinated. Cardiology will sign off.
[2018-10-24] MEDS ORDERED: *HR* Heparin 5,000 UNIT/ML VIAL IVP ONE (13:56)
[2018-10-24] MEDS ORDERED: *HR* Heparin 5,000 UNIT/ML VIAL IVP PRN ×2 (13:56)
[2018-10-24] MEDS ORDERED: Heparin 25,000 UNIT/250 ML D5W 25,000 UNIT/250 ML IV.SOLN IVC SCH (14:00)
[2018-10-24 14:23] LABS: Hematocrit 40.5 % (37.5-50.1); Hemoglobin 13.3 g/dL (12.9-16.9); Mean Corpuscular HGB Conc 32.8 g/dL (31.6-35.5); Mean Corpuscular Hemoglobin 29.5 pg (28.0-33.3); Mean Corpuscular Volume 89.8 fL (83.0-100.0); Platelet Count 231 K/mcL (140-400); Red Blood Count 4.51 M/mcL (4.19-5.50); Red Cell Distribution Width 13.8 % (11.5-14.5); White Blood Count 16.9 K/mcL (4.3-11.1)
[2018-10-24 14:32] LABS: Heparin anti-factor XA UFH 0.49 IU/mL (0.30-0.70)
[2018-10-24 14:33] LABS: INR 1.4; Prothrombin Time 16.1 Seconds (9.4-12.1)
[2018-10-24] MEDS: Famotidine 20 MG TABLET PO SCH (15:04)
[2018-10-24] MEDS: levoFLOXacin 500 MG/100 ML 500 MG/100 ML BAG IVPB SCH (15:05)
[2018-10-25] MEDS ORDERED: *HR* FentaNYL (PF) 100 MCG/2 ML VIAL ONE (01:20)
[2018-10-25] MEDS ORDERED: *HR* Rocuronium Bromide 50 MG/5 ML VIAL ONE ×2 (01:20→03:20)
[2018-10-25] MEDS ORDERED: *HR* Propofol 200 MG/20 ML VIAL IVP ONE (01:20)
[2018-10-25] MEDS ORDERED: Isovue-300 50 ML VIAL ONE (01:40)
--- NOTE | 2018-10-25 02:01 | Anesthesia Evaluation PreOp ---
Date of Encounter: 10/25/18 Time of Encounter: 02:00 - Past History Planned Operation: Lap Cholecystectomy Cardiac History: Arrhythmia (AFib on Eliquis currently heparin bridging), Other (CAD) Pulmonary History: COPD (home oxygen at night) [employer] History: CVA () Other Medical History: Diabetes Type II Anesthesia History: No Prior Anesthetic Complications Alcohol Use: none Drug use: none Medications and Allergies Albuterol Neb [Proventil Neb] 2.5 mg IH TID PRN 05/12/16 [History] Citalopram Hydrobromide [Celexa] 40 mg PO DAILY 05/12/16 [History] Lisinopril [Zestril] 5 mg PO DAILY 05/12/16 [History] Umeclidinium Brm/Vilanterol Tr [Anoro Ellipta 62.5-25 Mcg INH] 1 puff IH BID PRN 05/12/16 [History] Omeprazole [PriLOSEC] 40 mg PO DAILY #30 cap 05/14/16 [Rx] Acetaminophen [Pain Relief] 1,500 mg PO HS PRN 08/30/18 [History] Albuterol Sulfate [Ventolin Hfa] 2 puff IH Q4-6H PRN 08/30/18 [History] Fluticasone Furoate [Arnuity Ellipta] 1 puff IH DAILY PRN 08/30/18 [History] Apixaban [Eliquis] 5 mg PO BID #60 tablet 09/03/18 [Rx] Atorvastatin [Lipitor] 80 mg PO HS #30 tablet 09/03/18 [Rx] Clopidogrel [Plavix] 75 mg PO DAILY #30 tablet 09/03/18 [Rx] Metoprolol [Lopressor] 12.5 mg PO BID #60 tablet 09/03/18 [Rx] raNITIdine HCl [Zantac] 150 mg PO QPM 10/22/18 [History] Allergy/AdvReac Type Severity Reaction Status Date / Time Penicillins AdvReac Rash Verified 02/28/18 12:27 - Meds/Allergy Pre-op Review Medications Reviewed: Yes Allergies Reviewed: Yes Beta Blockers on Current Med List: Yes (metoprolol last night 2300) Anesthesia Results - Labs 10/24/18 14:10 10/24/18 04:49 - Imaging EKG: report reviewed (AFib RVR) Additional studies: LHC EF 65%, moderate CAD Anesthesia Exam Vital Signs/O2 Sat/Glucose, Most Current Temp Pulse Resp BP Pulse Ox 10/24/18 23:45 99.5 F 79 16 153/84 93 Blood glucose: 111 Height: 5'8 Weight: 180 lbs NPO (# of Hours): MN Pain Scale: 0 - HEENT Pupil (Motor): Pupils equal, EOMI Mallampati: III Teeth: Edentulous Oral Opening: Less than or equal to 3 - [employer] LOC: Oriented [employer] Motor: Normal RUE, Normal LUE, Normal RLE, Normal Face, Deficit LLE (toes amputated) [employer] Sensory: Normal: RUE, LUE, RLE, LLE, Face - Cardiac Rhythm: Irregular Murmur: None JVD: No Carotid Bruit: No - Pulmonary Breath Sounds: bilateral Clear Respiratory Effort: Symmetrical Anesthesia Assess/Plan ASA Score: 4 (CVA COPD on home oxygen CAD AFib) Level of consciousness: Cooperative, Oriented Anesthetic Plan: General Autologous Blood: No Monitoring Plan: Standard Monitors Recovery Plan: PACU (Discussed GA, agrees to proceed)
--- NOTE | 2018-10-25 04:01 | Operative Note ---
Date of procedure: 10/25/18 Pre-op diagnosis: acute cholecystitis with cholelithiasis Post-op diagnosis: same (with gallbladder hydrops) Procedure: Laparoscopic cholecystectomy Complications: none Anesthesia: GETA Surgeon: Ros Oneill Was there an asset protection assistant present: No Estimated blood loss (cc): 35 Specimen: gallbladder Condition: stable Disposition: PACU Procedure in Detail: This 78 year-old male was taken to the operating room and placed in the supine position. The anterior abdominal wall is prepped and draped in the usual sterile fashion. A 1-2 cm curvilinear incision is made in the infraumbilical area and subcutaneous tissue was dissected down to anterior rectus fascia. Fascia is grasped with a Lacie clamp, stay sutures were placed in the fascia is divided. Posterior rectus fascia and peritoneum were elevated and divided in the same manner. A Sean port is inserted. Under direct visualization after the injection of 0.5% Marcaine the x3 5 mm ports are inserted in the right subcostal space under direct visualization. Exploration of the intraabdominal cavity reveals an abnormal gallbladder. The patient is placed in reverse Trendelenburg position and rotated to the left. The gallbladder is grasped and retracted in cephalad direction. It is also grasped and retracted in the lateral direction. The cystic duct was carefully identified circumferentially dissected doubly clipped and divided between clips. The cystic artery is carefully identified and circumferentially dissected and divided between clips. The gallbladder is dissected off the liver bed using electrocautery. Hemostasis was perfected using electrocautery. The gallbladder is removed from the intra-abdominal cavity using an Endo Catch bag. Copious irrigation is carried out in the intra- abdominal cavity, Cortes's pouch and the gallbladder fossa. The pneumoperitoneum was allowed to escape under direct visualization. The ports were removed also under direct visualization. The fascia at the infraumbilical incision is closed using 0 Vicryl sutures. All skin incisions are closed using 4-0 Monocryl subcuticular stitches. Steri-Strips are placed. Sterile dressing is placed. Patient tolerated procedure well was taken to the PACU in good condition.
[2018-10-25] MEDS ORDERED: Ringers Solution, Lactated 1,000 ML ONE (04:17)
[2018-10-25] MEDS ORDERED: Morphine Sulfate 2 MG/ML SYRINGE IVP PRN (04:17)
[2018-10-25] MEDS ORDERED: Ondansetron 4 MG/2 ML VIAL IVP ONE (04:17)
--- NOTE | 2018-10-25 04:48 | Anesthesia Evaluation Post Op ---
Date of Encounter: 10/25/18 Time of Encounter: 04:50 - Vital Signs Vital Signs: Vital Signs/O2 Sat/Glucose, Most Current Temp Pulse Resp BP Pulse Ox 10/25/18 04:38 98.1 F 83 16 114/58 97 10/25/18 04:28 81 10 133/74 96 10/25/18 04:18 78 13 123/61 96 10/25/18 04:08 98.1 F 83 16 127/68 92 - Lungs Lungs: Clear Ascult./Percussion - Airway Airway: Non-obstructed - Cardiovascular Regular Rate - Mental Status Mental Status: Alert & Oriented, Answers Appropriately - Pain Pain Scale: 0 - Nausea Vomiting Nausea Vomiting: Not Present - Hydration Hydration: Ice chips - Discharge PostOp Status: Transfer Patient to floor
[2018-10-25] MEDS ORDERED: Dextrose Gel 15 GM/37.5 ML TUBE PO PRN (04:58)
[2018-10-25] MEDS ORDERED: Ipratropium/Albuterol Neb 3 ML IH PRN (04:58)
[2018-10-25] MEDS ORDERED: Albuterol 2.5 MG/3 ML NEBULIZER IH PRN (04:58)
[2018-10-25] MEDS ORDERED: Ondansetron ODT 4 MG TAB.RAPDIS SL PRN (04:58)
[2018-10-25] MEDS ORDERED: *HR* Promethazine 25 MG/ML VIAL IVP PRN (04:58)
[2018-10-25] MEDS ORDERED: Naloxone 0.4 MG/ML INJ IVP PRN (04:58)
[2018-10-25] MEDS: MetroNIDAZOLE 500 MG/100 ML 500 MG/100 ML BAG IVPB SCH ×4 (05:42→22:55)
[2018-10-25] MEDS: Acetaminophen IV 1,000 MG/100 ML INFUS..BTL IVPB SCH ×4 (06:16→23:57)
[2018-10-25 08:02] LABS: Hematocrit 39.1 % (37.5-50.1); Hemoglobin 12.4 g/dL (12.9-16.9); Mean Corpuscular HGB Conc 31.7 g/dL (31.6-35.5); Mean Corpuscular Volume 91.4 fL (83.0-100.0); Platelet Count 231 K/mcL (140-400); Red Blood Count 4.28 M/mcL (4.19-5.50); Red Cell Distribution Width 13.8 % (11.5-14.5); White Blood Count 14.6 K/mcL (4.3-11.1)
[2018-10-25] MEDS: Insulin LISPRO 300 UNITS/3 ML VIAL SQ SCH ×3 (08:08→17:10)
[2018-10-25 08:21] LABS: Alanine Aminotransferase 39 Units/L (7-52); Albumin 3.4 g/dL (3.5-5.7); Albumin/Globulin Ratio 1.3 (1.1-2.2); Alkaline Phosphatase 115 Units/L (34-104); Aspartate Amino Transferase 62 Units/L (13-39); BUN/Creatinine Ratio 21 (6-26); Bilirubin,Total 1.3 mg/dL (0.3-1.0); Blood Urea Nitrogen 19 mg/dL (8-23); Calcium 8.6 mg/dL (8.6-10.3); Carbon Dioxide 23 mEq/L (23-29); Chloride 107 mEq/L (98-107); Globulin 2.6 g/dL (2.4-3.5); Glucose 140 mg/dL (70-105); Magnesium 1.7 mg/dL (1.6-2.6); Osmolality,Calculated 289 (280-300); Potassium 3.7 mEq/L (3.5-5.1); Sodium 137 mEq/L (136-145); eGFR For African Americans > 60 (> 60); eGFR For Non-African Americans > 60 (> 60)
[2018-10-25 08:22] LABS: BUN/Creatinine Ratio 21 (6-26); Blood Urea Nitrogen 19 mg/dL (8-23); Calcium 8.7 mg/dL (8.6-10.3); Carbon Dioxide 22 mEq/L (23-29); Chloride 107 mEq/L (98-107); Glucose 141 mg/dL (70-105); Osmolality,Calculated 293 (280-300); Potassium 3.7 mEq/L (3.5-5.1); Sodium 139 mEq/L (136-145); eGFR For African Americans > 60 (> 60); eGFR For Non-African Americans > 60 (> 60)
[2018-10-25] MEDS: Apixaban 5 MG TABLET PO SCH ×2 (13:39→21:13)
--- NOTE | 2018-10-25 13:55 | Internal Med Progress Note ---
Hospitalist Progress Note - Encounter Date of Encounter: 10/25/18 Time of Encounter: 11:15 - Subjective Interval History: Pt was seen and examined at bed side. He had lap cholecystectomy early this morning Now resting comfortably c.o mild discomfort at incision areas Denied any SOB / ALEJO Denied any CP - Exam Vitals: Temp Pulse Resp BP Pulse Ox 98.8 F 81 17 147/85 92 10/25/18 12:00 10/25/18 12:00 10/25/18 12:00 10/25/18 12:00 10/25/18 12:00 Exam: Gen: Alert, awake, Oriented to time,place and person Chest: Diminished breath sounds B/L, No wheezing, No crackles, No rales Heart: S1S2+ Afib, No murmurs Abd: Soft, Mild discomfort at incision areas, BS +, No organomegaly Ext: No edema, pulses are palpable, No calf tenderness Neuro : No acute focal neuro deficits noticed Skin: No rash. - Assessment and Plan (1) Chest pain Current Visit: Yes Status: Acute Assessment and Plan: Serial trop x 3 negative No acute ischemic changes on EKG His nuclear stress test came back Mild mid-basal inferolateral ischemia on perfusion study (reversible mid-basal inferolateral perfusion defect of small size and mild intensity, SDS = 3) No infarct on perfusion study Cont home med ASA, Statin and Metoprolol Cardiology evaluated the pt and did LHC which showed moderate triple vessel disease with no interventions so continued medical management (2) Abnormal nuclear stress test Current Visit: Yes Status: Acute Assessment and Plan: s/p LHC with no interventions (3) RUQ abdominal pain Current Visit: Yes Status: Acute Assessment and Plan: His US of Abd showed gallbladder sludge His symptoms are consistent with cholecystitis s/p Lap cholecystectomy cont empirical abx Levaquin + Flagyl for another 24 hrs cont symptomatic and supportive care resumed diet appreciate surgeon Dr. Rodríguez help (4) Atrial fibrillation Current Visit: Yes Status: Chronic Assessment and Plan: rate well controlled with current meds cont close monitoring on tele cont Metoprolol Resumed Eliquis (5) History of CVA (cerebrovascular accident) without residual deficits Current Visit: No Status: Acute Assessment and Plan: on ASA + Eliquis and Statin (6) Pre-diabetes Current Visit: Yes Status: Acute Assessment and Plan: HgA1c of 6.4. Hyperglycemic here. ADA diet on ISS (7) COPD (chronic obstructive pulmonary disease) Current Visit: No Status: Chronic Assessment and Plan: Stable not in exacerbation he does have chronic hypoxic respiratory failure continue current home regimen (8) HTN (hypertension) Current Visit: No Status: Chronic Assessment and Plan: Continue home medications - Time Spent with Patient Total time spent is greater than 50% in coordination of care (as documented) at patient's floor/unit and/or counseling patient: Internal Medicine: Result - Labs CBC & Chem 7: 10/25/18 07:44 10/25/18 07:44 Labs: Short CBC 10/24/18 10/25/18 Range/Units 14:10 07:44 WBC 16.9 H 14.6 H (4.3-11.1) K/mcL Hgb 13.3 12.4 L (12.9-16.9) g/dL Hct 40.5 39.1 (37.5-50.1) % Plt Count 231 231 (140-400) K/mcL BMP 10/25/18 10/25/18 07:44 07:44 Sodium 139 137 Potassium 3.7 3.7 Chloride 107 107 Carbon Dioxide 22 L 23 BUN 19 19 Creatinine 0.91 0.90 Glucose 141 H 140 H Calcium 8.7 8.6 Liver Function 10/25/18 Range/Units 07:44 Total Bilirubin 1.3 H (0.3-1.0) mg/dL AST 62 H (13-39) Units/L ALT 39 (7-52) Units/L Alkaline Phosphatase 115 H (34-104) Units/L Albumin 3.4 L (3.5-5.7) g/dL - ABG Interpretation ABG results: PT/INR, D-dimer PT 16.1 Seconds (9.4-12.1) H 10/24/18 14:10 Consult Discharge Plan - Plan Instructions: Chest Pain (DC), Cholecystitis (DC) Referrals: Yoan Dudley MD [Non-Partnered Physician] - 10/30/18 11:00 am (1) Chest pain Qualifiers: Chest pain type: other chest pain Qualified Code(s): R07.89 - Other chest pain; R07.8 - Other chest pain (4) Atrial fibrillation Qualifiers: Atrial fibrillation type: persistent Qualified Code(s): I48.1 - Persistent atrial fibrillation (7) COPD (chronic obstructive pulmonary disease) Qualifiers: COPD type: unspecified COPD Qualified Code(s): J44.9 - Chronic obstructive pulmonary disease, unspecified (8) HTN (hypertension) Qualifiers: Hypertension type: essential hypertension Qualified Code(s): I10 - Essential (primary) hypertension
[2018-10-25] MEDS ORDERED: levoFLOXacin 500 MG/100 ML 500 MG/100 ML BAG IVPB SCH (15:00)
--- NOTE | 2018-10-25 15:17 | AcuteCareSurgery Progress Note ---
Date of Encounter: 10/25/18 Time of Encounter: 15:00 - Assessment and Plan (1) Acute cholecystitis due to biliary calculus Current Visit: Yes Status: Acute POD #0 Laparoscopic Cholecystectomy Tolerating soft diet Continue IV antibiotics- Levaquin and Flagyl Supportive care and pain control IS every 1 hour while awake May ambulate hallways TID with assistance from a surgery standpoint EPCDs to bilateral lower extremities am labs- CBC, BMP, Hepatic panel Surgery will continue to follow and assess progress Subjective Patient reports: no new complaints, feels better, tolerating a regular diet, voiding w/o difficulty, afebrile Objective Vital Signs - Last 8 Hours Temp Pulse Resp BP Pulse Ox 10/25/18 12:00 98.8 F 81 17 147/85 92 10/25/18 08:19 97.5 F L 85 18 131/68 92 Intake and Output 10/24/18 10/25/18 10/25/18 23:59 07:59 15:59 Intake Total 1200 / 1500 300 / 500 200 / 500 Output Total 35 / 35 Balance 1200 / 1200 265 / 465 200 / 465 Intake: IV Fluids 1200 / 1500 300 / 500 200 / 500 0.9 % Sodium Chloride 1,000 ML 1000 / 1000 @ 0 mls/hr .ROUTE .[facility] Rx#:[id number] Ofirmev 1,000 mg/100 ml 1,000 100 / 200 100 / 200 mg In 100 ml @ 400 mls/hr IVPB Q6HR [facility] Rx#:[id number] Flagyl Premix 500 MG/100 ML 500 100 / 400 200 / 300 100 / 300 mg In 100 ml @ 100 mls/hr IVPB Q6HR [facility] Rx#:[id number] Levaquin Premix 500mg/100mL 500 100 / 100 mg In 100 ml @ 100 mls/hr IVPB Q24H [facility] Rx#:[id number] Output: Estimated Blood Loss 35 / 35 Other: Blood Glucose* 106 131 117 - General physical appearance well developed, well nourished, no distress - Eyes normal ocular movement - ENT normal mucosa, atraumatic, normocephalic - Neck Neck exam: trachea midline - Respiratory normal respiratory effort wheezing: bilateral - Cardiovascular Cardiovascular exam: Present: irregular rhythm - Abdomen Abdomen: Present: bowel sounds present, soft, tender (Minimal, expected postoperative tenderness) - Incision Incision: Present: clean and dry, intact - Neurologic CN 2-12 grossly intact - Psychiatric oriented to person, oriented to place, speech is normal - Labs 10/25/18 07:44 10/25/18 07:44 Diabetes panel 10/25/18 10/25/18 Range/Units 07:44 07:44 Sodium 139 137 (136-145) mEq/L Potassium 3.7 3.7 (3.5-5.1) mEq/L Chloride 107 107 (98-107) mEq/L Carbon Dioxide 22 L 23 (23-29) mEq/L BUN 19 19 (8-23) mg/dL Creatinine 0.91 0.90 (0.70-1.30) mg/dL Glucose 141 H 140 H (70-105) mg/dL Calcium 8.7 8.6 (8.6-10.3) mg/dL AST 62 H (13-39) Units/L ALT 39 (7-52) Units/L Alkaline Phosphatase 115 H (34-104) Units/L Albumin 3.4 L (3.5-5.7) g/dL Calcium panel 10/25/18 10/25/18 Range/Units 07:44 07:44 Calcium 8.7 8.6 (8.6-10.3) mg/dL Albumin 3.4 L (3.5-5.7) g/dL Pituitary panel 10/25/18 10/25/18 Range/Units 07:44 07:44 Sodium 139 137 (136-145) mEq/L Potassium 3.7 3.7 (3.5-5.1) mEq/L Chloride 107 107 (98-107) mEq/L Carbon Dioxide 22 L 23 (23-29) mEq/L BUN 19 19 (8-23) mg/dL Creatinine 0.91 0.90 (0.70-1.30) mg/dL Glucose 141 H 140 H (70-105) mg/dL Calcium 8.7 8.6 (8.6-10.3) mg/dL Adrenal panel 10/25/18 10/25/18 Range/Units 07:44 07:44 Sodium 139 137 (136-145) mEq/L Potassium 3.7 3.7 (3.5-5.1) mEq/L Chloride 107 107 (98-107) mEq/L Carbon Dioxide 22 L 23 (23-29) mEq/L BUN 19 19 (8-23) mg/dL Creatinine 0.91 0.90 (0.70-1.30) mg/dL Glucose 141 H 140 H (70-105) mg/dL Calcium 8.7 8.6 (8.6-10.3) mg/dL Total Bilirubin 1.3 H (0.3-1.0) mg/dL AST 62 H (13-39) Units/L ALT 39 (7-52) Units/L Alkaline Phosphatase 115 H (34-104) Units/L Albumin 3.4 L (3.5-5.7) g/dL Consult Discharge Plan - Plan Instructions: Chest Pain (DC), Cholecystitis (DC) Additional Instructions: General Surgical Discharge Instructions 1. No pushing, pulling, or lifting greater than 15 lbs for 2 weeks 2. You may shower beginning today, but no tub baths, soaking, or swimming for 2 weeks. 3. You may resume driving when you are off narcotics and are safe to react in a car. 4. Take ibuprofen every 8 hours for discomfort. If this does not relieve discomfort, you may take the as needed Percocet. Take narcotics as directed. Do not take more narcotics then directed and do not share your narcotics with any other person. Do not drink alcohol while on narcotics. 5. Take stool softeners (Colace) or a water based laxative (Miralax) while taking narcotics. You may hold for loose stools. 6. Report any fevers greater than 100.5F, increase abdominal discomfort, drainage that looks like pus, increased redness or pain at the surgical site, or any vomiting. 7. Report any pain in the calves, shortness of breath, or rapid heartbeat. 8. Follow-up in the office as directed. 9. If you were prescribed antibiotics, do not stop them without talking to your provider. Referrals: Yoan Dudley MD [Non-Partnered Physician] - 10/30/18 11:00 am Juancho Silva MD [Partnered Physician] - 11/07/18 8:40 am (Surgery follow-up) - Attending Attestation For this encounter, I have reviewed the [employer] or PA documentation, treatment plan, and medical decision making; and I have had face to face time with this patient.
[2018-10-25] MEDS ORDERED: Famotidine 20 MG TABLET PO SCH (16:30)
[2018-10-25] MEDS ORDERED: Insulin LISPRO 300 UNITS/3 ML VIAL SQ SCH (21:00)
[2018-10-25] MEDS: *HR* OxyCODONE/APAP 5/325 TABLET PO PRN (21:24)
[2018-10-26] MEDS: *HR* OxyCODONE/APAP 5/325 TABLET PO PRN (03:05)
[2018-10-26] MEDS ORDERED: *HR* Metoprolol 5 MG/5 ML VIAL IVP STA (03:54)
[2018-10-26] MEDS: Acetaminophen IV 1,000 MG/100 ML INFUS..BTL IVPB SCH (04:51)
[2018-10-26 05:18] LABS: Basophils # 0.1 K/mcL (0.0-0.2); Basophils % 0.3 %; Eosinophils % 0.1 %; Hematocrit 39.2 % (37.5-50.1); Hemoglobin 12.9 g/dL (12.9-16.9); Immature Granulocytes % 0.5 % (0-4); Lymphocytes # 0.7 K/mcL (0.6-4.6); Mean Corpuscular HGB Conc 32.9 g/dL (31.6-35.5); Mean Corpuscular Hemoglobin 29.1 pg (28.0-33.3); Mean Corpuscular Volume 88.3 fL (83.0-100.0); Mean Platelet Volume 10.4 fL (9.4-12.4); Monocytes # 1.5 K/mcL (0.0-1.3); Monocytes % 8.3 %; Neutrophils # 15.3 K/mcL (1.6-8.9); Platelet Count 261 K/mcL (140-400); Red Blood Count 4.44 M/mcL (4.19-5.50); Red Cell Distribution Width 13.9 % (11.5-14.5); Segmented Neutrophils % 86.8 %; White Blood Count 17.6 K/mcL (4.3-11.1)
[2018-10-26] MEDS: MetroNIDAZOLE 500 MG/100 ML 500 MG/100 ML BAG IVPB SCH (05:23)
[2018-10-26 05:32] LABS: Alanine Aminotransferase 38 Units/L (7-52); Albumin 3.3 g/dL (3.5-5.7); Albumin/Globulin Ratio 1.2 (1.1-2.2); Alkaline Phosphatase 104 Units/L (34-104); Aspartate Amino Transferase 53 Units/L (13-39); BUN/Creatinine Ratio 21 (6-26); Bilirubin,Total 1.3 mg/dL (0.3-1.0); Blood Urea Nitrogen 16 mg/dL (8-23); Calcium 8.6 mg/dL (8.6-10.3); Carbon Dioxide 22 mEq/L (23-29); Chloride 108 mEq/L (98-107); Globulin 2.8 g/dL (2.4-3.5); Glucose 131 mg/dL (70-105); Osmolality,Calculated 293 (280-300); Potassium 3.2 mEq/L (3.5-5.1); Sodium 140 mEq/L (136-145); Total Protein 6.1 g/dL (6.4-8.9); eGFR For African Americans > 60 (> 60); eGFR For Non-African Americans > 60 (> 60)
[2018-10-26] MEDS: Insulin LISPRO 300 UNITS/3 ML VIAL SQ SCH (07:56)
[2018-10-26] MEDS: Apixaban 5 MG TABLET PO SCH (07:57)
--- NOTE | 2018-10-26 10:19 | Discharge Summary ---
- NOTES TO OUTPATIENT PROVIDER Notes to Outpatient Provider: f/u with PCP in one week. f/u with Cardiology in 2 weeks. f/u with surgery as scheduled. Medications changes: Increased Metoprolol to 50mg PO BID Orders not resulted at time of discharge: Pending orders 10/25/18 03:06 Surgical Pathology [PTH] Routine Date of Encounter: 10/26/18 Time of Encounter: 10:16 - Discharge Diagnosis (1) RUQ abdominal pain Priority: Primary Status: Acute (2) Chest pain Priority: Primary Status: Acute Qualifiers: Chest pain type: other chest pain Qualified Code(s): R07.89 - Other chest pain; R07.8 - Other chest pain (3) Abnormal nuclear stress test Priority: Primary Status: Acute (4) Atrial fibrillation Priority: Secondary Status: Chronic Qualifiers: Atrial fibrillation type: paroxysmal Qualified Code(s): I48.0 - Paroxysmal atrial fibrillation (5) History of CVA (cerebrovascular accident) without residual deficits Priority: Secondary Status: Acute (6) Pre-diabetes Priority: Secondary Status: Acute (7) COPD (chronic obstructive pulmonary disease) Priority: Secondary Status: Chronic Qualifiers: COPD type: unspecified COPD Qualified Code(s): J44.9 - Chronic obstructive pulmonary disease, unspecified (8) HTN (hypertension) Priority: Secondary Status: Chronic Qualifiers: Hypertension type: essential hypertension Qualified Code(s): I10 - Essential (primary) hypertension Hospital course: Mr. Lester is a 78 year old male recent CVA with newly discovered afib on Eliquis, HTN, GERD, chronic respiratory failure 2/2 COPD on 2L of oxygen pt presented to ER with epigastric pain radiating to his RUQ of Abd. He also c/o s ome chest discomfort. His initial troponin was negative. His EKG did not show any acute ischemic changes. He was admitted in the hospital and placed him on web master. His serial troponin came back as negative. Since he is high risk for ACS, he did go for nuclear stress test which came back as slightly abnormal. Pt was evaluated by Cardiology. He denied any CP / SOB. His RUQ abd pain also better today. He did go for LHC which showed moderate triple vessel disease with no interventions. He did c/o RUQ abd pain and his GB ultrasound showed sludge and his symptoms were consistent with acute cholecystitis. Pt was evaluated by surgery who did start him on empirical abx and performed lap cholecystectomy y/d. Post operatively pt has been doing well. His abd pain is well controlled and tolerating PO intake well. Regarding his Afib brday, he was going in and out A fib, moslty due to stress and deconditioning. We increased his Metoprolol to 50mg PO BID, now he is in NSR and rate controlled. - Time Spent with Patient Total time spent providing and/or coordinating discharge services: - Discharge Medications Prescriptions: New Metoprolol [Lopressor] 50 mg PO BID #60 tablet Discontinued Metoprolol [Lopressor] 12.5 mg PO BID #60 tablet No Action Lisinopril [Zestril] 5 mg PO DAILY Citalopram Hydrobromide [Celexa] 40 mg PO DAILY Umeclidinium Brm/Vilanterol Tr [Anoro Ellipta 62.5-25 Mcg INH] 1 puff IH BID PRN PRN Reason: Shortness Of Breath Albuterol Neb [Proventil Neb] 2.5 mg IH TID PRN PRN Reason: Shortness Of Breath Omeprazole [PriLOSEC] 40 mg PO DAILY #30 cap Acetaminophen [Pain Relief] 1,500 mg PO HS PRN PRN Reason: Pain Albuterol Sulfate [Ventolin Hfa] 2 puff IH Q4-6H PRN PRN Reason: Shortness Of Breath Fluticasone Furoate [Arnuity Ellipta] 1 puff IH DAILY PRN PRN Reason: Shortness Of Breath Apixaban [Eliquis] 5 mg PO BID #60 tablet Atorvastatin [Lipitor] 80 mg PO HS #30 tablet Clopidogrel [Plavix] 75 mg PO DAILY #30 tablet raNITIdine HCl [Zantac] 150 mg PO QPM Home Medications: Albuterol Neb [Proventil Neb] 2.5 mg IH TID PRN 05/12/16 [History] Citalopram Hydrobromide [Celexa] 40 mg PO DAILY 05/12/16 [History] Lisinopril [Zestril] 5 mg PO DAILY 05/12/16 [History] Umeclidinium Brm/Vilanterol Tr [Anoro Ellipta 62.5-25 Mcg INH] 1 puff IH BID PRN 05/12/16 [History] Omeprazole [PriLOSEC] 40 mg PO DAILY #30 cap 05/14/16 [Rx] Acetaminophen [Pain Relief] 1,500 mg PO HS PRN 08/30/18 [History] Albuterol Sulfate [Ventolin Hfa] 2 puff IH Q4-6H PRN 08/30/18 [History] Fluticasone Furoate [Arnuity Ellipta] 1 puff IH DAILY PRN 08/30/18 [History] Apixaban [Eliquis] 5 mg PO BID #60 tablet 09/03/18 [Rx] Atorvastatin [Lipitor] 80 mg PO HS #30 tablet 09/03/18 [Rx] Clopidogrel [Plavix] 75 mg PO DAILY #30 tablet 09/03/18 [Rx] raNITIdine HCl [Zantac] 150 mg PO QPM 10/22/18 [History] Metoprolol [Lopressor] 50 mg PO BID #60 tablet 10/26/18 [Rx] Allergies/Adverse Reactions: Allergy/AdvReac Type Severity Reaction Status Date / Time Penicillins AdvReac Rash Verified 02/28/18 12:27 Date of admission: 10/23/18 14:34 Primary care physician: PCP NONE Consults: 10/23/18 10:20 Consult to Surgery [CONS] Routine Consulting Provider: Acute Care Surgery Reason for Consult: RUQ abd pain Time Notified: 10:26 Call Completed: Yes 10/23/18 14:04 Consult to Cardiology [CONS] Routine Comment: Consulting Provider: Card[facility] [place] Reason for Consult: Need Card clearence for Cholecystectomy Time Notified: 14:05 Call Completed: Yes - Constitutional Vitals: Temp Pulse Resp BP Pulse Ox 98.4 F 128 19 157/80 96 10/26/18 07:03 10/26/18 07:03 10/26/18 07:03 10/26/18 07:03 10/26/18 05:09 General appearance: Present: cooperative, A&O X 3, no acute distress, answers questions appropriately Exam: Gen: Alert, awake, Oriented to time,place and person Chest: Diminished breath sounds B/L, No wheezing, No crackles, No rales Heart: S1S2+ NSR, No murmurs Abd: Soft, Mild discomfort at incision areas, BS +, No organomegaly Ext: No edema, pulses are palpable, No calf tenderness Neuro : No acute focal neuro deficits noticed Skin: No rash. - Patient Status Disposition: Home, Self-Care Condition: Good Overall status at discharge: patient is back to baseline - Discharge Instructions Instructions: Chest Pain (DC), Laparoscopic Cholecystectomy (DC) Follow Up With: Juancho Silva MD [Partnered Physician] - 11/07/18 8:40 am (Surgery follow-up) Yoan Dudley MD [Non-Partnered Physician] - 10/30/18 11:00 am Forms: ED Satisfaction Letter Additional Instructions: General Surgical Discharge Instructions 1. No pushing, pulling, or lifting greater than 15 lbs for 2 weeks 2. You may shower beginning today, but no tub baths, soaking, or swimming for 2 weeks. 3. You may resume driving when you are off narcotics and are safe to react in a car. 4. Take ibuprofen every 8 hours for discomfort. If this does not relieve discomfort, you may take the as needed Percocet. Take narcotics as directed. Do not take more narcotics then directed and do not share your narcotics with any other person. Do not drink alcohol while on narcotics. 5. Take stool softeners (Colace) or a water based laxative (Miralax) while ta sylvia narcotics. You may hold for loose stools. 6. Report any fevers greater than 100.5F, increase abdominal discomfort, drainage that looks like pus, increased redness or pain at the surgical site, or any vomiting. 7. Report any pain in the calves, shortness of breath, or rapid heartbeat. 8. Follow-up in the office as directed. 9. If you were prescribed antibiotics, do not stop them without talking to your provider. - Diet and Activity Activity: increase activity as tolerated Diet: low salt diet
--- NOTE | 2018-10-26 10:59 | Physician Discharge Referral ---
Home Health/Hosp Referral Info Transfer to: Home Health Provider in Charge Post Discharge: PCP - Diagnosis (1) RUQ abdominal pain Status: Acute (2) Chest pain Status: Acute (3) Abnormal nuclear stress test Status: Acute (4) Atrial fibrillation Status: Chronic (5) History of CVA (cerebrovascular accident) without residual deficits Status: Acute (6) Pre-diabetes Status: Acute (7) COPD (chronic obstructive pulmonary disease) Status: Chronic (8) HTN (hypertension) Status: Chronic - Respiratory Orders Smoking Cessation: Smoking cessation has been advised. For more information, call the [place] Tobacco Quit Line at 9-046-HZOD-NOW. - Services Needed Following services are medically necessary services: Nursing, Physical Therapy, Speech Therapy - Transfer Medications Prescriptions: Metoprolol [Lopressor] 50 mg PO BID #60 tablet Prescription Printed Home Medications: Albuterol Neb [Proventil Neb] 2.5 mg IH TID PRN 05/12/16 [History] Citalopram Hydrobromide [Celexa] 40 mg PO DAILY 05/12/16 [History] Lisinopril [Zestril] 5 mg PO DAILY 05/12/16 [History] Umeclidinium Brm/Vilanterol Tr [Anoro Ellipta 62.5-25 Mcg INH] 1 puff IH BID PRN 05/12/16 [History] Omeprazole [PriLOSEC] 40 mg PO DAILY #30 cap 05/14/16 [Rx] Acetaminophen [Pain Relief] 1,500 mg PO HS PRN 08/30/18 [History] Albuterol Sulfate [Ventolin Hfa] 2 puff IH Q4-6H PRN 08/30/18 [History] Fluticasone Furoate [Arnuity Ellipta] 1 puff IH DAILY PRN 08/30/18 [History] Apixaban [Eliquis] 5 mg PO BID #60 tablet 09/03/18 [Rx] Atorvastatin [Lipitor] 80 mg PO HS #30 tablet 09/03/18 [Rx] Clopidogrel [Plavix] 75 mg PO DAILY #30 tablet 09/03/18 [Rx] raNITIdine HCl [Zantac] 150 mg PO QPM 10/22/18 [History] Metoprolol [Lopressor] 50 mg PO BID #60 tablet 10/26/18 [Rx] Allergies/Adverse Reactions: Allergy/AdvReac Type Severity Reaction Status Date / Time Penicillins AdvReac Rash Verified 02/28/18 12:27 Certification: Further, I certify that my clinical findings support that this patient is homebound (i.e. absences from home require considerable and taxing effort and are for medical reasons or buddhist services or infrequently or short duration when for other reasons) because: Homebound Reason: Patient requires assistance of a person or device to safely leave home Attestation: My signature below is to certify that this patient is under my care and that I, or nurse practitioner, or a physician's retail administrative assistant working with me, has a [id number] encounter with this patient.
[2018-10-26 12:38] VITALS: BP 118/81
--- NOTE | 2018-10-26 17:48 | Electrocardiograph Report ---
[address] [place], [place] [address] Test Date: 2018-10-26 Pat Name: Harmeet Lester Department: [id number] Room: 3B22 Gender: M Cotton Converter: : [id number] Requested By: [id number] Order Number: [id number] Reading MD: Nawaf Damon Measurements Intervals [place] Rate: 116 P: UT: 0 QRS: 156 QRSD: 85 T: 215 QT: 315 QTc: 384 Interpretive Statements ATRIAL FIBRILLATION WITH RAPID VENTRICULAR RESPONSE POSSIBLE RIGHT VENTRICULAR HYPERTROPHY ST DEVIATION AND MODERATE T-WAVE ABNORMALITY, CONSIDER ANTERIOR ISCHEMIA Electronically Signed On 10-26-2018 17:46:52 EDT by Nawaf Damon
== END 2018-10-26 13:58 | disposition home or self-care (01) | DRG 418 ==
LOC: EMEROOARM 06:53 → 3BNU 06:53 → SUATTDRO 09:02 → 3BNU 10:15
PROVIDERS: ADMIT Internal Medicine; ATTEND Family Medicine

== ENCOUNTER 2020-02-07 21:59 | Inpatient (IN) ==
[2020-02-07 22:37] LABS: Basophils # 0.1 K/mcL (0.0-0.2); Basophils % 0.3 %; Eosinophils # 0.1 K/mcL (0.0-0.6); Eosinophils % 0.8 %; Hematocrit 39.9 % (37.5-50.1); Hemoglobin 12.8 g/dL (12.9-16.9); Immature Granulocytes % 0.4 % (0-4); Lymphocytes # 0.7 K/mcL (0.6-4.6); Lymphocytes % 4.2 %; Mean Corpuscular HGB Conc 32.1 g/dL (31.6-35.5); Mean Corpuscular Hemoglobin 28.7 pg (28.0-33.3); Mean Corpuscular Volume 89.5 fL (83.0-100.0); Mean Platelet Volume 9.6 fL (9.4-12.4); Monocytes % 5.9 %; Neutrophils # 14.6 K/mcL (1.6-8.9); Platelet Count 265 K/mcL (140-400); Red Blood Count 4.46 M/mcL (4.19-5.50); Red Cell Distribution Width 13.2 % (11.5-14.5); Segmented Neutrophils % 88.4 %; White Blood Count 16.5 K/mcL (4.3-11.1)
[2020-02-07] MEDS ORDERED: Isovue-370 500 ML BOTTLE IVP ONE (22:55)
[2020-02-07 23:01] LABS: BUN/Creatinine Ratio 14 (6-26); Blood Urea Nitrogen 12 mg/dL (8-23); Calcium 8.7 mg/dL (8.6-10.3); Carbon Dioxide 25 mEq/L (23-29); Chloride 104 mEq/L (98-107); Glucose 140 mg/dL (70-105); Osmolality,Calculated 290 (280-300); Potassium 3.5 mEq/L (3.5-5.1); Sodium 139 mEq/L (136-145); eGFR For African Americans > 60 (> 60); eGFR For Non-African Americans > 60 (> 60)
[2020-02-07 23:15] LABS: Troponin I 0.04 ng/mL (< 0.04)
[2020-02-08] MEDS ORDERED: Naloxone 0.4 MG/ML INJ IVP PRN ×2 (01:53→16:56)
[2020-02-08] MEDS ORDERED: Acetaminophen 325 MG TABLET PO PRN (01:53)
[2020-02-08] MEDS ORDERED: Ondansetron 4 MG/2 ML VIAL IVP PRN ×2 (01:53→12:53)
[2020-02-08] MEDS ORDERED: (Anoro Ellipta 62.5-2) IH PRN (01:55)
[2020-02-08 03:41] LABS: INR 1.4; Prothrombin Time 16.4 Seconds (9.4-12.1)
[2020-02-08 03:58] LABS: Alanine Aminotransferase 343 Units/L (7-52); Albumin 3.9 g/dL (3.5-5.7); Albumin/Globulin Ratio 1.3 (1.1-2.2); Alkaline Phosphatase 572 Units/L (34-104); Aspartate Amino Transferase 403 Units/L (13-39); BUN/Creatinine Ratio 13 (6-26); Bilirubin,Total 3.1 mg/dL (0.3-1.0); Blood Urea Nitrogen 11 mg/dL (8-23); Carbon Dioxide 23 mEq/L (23-29); Chloride 101 mEq/L (98-107); Chol/HDL Ratio 2.3 (0-4.9); Cholesterol 102 mg/dL (< 200); Glucose 158 mg/dL (70-105); HDL Cholesterol 44 mg/dL (40-59); LDL Cholesterol,Calculated 48 mg/dL (< 100); Magnesium 1.3 mg/dL (1.6-2.6); Osmolality,Calculated 285 (280-300); Phosphorous 1.7 mg/dL (2.7-4.5); Potassium 3.1 mEq/L (3.5-5.1); Sodium 136 mEq/L (136-145); Total Protein 6.9 g/dL (6.4-8.9); Triglycerides 48 mg/dL (< 150); Troponin I 0.05 ng/mL (< 0.04); eGFR For African Americans > 60 (> 60); eGFR For Non-African Americans > 60 (> 60)
[2020-02-08] MEDS ORDERED: Potassium Phosphate 44 MEQ in 0.9 % Sodium Chloride 250 ML IVPB ONE (04:00)
[2020-02-08] MEDS ORDERED: Isovue-370 500 ML BOTTLE IVP ONE (04:01)
[2020-02-08 04:09] LABS: Thyroid Stimulating Hormone 2.241 mcIU/mL (0.340-5.600)
[2020-02-08] MEDS ORDERED: *HR* Heparin 5,000 UNIT/ML VIAL IVP PRN ×2 (04:23)
[2020-02-08] MEDS ORDERED: *HR* Heparin 5,000 UNIT/ML VIAL IVP ONE (04:23)
[2020-02-08 04:41] LABS: Acetaminophen < 10 mcg/mL (10-20); Salicylate < 2.5 mg/dL (15.0-30.0)
[2020-02-08 04:42] LABS: Uric Acid 4.3 mg/dL (2.3-7.6)
[2020-02-08 04:51] LABS: Activated Partial Thrombo Time 28.5 Seconds (26.0-36.0)
[2020-02-08] MEDS: Heparin 25,000UNIT/250ML 1/2NS 25,000 UNIT/250 ML IV.SOLN IVC SCH ×2 (05:40→18:54)
[2020-02-08] MEDS ORDERED: lisinopriL 5 MG TABLET PO SCH (09:00)
[2020-02-08] MEDS ORDERED: Apixaban 5 MG TABLET PO SCH (09:00)
[2020-02-08] MEDS ORDERED: Perflutren Lipid Microsphere 1.3 ML in 0.9 % Sodium Chloride 8.7 ML IVP PRN (11:10)
[2020-02-08 12:00] LABS: Hematocrit 39.5 % (37.5-50.1); Hemoglobin 13.1 g/dL (12.9-16.9); Mean Corpuscular HGB Conc 33.2 g/dL (31.6-35.5); Mean Corpuscular Hemoglobin 29.2 pg (28.0-33.3); Mean Corpuscular Volume 88.2 fL (83.0-100.0); Mean Platelet Volume 9.8 fL (9.4-12.4); Platelet Count 244 K/mcL (140-400); Red Blood Count 4.48 M/mcL (4.19-5.50); Red Cell Distribution Width 13.4 % (11.5-14.5); White Blood Count 24.4 K/mcL (4.3-11.1)
[2020-02-08] MEDS ORDERED: *HR* Propofol 200 MG/20 ML VIAL IVP ONE (12:31)
[2020-02-08] MEDS ORDERED: *HR* FentaNYL (PF) 100 MCG/2 ML VIAL ONE (12:31)
[2020-02-08] MEDS ORDERED: *HR* Succinylcholine 200 MG/10 ML VIAL IVP ONE (12:32)
[2020-02-08] MEDS ORDERED: Lidocaine -MPF 2% 2 ML VIAL ONE (12:32)
[2020-02-08] MEDS ORDERED: Ondansetron 4 MG/2 ML VIAL ONE (12:32)
[2020-02-08] MEDS ORDERED: *HR* Rocuronium Bromide 50 MG/5 ML VIAL ONE (12:32)
[2020-02-08] MEDS ORDERED: Lidocaine HCL 4 ML Topical Solution (Laryng-O-Jet Kit Sterile Pak) TP ONE (12:36)
[2020-02-08] MEDS ORDERED: EPHEDrine 50 MG/ML VIAL ONE (12:46)
[2020-02-08] MEDS ORDERED: Albumin Human 5% 12.5 GM/250 ML IV.SOLN ONE (12:47)
[2020-02-08] MEDS ORDERED: *HR* Vasopressin 20 UNIT/ML VIAL ONE (12:49)
[2020-02-08] MEDS ORDERED: *HR* FentaNYL (PF) 100 MCG/2 ML VIAL IVP PRN (12:53)
[2020-02-08 12:55] LABS: Anisocytosis 1+ (Not Present); Large Platelets Present (Not Present); Lymphocytes # 0.5 K/mcL (0.6-4.6); Platelet Estimate Normal (Normal); Toxic Granulation Present (Not Present)
[2020-02-08] MEDS ORDERED: Indomethacin 50 MG SUPP.RECT RC ONE (14:05)
[2020-02-08] MEDS ORDERED: Albumin Human 5% 12.5 GM/250 ML IV.SOLN IVPB ONE (14:52)
[2020-02-08 15:18] LABS: Hepatitis B Surface Antigen Nonreactive (Nonreactive)
[2020-02-08 15:47] LABS: Hepatitis C Virus Antibody Nonreactive (Nonreactive)
[2020-02-08 15:48] LABS: Hepatitis B Core IgM Nonreactive (Nonreactive)
[2020-02-08 15:49] LABS: Hepatitis A Antibody IgM Nonreactive (Nonreactive)
[2020-02-08] MEDS ORDERED: Ringers Solution, Lactated 500 ML IVC ONE (16:09)
[2020-02-08] MEDS ORDERED: Ringers Solution, Lactated 500 ML ONE (16:20)
[2020-02-08 16:32] LABS: ABG Base Excess -3 mEq/L (-2 to 3); ABG HCO3 22 mEq/L (21-27); ABG Oxygen Saturation 96 % (95-98); ABG PCO2 35 mmHg (35-45); ABG PO2 79 mmHg (85-104); ABG TCO2 23 mEq/L (20-26)
[2020-02-08] MEDS: Cefepime HCl 2,000 MG in Water for inj. (sterile) 20 ML IVP SCH ×2 (16:35→23:26)
[2020-02-08] MEDS: MetroNIDAZOLE 500 MG/100 ML 500 MG/100 ML BAG IVPB SCH ×3 (16:43→23:26)
[2020-02-08 17:02] LABS: Basophils % 0.2 %; Mean Corpuscular HGB Conc 33.3 g/dL (31.6-35.5); Red Cell Distribution Width 13.8 % (11.5-14.5)
[2020-02-08 17:03] LABS: Basophils # 0.1 K/mcL (0.0-0.2); Eosinophils % 0.4 %; Hematocrit 34.2 % (37.5-50.1); Hemoglobin 11.4 g/dL (12.9-16.9); Immature Granulocytes % 5.9 % (0-4); Lymphocytes # 0.4 K/mcL (0.6-4.6); Lymphocytes % 1.2 %; Mean Corpuscular Hemoglobin 29.4 pg (28.0-33.3); Mean Corpuscular Volume 88.1 fL (83.0-100.0); Mean Platelet Volume 10.4 fL (9.4-12.4); Monocytes # 1.4 K/mcL (0.0-1.3); Monocytes % 3.9 %; Platelet Count 198 K/mcL (140-400); Red Blood Count 3.88 M/mcL (4.19-5.50); Segmented Neutrophils % 88.4 %
[2020-02-08 17:04] LABS: Eosinophils # 0.2 K/mcL (0.0-0.6); Neutrophils # 32.4 K/mcL (1.6-8.9)
[2020-02-08 17:08] LABS: White Blood Count 36.6 K/mcL (4.3-11.1)
[2020-02-08] MEDS: 0.9 % Sodium Chloride 1,000 ML IVC SCH (17:18)
[2020-02-08 17:22] LABS: Albumin 3.8 g/dL (3.5-5.7); Albumin/Globulin Ratio 1.6 (1.1-2.2); Bilirubin,Total 4.4 mg/dL (0.3-1.0); Calcium 8.8 mg/dL (8.6-10.3); Globulin 2.4 g/dL (2.4-3.5); Potassium 4.4 mEq/L (3.5-5.1); Total Protein 6.2 g/dL (6.4-8.9)
[2020-02-08 17:27] LABS: Acanthocytes 1+ (Not Present); Dohle Bodies Present (Not Present); Toxic Granulation Present (Not Present)
[2020-02-08] MEDS: Ringers Solution, Lactated 1,000 ML IVC SCH ×4 (17:48→20:39)
[2020-02-08] MEDS ORDERED: Famotidine 20 MG TABLET PO SCH (18:00)
[2020-02-08 18:07] LABS: Bacteria,Urine Few per hpf (None-Few); Bilirubin,Urine Moderate (Negative); Blood,Urine Small (Negative); Clarity,Urine Turbid (Clear); Color,Urine Dark-Yellow (Yellow); Glucose,Urine (UA) Normal (Normal); Hyaline Casts,Urine Many per lpf (None Seen); Ketones,Urine Trace mg/dL (Negative); Leukocyte Esterase,Urine Negative (Negative); Mucus,Urine Few per lpf (None-Few); Nitrite,Urine Negative (Negative); Protein,Urine 70 mg/dL (Neg-Trace); RBC,Urine 15-30 per hpf (0-3); Renal Epithelial Cells,Urine Few per hpf (None-Few); Specific Gravity,Urine > 1.030 (1.010-1.025); Sperm,Urine Present (None Seen); Squamous Epithelial Cell,Urine Few per hpf (None-Few); Transitional Epi Cells,Urine Few per hpf (None-Few); WBC,Urine 30-50 per hpf (0-3)
[2020-02-08] MEDS ORDERED: Metoprolol XL (24 HR) Succ 50 MG TAB.ER.24H PO SCH (21:00)
[2020-02-09] MEDS: 0.9 % Sodium Chloride 1,000 ML IVC SCH (06:47)
[2020-02-09] MEDS: MetroNIDAZOLE 500 MG/100 ML 500 MG/100 ML BAG IVPB SCH (08:28)
[2020-02-09] MEDS: Cefepime HCl 2,000 MG in Water for inj. (sterile) 20 ML IVP SCH ×2 (08:28→17:41)
[2020-02-09 08:37] LABS: Red Cell Distribution Width 14.1 % (11.5-14.5)
[2020-02-09 08:39] LABS: Hematocrit 31.3 % (37.5-50.1); Hemoglobin 10.2 g/dL (12.9-16.9); Mean Corpuscular HGB Conc 32.6 g/dL (31.6-35.5); Mean Corpuscular Hemoglobin 28.9 pg (28.0-33.3); Mean Corpuscular Volume 88.7 fL (83.0-100.0); Mean Platelet Volume 10.4 fL (9.4-12.4); Platelet Count 172 K/mcL (140-400); Red Blood Count 3.53 M/mcL (4.19-5.50)
[2020-02-09 08:53] LABS: White Blood Count 32.9 K/mcL (4.3-11.1)
[2020-02-09 08:58] LABS: Albumin 3.4 g/dL (3.5-5.7); Albumin/Globulin Ratio 1.4 (1.1-2.2); Bilirubin,Direct 1.9 mg/dL (0.0-0.2); Bilirubin,Indirect 0.9 mg/dL (0.0-1.0); Bilirubin,Total 2.8 mg/dL (0.3-1.0); Globulin 2.4 g/dL (2.4-3.5); Total Protein 5.8 g/dL (6.4-8.9)
[2020-02-09 09:03] LABS: BUN/Creatinine Ratio 23 (6-26); Blood Urea Nitrogen 29 mg/dL (8-23); Calcium 8.7 mg/dL (8.6-10.3); Carbon Dioxide 25 mEq/L (23-29); Chloride 107 mEq/L (98-107); Glucose 140 mg/dL (70-105); Magnesium 1.9 mg/dL (1.6-2.6); Osmolality,Calculated 300 (280-300); Sodium 141 mEq/L (136-145); Troponin I 0.08 ng/mL (< 0.04); eGFR For African Americans > 60 (> 60); eGFR For Non-African Americans 54 (> 60)
[2020-02-09 09:12] LABS: Lymphocytes # 1.3 K/mcL (0.6-4.6); Monocytes # 1.3 K/mcL (0.0-1.3); Neutrophils # 30.3 K/mcL (1.6-8.9); Platelet Estimate Normal (Normal)
[2020-02-09] MEDS ORDERED: ARNUITY ELLIPTA IH PRN (10:00)
[2020-02-09] MEDS ORDERED: Dextrose Gel 15 GM/37.5 ML TUBE PO PRN ×2 (12:03)
[2020-02-09] MEDS ORDERED: D5% in Water 1,000 ML IVC PRN (12:03)
[2020-02-09] MEDS ORDERED: *HR* Dextrose 50 % in Water (Vial) 50 ML VIAL IVP PRN (12:03)
[2020-02-09] MEDS ORDERED: VILANTEROL TR IH PRN (12:12)
[2020-02-09] MEDS ORDERED: FLUTICASONE FUROATE 200 MCG IH PRN (12:12)
[2020-02-09] MEDS ORDERED: *HR* Heparin 5,000 UNIT/ML VIAL IVP PRN (12:12)
[2020-02-09] MEDS ORDERED: UMECLIDINIUM BRM IH PRN (12:12)
[2020-02-09] MEDS ORDERED: Acetaminophen 325 MG TABLET PO PRN (12:12)
[2020-02-09] MEDS ORDERED: Perflutren Lipid Microsphere 1.3 ML in 0.9 % Sodium Chloride 8.7 ML IVP PRN (13:19)
[2020-02-09] MEDS: Famotidine 20 MG TABLET PO SCH (17:41)
[2020-02-09] MEDS ORDERED: Insulin LISPRO 300 UNITS/3 ML VIAL SUBQ SCH (18:00)
[2020-02-09] MEDS: Heparin 25,000UNIT/250ML 1/2NS 25,000 UNIT/250 ML IV.SOLN IVC SCH (19:09)
[2020-02-09] MEDS: Metoprolol XL (24 HR) Succ 50 MG TAB.ER.24H PO SCH (19:38)
[2020-02-09] MEDS: Ringers Solution, Lactated 1,000 ML IVC SCH ×2 (19:41→19:42)
[2020-02-10 01:13] LABS: Hematocrit 32.3 % (37.5-50.1); Hemoglobin 10.8 g/dL (12.9-16.9); Mean Corpuscular HGB Conc 33.4 g/dL (31.6-35.5); Mean Corpuscular Hemoglobin 29.5 pg (28.0-33.3); Mean Corpuscular Volume 88.3 fL (83.0-100.0); Mean Platelet Volume 10.7 fL (9.4-12.4); Platelet Count 168 K/mcL (140-400); Red Blood Count 3.66 M/mcL (4.19-5.50); White Blood Count 28.9 K/mcL (4.3-11.1)
[2020-02-10] MEDS: *HR* Heparin 5,000 UNIT/ML VIAL IVP PRN (01:28)
[2020-02-10 01:32] LABS: Alanine Aminotransferase 127 Units/L (7-52); Albumin 3.3 g/dL (3.5-5.7); Albumin/Globulin Ratio 1.3 (1.1-2.2); Alkaline Phosphatase 269 Units/L (34-104); Aspartate Amino Transferase 65 Units/L (13-39); BUN/Creatinine Ratio 28 (6-26); Bilirubin,Total 1.2 mg/dL (0.3-1.0); Blood Urea Nitrogen 28 mg/dL (8-23); Calcium 8.7 mg/dL (8.6-10.3); Carbon Dioxide 26 mEq/L (23-29); Chloride 106 mEq/L (98-107); Globulin 2.6 g/dL (2.4-3.5); Glucose 134 mg/dL (70-105); Osmolality,Calculated 293 (280-300); Potassium 3.5 mEq/L (3.5-5.1); Sodium 138 mEq/L (136-145); Total Protein 5.9 g/dL (6.4-8.9); eGFR For African Americans > 60 (> 60); eGFR For Non-African Americans > 60 (> 60)
[2020-02-10 01:37] LABS: Lymphocytes # 1.2 K/mcL (0.6-4.6); Neutrophils # 27.7 K/mcL (1.6-8.9); Platelet Estimate Normal (Normal); Toxic Granulation Present (Not Present); Toxic Vacuolation Present (Not Present)
[2020-02-10] MEDS: Cefepime HCl 2,000 MG in Water for inj. (sterile) 20 ML IVP SCH ×2 (02:50→16:05)
[2020-02-10] MEDS: Metoprolol XL (24 HR) Succ 50 MG TAB.ER.24H PO SCH ×2 (08:11→20:03)
[2020-02-10] MEDS: Cyanocobalamin (B-12) 1,000 MCG TABLET PO SCH (08:11)
[2020-02-10] MEDS: Heparin 25,000UNIT/250ML 1/2NS 25,000 UNIT/250 ML IV.SOLN IVC SCH (08:12)
[2020-02-10] MEDS: lisinopriL 5 MG TABLET PO SCH (08:12)
[2020-02-10] MEDS ORDERED: Cyanocobalamin (B-12) 1,000 MCG TABLET PO SCH (09:00)
[2020-02-10] MEDS: Famotidine 20 MG TABLET PO SCH (16:05)
[2020-02-10] MEDS: cefTRIAXone 2,000 MG in Water for inj. (sterile) 20 ML IVP SCH (17:04)
[2020-02-10] MEDS ORDERED: *HR* Metoprolol 5 MG/5 ML VIAL IVP ONE (22:21)
[2020-02-10] MEDS: Budesonide/Formoterol 160/4.5 1 PUFF INH IH SCH (23:32)
[2020-02-11 01:13] LABS: Hemoglobin 12.2 g/dL (12.9-16.9); Mean Corpuscular Volume 87.9 fL (83.0-100.0); Mean Platelet Volume 11.1 fL (9.4-12.4); Platelet Count 180 K/mcL (140-400); Red Blood Count 4.21 M/mcL (4.19-5.50); White Blood Count 18.9 K/mcL (4.3-11.1)
[2020-02-11 01:30] LABS: BUN/Creatinine Ratio 29 (6-26); Blood Urea Nitrogen 24 mg/dL (8-23); Calcium 8.8 mg/dL (8.6-10.3); Carbon Dioxide 25 mEq/L (23-29); Chloride 106 mEq/L (98-107); Glucose 144 mg/dL (70-105); Osmolality,Calculated 293 (280-300); Potassium 3.8 mEq/L (3.5-5.1); Sodium 138 mEq/L (136-145); eGFR For African Americans > 60 (> 60); eGFR For Non-African Americans > 60 (> 60)
[2020-02-11] MEDS: *HR* Heparin 5,000 UNIT/ML VIAL IVP PRN (01:45)
[2020-02-11] MEDS: Heparin 25,000UNIT/250ML 1/2NS 25,000 UNIT/250 ML IV.SOLN IVC SCH (05:11)
[2020-02-11] MEDS: Metoprolol XL (24 HR) Succ 50 MG TAB.ER.24H PO SCH ×2 (09:02→20:48)
[2020-02-11] MEDS: lisinopriL 5 MG TABLET PO SCH (09:02)
[2020-02-11] MEDS: Cyanocobalamin (B-12) 1,000 MCG TABLET PO SCH (09:02)
[2020-02-11] MEDS ORDERED: Tiotropium 10 INH DOSE IH ONE (09:13)
[2020-02-11] MEDS: Apixaban 5 MG TABLET PO SCH ×2 (09:26→20:48)
[2020-02-11] MEDS: Budesonide/Formoterol 160/4.5 1 PUFF INH IH SCH ×2 (09:47→19:55)
[2020-02-11] MEDS: Tiotropium 10 INH DOSE IH SCH (09:47)
[2020-02-11] MEDS: cefTRIAXone 2,000 MG in Water for inj. (sterile) 20 ML IVP SCH (16:18)
[2020-02-11] MEDS: Famotidine 20 MG TABLET PO SCH (16:19)
[2020-02-11] MEDS: metroNIDAZOLE 500 MG TABLET PO SCH ×2 (16:19→20:48)
[2020-02-12 06:05] LABS: Basophils # 0.1 K/mcL (0.0-0.2); Basophils % 0.6 %; Eosinophils # 0.1 K/mcL (0.0-0.6); Eosinophils % 1.1 %; Hemoglobin 11.8 g/dL (12.9-16.9); Immature Granulocytes % 0.7 % (0-4); Lymphocytes # 1.2 K/mcL (0.6-4.6); Lymphocytes % 13.8 %; Mean Corpuscular HGB Conc 32.8 g/dL (31.6-35.5); Mean Corpuscular Hemoglobin 28.6 pg (28.0-33.3); Mean Corpuscular Volume 87.4 fL (83.0-100.0); Mean Platelet Volume 10.8 fL (9.4-12.4); Monocytes # 0.8 K/mcL (0.0-1.3); Monocytes % 8.9 %; Neutrophils # 6.6 K/mcL (1.6-8.9); Platelet Count 159 K/mcL (140-400); Red Blood Count 4.12 M/mcL (4.19-5.50); Red Cell Distribution Width 13.9 % (11.5-14.5); Segmented Neutrophils % 74.9 %
[2020-02-12 06:14] LABS: White Blood Count 8.8 K/mcL (4.3-11.1)
[2020-02-12 06:27] LABS: Alanine Aminotransferase 61 Units/L (7-52); Albumin 3.5 g/dL (3.5-5.7); Albumin/Globulin Ratio 1.3 (1.1-2.2); Alkaline Phosphatase 243 Units/L (34-104); Aspartate Amino Transferase 27 Units/L (13-39); BUN/Creatinine Ratio 26 (6-26); Bilirubin,Total 1.1 mg/dL (0.3-1.0); Blood Urea Nitrogen 19 mg/dL (8-23); Calcium 8.9 mg/dL (8.6-10.3); Carbon Dioxide 23 mEq/L (23-29); Chloride 105 mEq/L (98-107); Globulin 2.6 g/dL (2.4-3.5); Glucose 92 mg/dL (70-105); Osmolality,Calculated 286 (280-300); Potassium 3.6 mEq/L (3.5-5.1); Sodium 137 mEq/L (136-145); Total Protein 6.1 g/dL (6.4-8.9); eGFR For African Americans > 60 (> 60); eGFR For Non-African Americans > 60 (> 60)
[2020-02-12] MEDS: Budesonide/Formoterol 160/4.5 1 PUFF INH IH SCH ×2 (08:18→20:35)
[2020-02-12] MEDS: Tiotropium 10 INH DOSE IH SCH (08:18)
[2020-02-12] MEDS: Cyanocobalamin (B-12) 1,000 MCG TABLET PO SCH (09:06)
[2020-02-12] MEDS: metroNIDAZOLE 500 MG TABLET PO SCH ×3 (09:06→22:32)
[2020-02-12] MEDS: lisinopriL 5 MG TABLET PO SCH (09:06)
[2020-02-12] MEDS: Apixaban 5 MG TABLET PO SCH ×2 (09:06→22:32)
[2020-02-12] MEDS: Metoprolol XL (24 HR) Succ 50 MG TAB.ER.24H PO SCH ×2 (09:07→22:34)
[2020-02-12] MEDS: Famotidine 20 MG TABLET PO SCH (15:46)
[2020-02-13] MEDS ORDERED: *HR* Labetalol 20 MG/4 ML SYRINGE IVP PRN (04:55)
[2020-02-13 06:11] LABS: Basophils # 0.1 K/mcL (0.0-0.2); Basophils % 0.8 %; Eosinophils # 0.2 K/mcL (0.0-0.6); Eosinophils % 1.4 %; Hematocrit 38.4 % (37.5-50.1); Hemoglobin 12.4 g/dL (12.9-16.9); Immature Granulocytes % 1.7 % (0-4); Lymphocytes # 1.5 K/mcL (0.6-4.6); Lymphocytes % 14.2 %; Mean Corpuscular HGB Conc 32.3 g/dL (31.6-35.5); Mean Corpuscular Hemoglobin 28.6 pg (28.0-33.3); Mean Corpuscular Volume 88.5 fL (83.0-100.0); Mean Platelet Volume 11.1 fL (9.4-12.4); Monocytes % 9.3 %; Neutrophils # 7.6 K/mcL (1.6-8.9); Platelet Count 178 K/mcL (140-400); Red Blood Count 4.34 M/mcL (4.19-5.50); Red Cell Distribution Width 13.5 % (11.5-14.5); Segmented Neutrophils % 72.6 %; White Blood Count 10.5 K/mcL (4.3-11.1)
[2020-02-13 06:33] LABS: Alanine Aminotransferase 57 Units/L (7-52); Albumin 3.6 g/dL (3.5-5.7); Albumin/Globulin Ratio 1.2 (1.1-2.2); Alkaline Phosphatase 250 Units/L (34-104); Aspartate Amino Transferase 34 Units/L (13-39); BUN/Creatinine Ratio 25 (6-26); Bilirubin,Total 1.2 mg/dL (0.3-1.0); Blood Urea Nitrogen 18 mg/dL (8-23); Carbon Dioxide 24 mEq/L (23-29); Chloride 105 mEq/L (98-107); Globulin 2.9 g/dL (2.4-3.5); Glucose 104 mg/dL (70-105); Osmolality,Calculated 286 (280-300); Potassium 3.5 mEq/L (3.5-5.1); Sodium 137 mEq/L (136-145); Total Protein 6.5 g/dL (6.4-8.9); eGFR For African Americans > 60 (> 60); eGFR For Non-African Americans > 60 (> 60)
[2020-02-13] MEDS: Tiotropium 10 INH DOSE IH SCH (08:10)
[2020-02-13] MEDS: Budesonide/Formoterol 160/4.5 1 PUFF INH IH SCH ×2 (08:10→19:51)
[2020-02-13] MEDS: Metoprolol XL (24 HR) Succ 50 MG TAB.ER.24H PO SCH ×2 (09:01→19:56)
[2020-02-13] MEDS: Apixaban 5 MG TABLET PO SCH ×2 (09:02→20:02)
[2020-02-13] MEDS: metroNIDAZOLE 500 MG TABLET PO SCH ×3 (09:02→20:02)
[2020-02-13] MEDS: lisinopriL 5 MG TABLET PO SCH (09:02)
[2020-02-13] MEDS: Cyanocobalamin (B-12) 1,000 MCG TABLET PO SCH (09:02)
[2020-02-13] MEDS ORDERED: Potassium Chloride Elixir 20 MEQ/15 ML UDC PO ONE (13:20)
[2020-02-13] MEDS ORDERED: *HR* Metoprolol 5 MG/5 ML VIAL IVP ONE (13:26)
[2020-02-13] MEDS: Famotidine 20 MG TABLET PO SCH (17:06)
[2020-02-14] MEDS: lisinopriL 5 MG TABLET PO SCH (08:02)
[2020-02-14] MEDS: Metoprolol XL (24 HR) Succ 50 MG TAB.ER.24H PO SCH ×2 (08:02→21:35)
[2020-02-14 08:22] LABS: Alanine Aminotransferase 1870 Units/L (7-52); Aspartate Amino Transferase > 3000 Units/L (13-39)
[2020-02-14 08:23] LABS: Albumin 3.7 g/dL (3.5-5.7); Albumin/Globulin Ratio 1.4 (1.1-2.2); Alkaline Phosphatase 416 Units/L (34-104); BUN/Creatinine Ratio 14 (6-26); Bilirubin,Direct 0.4 mg/dL (0.0-0.2); Bilirubin,Indirect 0.8 mg/dL (0.0-1.0); Bilirubin,Total 1.2 mg/dL (0.3-1.0); Blood Urea Nitrogen 43 mg/dL (8-23); Calcium 8.9 mg/dL (8.6-10.3); Carbon Dioxide 20 mEq/L (23-29); Chloride 105 mEq/L (98-107); Globulin 2.7 g/dL (2.4-3.5); Glucose 164 mg/dL (70-105); Osmolality,Calculated 302 (280-300); Potassium 5.1 mEq/L (3.5-5.1); Sodium 139 mEq/L (136-145); Total Protein 6.4 g/dL (6.4-8.9); eGFR For African Americans 24 (> 60); eGFR For Non-African Americans 20 (> 60)
[2020-02-14] MEDS ORDERED: 0.9 % Sodium Chloride 1,000 ML IVC ONE (08:52)
[2020-02-14] MEDS: Apixaban 5 MG TABLET PO SCH (09:01)
[2020-02-14] MEDS: Cyanocobalamin (B-12) 1,000 MCG TABLET PO SCH (09:02)
[2020-02-14] MEDS: Tiotropium 10 INH DOSE IH SCH (09:59)
[2020-02-14] MEDS: Budesonide/Formoterol 160/4.5 1 PUFF INH IH SCH ×2 (09:59→20:09)
[2020-02-14] MEDS: Ringers Solution, Lactated 1,000 ML IVC SCH ×2 (11:57→21:34)
[2020-02-14] MEDS: MetroNIDAZOLE 500 MG/100 ML 500 MG/100 ML BAG IVPB SCH ×3 (11:59→23:57)
[2020-02-14 13:11] LABS: Basophils % 0.2 %; Hematocrit 23.5 % (37.5-50.1); Lymphocytes # 1.2 K/mcL (0.6-4.6); Lymphocytes % 7.1 %; Mean Corpuscular HGB Conc 32.8 g/dL (31.6-35.5); Mean Corpuscular Hemoglobin 28.4 pg (28.0-33.3); Mean Corpuscular Volume 86.7 fL (83.0-100.0); Mean Platelet Volume 11.6 fL (9.4-12.4); Monocytes # 1.7 K/mcL (0.0-1.3); Monocytes % 10.2 %; Platelet Count 159 K/mcL (140-400); Red Blood Count 2.71 M/mcL (4.19-5.50); Red Cell Distribution Width 14.1 % (11.5-14.5); Segmented Neutrophils % 77.5 %
[2020-02-14 13:13] LABS: Neutrophils # 12.9 K/mcL (1.6-8.9)
[2020-02-14 13:20] LABS: Hemoglobin 7.7 g/dL (12.9-16.9); White Blood Count 16.6 K/mcL (4.3-11.1)
[2020-02-14 14:59] LABS: Hematocrit 22.5 % (37.5-50.1); Hemoglobin 7.4 g/dL (12.9-16.9)
[2020-02-14 15:41] LABS: Alanine Aminotransferase 2875 Units/L (7-52); Albumin 3.3 g/dL (3.5-5.7); Albumin/Globulin Ratio 1.4 (1.1-2.2); Alkaline Phosphatase 556 Units/L (34-104); Aspartate Amino Transferase > 3000 Units/L (13-39); BUN/Creatinine Ratio 15 (6-26); Bilirubin,Direct 0.4 mg/dL (0.0-0.2); Bilirubin,Indirect 0.7 mg/dL (0.0-1.0); Bilirubin,Total 1.1 mg/dL (0.3-1.0); Blood Urea Nitrogen 52 mg/dL (8-23); Calcium 8.2 mg/dL (8.6-10.3); Carbon Dioxide 19 mEq/L (23-29); Chloride 108 mEq/L (98-107); Globulin 2.4 g/dL (2.4-3.5); Glucose 140 mg/dL (70-105); Osmolality,Calculated 306 (280-300); Potassium 4.9 mEq/L (3.5-5.1); Sodium 140 mEq/L (136-145); Total Protein 5.7 g/dL (6.4-8.9); eGFR For African Americans 21 (> 60); eGFR For Non-African Americans 17 (> 60)
[2020-02-14 16:01] LABS: Basophils % 0.2 %; Hematocrit 23.1 % (37.5-50.1); Hemoglobin 7.6 g/dL (12.9-16.9); Immature Granulocytes % 4.4 % (0-4); Lymphocytes # 1.1 K/mcL (0.6-4.6); Lymphocytes % 6.6 %; Mean Corpuscular HGB Conc 32.9 g/dL (31.6-35.5); Mean Corpuscular Hemoglobin 28.8 pg (28.0-33.3); Mean Corpuscular Volume 87.5 fL (83.0-100.0); Monocytes # 1.6 K/mcL (0.0-1.3); Monocytes % 9.6 %; Neutrophils # 13.3 K/mcL (1.6-8.9); Platelet Count 142 K/mcL (140-400); Red Blood Count 2.64 M/mcL (4.19-5.50); Red Cell Distribution Width 14.3 % (11.5-14.5); Segmented Neutrophils % 79.2 %; White Blood Count 16.7 K/mcL (4.3-11.1)
[2020-02-14] MEDS: Famotidine 20 MG TABLET PO SCH (16:05)
[2020-02-14 16:35] LABS: Alanine Aminotransferase 2884 Units/L (7-52); Albumin 3.3 g/dL (3.5-5.7); Albumin/Globulin Ratio 1.4 (1.1-2.2); Alkaline Phosphatase 559 Units/L (34-104); Aspartate Amino Transferase > 3000 Units/L (13-39); BUN/Creatinine Ratio 15 (6-26); Bilirubin,Total 1.1 mg/dL (0.3-1.0); Blood Urea Nitrogen 54 mg/dL (8-23); Calcium 8.2 mg/dL (8.6-10.3); Carbon Dioxide 21 mEq/L (23-29); Chloride 107 mEq/L (98-107); Globulin 2.4 g/dL (2.4-3.5); Glucose 132 mg/dL (70-105); Osmolality,Calculated 307 (280-300); Potassium 4.6 mEq/L (3.5-5.1); Sodium 140 mEq/L (136-145); Total Protein 5.7 g/dL (6.4-8.9); eGFR For African Americans 20 (> 60); eGFR For Non-African Americans 17 (> 60)
[2020-02-15] MEDS ORDERED: *HR* Metoprolol 5 MG/5 ML VIAL IVP ONE ×2 (01:54→08:43)
[2020-02-15 04:19] LABS: Basophils % 0.1 %; Hematocrit 21.9 % (37.5-50.1); Hemoglobin 7.2 g/dL (12.9-16.9); Immature Granulocytes % 1.4 % (0-4); Lymphocytes # 0.9 K/mcL (0.6-4.6); Lymphocytes % 4.5 %; Mean Corpuscular HGB Conc 32.9 g/dL (31.6-35.5); Mean Corpuscular Hemoglobin 28.8 pg (28.0-33.3); Mean Corpuscular Volume 87.6 fL (83.0-100.0); Mean Platelet Volume 11.3 fL (9.4-12.4); Monocytes # 1.4 K/mcL (0.0-1.3); Neutrophils # 17.2 K/mcL (1.6-8.9); Platelet Count 145 K/mcL (140-400); Red Cell Distribution Width 14.8 % (11.5-14.5); White Blood Count 19.7 K/mcL (4.3-11.1)
[2020-02-15 04:51] LABS: Albumin 3.2 g/dL (3.5-5.7); Albumin/Globulin Ratio 1.3 (1.1-2.2); Bilirubin,Direct 0.4 mg/dL (0.0-0.2); Bilirubin,Indirect 0.8 mg/dL (0.0-1.0); Bilirubin,Total 1.2 mg/dL (0.3-1.0); Globulin 2.4 g/dL (2.4-3.5); Potassium 4.8 mEq/L (3.5-5.1); Total Protein 5.6 g/dL (6.4-8.9)
[2020-02-15] MEDS: Metoprolol XL (24 HR) Succ 50 MG TAB.ER.24H PO SCH ×2 (06:17→19:40)
[2020-02-15] MEDS: Ringers Solution, Lactated 1,000 ML IVC SCH (09:32)
[2020-02-15] MEDS: MetroNIDAZOLE 500 MG/100 ML 500 MG/100 ML BAG IVPB SCH ×3 (09:34→23:58)
[2020-02-15] MEDS: Cyanocobalamin (B-12) 1,000 MCG TABLET PO SCH (09:37)
[2020-02-15 10:02] LABS: Uric Acid 12.8 mg/dL (2.3-7.6)
[2020-02-15] MEDS: Tiotropium 10 INH DOSE IH SCH (11:43)
[2020-02-15] MEDS: Budesonide/Formoterol 160/4.5 1 PUFF INH IH SCH ×2 (11:43→20:21)
[2020-02-15 13:18] LABS: Protein/Creatinine Ratio,Urine 1.47 mg/mg (0.00-0.20); Sodium, Urine 95.2 mEq/L
[2020-02-15 15:37] LABS: Amorphous Sediment,Urine Few per hpf (None-Few); Bilirubin,Urine Negative (Negative); Blood,Urine Large (Negative); Clarity,Urine Turbid (Clear); Color,Urine Yellow (Yellow); Glucose,Urine (UA) 50 mg/dL (Normal); Ketones,Urine Negative (Negative); Leukocyte Esterase,Urine Trace (Negative); Mucus,Urine Few per lpf (None-Few); Nitrite,Urine Negative (Negative); PH,Urine 5.5 pH Units (5.0-8.0); Protein,Urine 50 mg/dL (Neg-Trace); RBC,Urine TNTC per hpf (0-3); Specific Gravity,Urine 1.015 (1.010-1.025); Squamous Epithelial Cell,Urine Few per hpf (None-Few); Urobilinogen,Urine Normal (Normal); WBC,Urine 0-3 per hpf (0-3)
[2020-02-15] MEDS: Famotidine 20 MG TABLET PO SCH ×2 (16:39→16:49)
[2020-02-16] MEDS: Ringers Solution, Lactated 1,000 ML IVC SCH ×4 (02:53→20:53)
[2020-02-16 06:36] LABS: Basophils % 0.1 %; Hematocrit 21.5 % (37.5-50.1); Hemoglobin 7.1 g/dL (12.9-16.9); Immature Granulocytes % 2.4 % (0-4); Lymphocytes % 5.1 %; Mean Corpuscular Hemoglobin 29.1 pg (28.0-33.3); Mean Corpuscular Volume 88.1 fL (83.0-100.0); Mean Platelet Volume 10.8 fL (9.4-12.4); Monocytes # 1.3 K/mcL (0.0-1.3); Monocytes % 7.1 %; Neutrophils # 16.2 K/mcL (1.6-8.9); Nucleated Red Blood Cells 0.1 /100 WBC (0); Platelet Count 198 K/mcL (140-400); Red Blood Count 2.44 M/mcL (4.19-5.50); Red Cell Distribution Width 15.9 % (11.5-14.5); Segmented Neutrophils % 85.3 %
[2020-02-16] MEDS ORDERED: *HR* Metoprolol 5 MG/5 ML VIAL IVP ONE ×5 (06:41→17:35)
[2020-02-16 07:10] LABS: Albumin 3.3 g/dL (3.5-5.7); Albumin/Globulin Ratio 1.3 (1.1-2.2); Bilirubin,Direct 0.6 mg/dL (0.0-0.2); Bilirubin,Indirect 0.9 mg/dL (0.0-1.0); Bilirubin,Total 1.5 mg/dL (0.3-1.0); Calcium 8.5 mg/dL (8.6-10.3); Globulin 2.5 g/dL (2.4-3.5); Potassium 4.5 mEq/L (3.5-5.1); Total Protein 5.8 g/dL (6.4-8.9)
[2020-02-16] MEDS: DilTIAZem 50 MG/50 ML IV.SOLN IVC SCH ×3 (08:36→20:55)
[2020-02-16] MEDS: MetroNIDAZOLE 500 MG/100 ML 500 MG/100 ML BAG IVPB SCH ×3 (08:37→23:27)
[2020-02-16] MEDS: Metoprolol XL (24 HR) Succ 50 MG TAB.ER.24H PO SCH ×3 (08:38→20:50)
[2020-02-16] MEDS: Cyanocobalamin (B-12) 1,000 MCG TABLET PO SCH ×2 (08:38→09:00)
[2020-02-16] MEDS: Budesonide/Formoterol 160/4.5 1 PUFF INH IH SCH ×2 (10:19→21:58)
[2020-02-16] MEDS: Tiotropium 10 INH DOSE IH SCH (10:20)
[2020-02-16] MEDS: Cefepime HCl 1,000 MG in 0.9 % Sodium Chloride Mini Bag 100 ML IVPB SCH (11:09)
[2020-02-16] MEDS ORDERED: *HR* LORazepam 2 MG/ML VIAL IVP ONE (14:42)
[2020-02-16] MEDS ORDERED: *HR* LORazepam 2 MG/ML VIAL ONE (14:45)
[2020-02-16] MEDS: Famotidine 20 MG TABLET PO SCH (15:51)
[2020-02-17] MEDS: DilTIAZem 50 MG/50 ML IV.SOLN IVC SCH ×4 (02:03→17:15)
[2020-02-17 02:39] LABS: Basophils % 0.1 %; Eosinophils % 0.1 %; Hematocrit 22.9 % (37.5-50.1); Hemoglobin 7.4 g/dL (12.9-16.9); Immature Granulocytes % 1.7 % (0-4); Lymphocytes # 1.1 K/mcL (0.6-4.6); Lymphocytes % 5.8 %; Mean Corpuscular HGB Conc 32.3 g/dL (31.6-35.5); Mean Corpuscular Hemoglobin 29.2 pg (28.0-33.3); Mean Corpuscular Volume 90.5 fL (83.0-100.0); Mean Platelet Volume 10.6 fL (9.4-12.4); Monocytes # 1.3 K/mcL (0.0-1.3); Monocytes % 6.6 %; Neutrophils # 16.1 K/mcL (1.6-8.9); Nucleated Red Blood Cells 0.1 /100 WBC (0); Platelet Count 286 K/mcL (140-400); Red Blood Count 2.53 M/mcL (4.19-5.50); Red Cell Distribution Width 16.6 % (11.5-14.5); Segmented Neutrophils % 85.7 %; White Blood Count 18.8 K/mcL (4.3-11.1)
[2020-02-17 03:02] LABS: Calcium 8.1 mg/dL (8.6-10.3)
[2020-02-17 03:16] LABS: Albumin 3.3 g/dL (3.5-5.7); Albumin/Globulin Ratio 1.3 (1.1-2.2); Bilirubin,Direct 0.6 mg/dL (0.0-0.2); Bilirubin,Indirect 1.1 mg/dL (0.0-1.0); Bilirubin,Total 1.7 mg/dL (0.3-1.0); Globulin 2.5 g/dL (2.4-3.5); Total Protein 5.8 g/dL (6.4-8.9)
[2020-02-17] MEDS: Ringers Solution, Lactated 1,000 ML IVC SCH ×2 (07:16→08:01)
[2020-02-17] MEDS: Tiotropium 10 INH DOSE IH SCH (07:36)
[2020-02-17] MEDS: Budesonide/Formoterol 160/4.5 1 PUFF INH IH SCH ×2 (07:36→21:02)
[2020-02-17] MEDS: MetroNIDAZOLE 500 MG/100 ML 500 MG/100 ML BAG IVPB SCH ×3 (08:02→23:43)
[2020-02-17] MEDS: Metoprolol XL (24 HR) Succ 50 MG TAB.ER.24H PO SCH ×2 (08:03→19:52)
[2020-02-17] MEDS: Cyanocobalamin (B-12) 1,000 MCG TABLET PO SCH (08:03)
[2020-02-17] MEDS: Cefepime HCl 1,000 MG in 0.9 % Sodium Chloride Mini Bag 100 ML IVPB SCH (10:49)
[2020-02-17] MEDS: Famotidine 20 MG TABLET PO SCH (15:20)
[2020-02-17] MEDS ORDERED: Haloperidol Lactate 5 MG/ML VIAL IVP ONE (17:02)
[2020-02-17] MEDS: Levalbuterol Neb 0.63 MG/3 ML IH PRN (17:14)
[2020-02-17] MEDS ORDERED: *HR* LORazepam 2 MG/ML VIAL IVP ONE (18:22)
[2020-02-17] MEDS ORDERED: *HR* Metoprolol 5 MG/5 ML VIAL IVP ONE (18:22)
[2020-02-18] MEDS: DilTIAZem 50 MG/50 ML IV.SOLN IVC SCH ×3 (01:53→15:24)
[2020-02-18 02:41] LABS: Basophils % 0.3 %; Eosinophils % 0.1 %; Hematocrit 22.2 % (37.5-50.1); Hemoglobin 6.9 g/dL (12.9-16.9); Immature Granulocytes % 2.4 % (0-4); Lymphocytes # 1.3 K/mcL (0.6-4.6); Mean Corpuscular HGB Conc 31.1 g/dL (31.6-35.5); Mean Corpuscular Hemoglobin 28.8 pg (28.0-33.3); Mean Corpuscular Volume 92.5 fL (83.0-100.0); Monocytes # 1.5 K/mcL (0.0-1.3); Monocytes % 9.4 %; Neutrophils # 12.5 K/mcL (1.6-8.9); Nucleated Red Blood Cells 0.3 /100 WBC (0); Platelet Count 329 K/mcL (140-400); Red Cell Distribution Width 17.3 % (11.5-14.5); Segmented Neutrophils % 79.8 %; White Blood Count 15.7 K/mcL (4.3-11.1)
[2020-02-18 02:58] LABS: Calcium 8.1 mg/dL (8.6-10.3)
[2020-02-18 03:18] LABS: Albumin 2.9 g/dL (3.5-5.7); Albumin/Globulin Ratio 1.2 (1.1-2.2); Bilirubin,Direct 0.5 mg/dL (0.0-0.2); Bilirubin,Indirect 0.8 mg/dL (0.0-1.0); Bilirubin,Total 1.3 mg/dL (0.3-1.0); Globulin 2.5 g/dL (2.4-3.5); Total Protein 5.4 g/dL (6.4-8.9)
[2020-02-18] MEDS: Ringers Solution, Lactated 1,000 ML IVC SCH (03:36)
[2020-02-18] MEDS ORDERED: 0.9 % Sodium Chloride 250 ML ONE (05:02)
[2020-02-18] MEDS: MetroNIDAZOLE 500 MG/100 ML 500 MG/100 ML BAG IVPB SCH ×3 (07:32→23:17)
[2020-02-18] MEDS: Cyanocobalamin (B-12) 1,000 MCG TABLET PO SCH (07:39)
[2020-02-18] MEDS: Metoprolol XL (24 HR) Succ 50 MG TAB.ER.24H PO SCH ×2 (07:39→19:43)
[2020-02-18] MEDS: Budesonide/Formoterol 160/4.5 1 PUFF INH IH SCH ×2 (08:12→19:30)
[2020-02-18] MEDS: Tiotropium 10 INH DOSE IH SCH (08:12)
[2020-02-18] MEDS: Levalbuterol Neb 0.63 MG/3 ML IH PRN (10:05)
[2020-02-18] MEDS ORDERED: Cefepime HCl 2,000 MG in Water for inj. (sterile) 20 ML IVP SCH (11:00)
[2020-02-18] MEDS ORDERED: DilTIAZem CD (24hr) 120 MG CAP.ER.24H PO SCH (11:15)
[2020-02-18] MEDS: Famotidine 20 MG TABLET PO SCH (16:57)
[2020-02-18] MEDS: Apixaban 5 MG TABLET PO SCH (19:43)
[2020-02-19 02:52] LABS: Basophils # 0.1 K/mcL (0.0-0.2); Basophils % 0.4 %; Eosinophils % 0.1 %; Immature Granulocytes % 2.5 % (0-4); Lymphocytes # 1.2 K/mcL (0.6-4.6); Lymphocytes % 6.1 %; Mean Corpuscular Hemoglobin 28.8 pg (28.0-33.3); Mean Corpuscular Volume 92.9 fL (83.0-100.0); Mean Platelet Volume 10.5 fL (9.4-12.4); Monocytes # 1.9 K/mcL (0.0-1.3); Monocytes % 9.7 %; Neutrophils # 15.4 K/mcL (1.6-8.9); Nucleated Red Blood Cells 0.2 /100 WBC (0); Platelet Count 393 K/mcL (140-400); Red Blood Count 3.23 M/mcL (4.19-5.50); Red Cell Distribution Width 17.2 % (11.5-14.5); Segmented Neutrophils % 81.2 %
[2020-02-19 02:58] LABS: Hemoglobin 9.3 g/dL (12.9-16.9)
[2020-02-19 03:05] LABS: Calcium 8.3 mg/dL (8.6-10.3); Potassium 3.9 mEq/L (3.5-5.1)
[2020-02-19] MEDS: Tiotropium 10 INH DOSE IH SCH (07:28)
[2020-02-19] MEDS: Budesonide/Formoterol 160/4.5 1 PUFF INH IH SCH ×2 (07:28→20:04)
[2020-02-19] MEDS: Ringers Solution, Lactated 1,000 ML IVC SCH (07:49)
[2020-02-19] MEDS: MetroNIDAZOLE 500 MG/100 ML 500 MG/100 ML BAG IVPB SCH (07:50)
[2020-02-19] MEDS: Metoprolol XL (24 HR) Succ 50 MG TAB.ER.24H PO SCH (07:50)
[2020-02-19] MEDS: Apixaban 5 MG TABLET PO SCH (07:50)
[2020-02-19] MEDS: Cyanocobalamin (B-12) 1,000 MCG TABLET PO SCH (07:51)
[2020-02-19] MEDS: Cefepime HCl 2,000 MG in Water for inj. (sterile) 20 ML IVP SCH ×2 (12:53→22:37)
[2020-02-19] MEDS: D5% in Water 1,000 ML IVC SCH (15:28)
[2020-02-19] MEDS: Famotidine 20 MG TABLET PO SCH (17:08)
[2020-02-19] MEDS: Metoprolol 100 MG TABLET PO SCH (19:56)
[2020-02-20 03:25] LABS: Basophils # 0.1 K/mcL (0.0-0.2); Basophils % 0.3 %; Eosinophils # 0.1 K/mcL (0.0-0.6); Eosinophils % 0.2 %; Hematocrit 31.6 % (37.5-50.1); Hemoglobin 9.2 g/dL (12.9-16.9); Immature Granulocytes % 1.8 % (0-4); Lymphocytes # 1.4 K/mcL (0.6-4.6); Lymphocytes % 6.4 %; Mean Corpuscular HGB Conc 29.1 g/dL (31.6-35.5); Mean Corpuscular Hemoglobin 28.5 pg (28.0-33.3); Mean Corpuscular Volume 97.8 fL (83.0-100.0); Mean Platelet Volume 10.6 fL (9.4-12.4); Monocytes # 1.9 K/mcL (0.0-1.3); Neutrophils # 17.7 K/mcL (1.6-8.9); Platelet Count 396 K/mcL (140-400); Red Blood Count 3.23 M/mcL (4.19-5.50); Red Cell Distribution Width 17.6 % (11.5-14.5); Segmented Neutrophils % 82.3 %; White Blood Count 21.5 K/mcL (4.3-11.1)
[2020-02-20] MEDS: D5% in Water 1,000 ML IVC SCH (04:06)
[2020-02-20 04:13] LABS: Alanine Aminotransferase 286 Units/L (7-52); Albumin/Globulin Ratio 1.2 (1.1-2.2); Alkaline Phosphatase 220 Units/L (34-104); Aspartate Amino Transferase 39 Units/L (13-39); BUN/Creatinine Ratio 30 (6-26); Bilirubin,Direct 0.3 mg/dL (0.0-0.2); Bilirubin,Indirect 0.8 mg/dL (0.0-1.0); Bilirubin,Total 1.1 mg/dL (0.3-1.0); Blood Urea Nitrogen 37 mg/dL (8-23); Carbon Dioxide 18 mEq/L (23-29); Chloride 121 mEq/L (98-107); Globulin 2.6 g/dL (2.4-3.5); Glucose 146 mg/dL (70-105); Magnesium 1.5 mg/dL (1.6-2.6); Osmolality,Calculated 321 (280-300); Potassium 3.9 mEq/L (3.5-5.1); Sodium 150 mEq/L (136-145); Total Protein 5.6 g/dL (6.4-8.9); eGFR For African Americans > 60 (> 60); eGFR For Non-African Americans 56 (> 60)
[2020-02-20] MEDS: Metoprolol 100 MG TABLET PO SCH ×2 (07:43→20:47)
[2020-02-20] MEDS: Cyanocobalamin (B-12) 1,000 MCG TABLET PO SCH (07:43)
[2020-02-20] MEDS: Tiotropium 10 INH DOSE IH SCH (10:01)
[2020-02-20] MEDS: Budesonide/Formoterol 160/4.5 1 PUFF INH IH SCH ×2 (10:02→20:07)
[2020-02-20] MEDS: cefTRIAXone 2,000 MG in Water for inj. (sterile) 20 ML IVP SCH (10:57)
[2020-02-20] MEDS: Famotidine 20 MG TABLET PO SCH (17:53)
[2020-02-21 03:31] LABS: Basophils # 0.1 K/mcL (0.0-0.2); Basophils % 0.3 %; Eosinophils # 0.2 K/mcL (0.0-0.6); Eosinophils % 0.8 %; Hemoglobin 9.3 g/dL (12.9-16.9); Immature Granulocytes % 1.3 % (0-4); Lymphocytes # 1.5 K/mcL (0.6-4.6); Lymphocytes % 8.4 %; Mean Corpuscular Hemoglobin 28.9 pg (28.0-33.3); Mean Corpuscular Volume 93.2 fL (83.0-100.0); Mean Platelet Volume 10.4 fL (9.4-12.4); Monocytes # 1.5 K/mcL (0.0-1.3); Neutrophils # 14.8 K/mcL (1.6-8.9); Platelet Count 445 K/mcL (140-400); Red Blood Count 3.22 M/mcL (4.19-5.50); Red Cell Distribution Width 17.4 % (11.5-14.5); Segmented Neutrophils % 81.2 %; White Blood Count 18.3 K/mcL (4.3-11.1)
[2020-02-21 03:44] LABS: BUN/Creatinine Ratio 28 (6-26); Blood Urea Nitrogen 33 mg/dL (8-23); Calcium 8.4 mg/dL (8.6-10.3); Carbon Dioxide 24 mEq/L (23-29); Chloride 116 mEq/L (98-107); Glucose 115 mg/dL (70-105); Magnesium 1.7 mg/dL (1.6-2.6); Osmolality,Calculated 314 (280-300); Potassium 3.3 mEq/L (3.5-5.1); Sodium 148 mEq/L (136-145); eGFR For African Americans > 60 (> 60); eGFR For Non-African Americans 60 (> 60)
[2020-02-21] MEDS ORDERED: Potassium Chloride 40 MEQ, Lidocaine 1% 2 ML in 0.9 % Sodium Chloride 500 ML IVPB ONE (07:11)
[2020-02-21] MEDS: DilTIAZem 50 MG/50 ML IV.SOLN IVC SCH (07:16)
[2020-02-21] MEDS ORDERED: D5% in Water 1,000 ML IVC SCH (07:45)
[2020-02-21] MEDS: Tiotropium 10 INH DOSE IH SCH (07:51)
[2020-02-21] MEDS: Budesonide/Formoterol 160/4.5 1 PUFF INH IH SCH (07:51)
[2020-02-21] MEDS: Metoprolol 100 MG TABLET PO SCH (07:55)
[2020-02-21] MEDS: Cyanocobalamin (B-12) 1,000 MCG TABLET PO SCH (07:55)
[2020-02-21] MEDS ORDERED: Aspirin 81 MG TAB.CHEW PO SCH (09:00)
[2020-02-21] MEDS: cefTRIAXone 2,000 MG in Water for inj. (sterile) 20 ML IVP SCH (10:51)
[2020-02-21 15:42] VITALS: BP 146/85
[2020-02-21 17:14] LABS: Adenovirus Not Detected (Not Detect); Coronavirus 229E Not Detected (Not Detect); Coronavirus HKU1 Not Detected (Not Detect); Coronavirus NL63 Not Detected (Not Detect); Coronavirus OC43 Not Detected (Not Detect)
[2020-02-21 17:15] LABS: Bordetella Pertussis Not Detected (Not Detect); Chlamydophila pneumoniae Not Detected (Not Detect); Human Metapneumovirus Not Detected (Not Detect); Human Rhinovirus/Enterovirus Not Detected (Not Detect); Influenza A Subtype 2009 H1 Not Detected (Not Detect); Influenza B Not Detected (Not Detect); Mycoplasma pneumoniae Not Detected (Not Detect); Parainfluenza Virus 1 Not Detected (Not Detect); Parainfluenza Virus 2 Not Detected (Not Detect); Parainfluenza Virus 3 Not Detected (Not Detect); Parainfluenza Virus 4 Not Detected (Not Detect); Respiratory Syncytial Virus Not Detected (Not Detect); SARS-CoV-2 Not Detected (Not Detect)
== END 2020-02-21 18:15 | DRG 871 ==
LOC: 3BNU 21:59 → EMEROOARM 21:59 → 3BNU 02-08 02:45 → 2NNU 02-08 14:03 → SUATTDRO 02-08 14:30 → ICNU 02-08 15:36 → 3BNU 02-09 17:02 → 2ANU 02-15 11:17
PROVIDERS: ADMIT Student in an Organized Health Care Education/Training Program; ATTEND Family Medicine

== ENCOUNTER 2020-04-09 14:12 | Observation (INO) ==
[2020-04-09] MEDS ORDERED: Isovue-370 500 ML BOTTLE IVP ONE (14:28)
[2020-04-09 14:51] LABS: Hematocrit 32.1 % (37.5-50.1); Hemoglobin 10.1 g/dL (12.9-16.9); Mean Corpuscular HGB Conc 31.5 g/dL (31.6-35.5); Mean Corpuscular Volume 88.9 fL (83.0-100.0); Platelet Count 195 K/mcL (140-400); Red Blood Count 3.61 M/mcL (4.19-5.50); Red Cell Distribution Width 14.9 % (11.5-14.5); White Blood Count 5.6 K/mcL (4.3-11.1)
[2020-04-09 15:09] LABS: INR 1.9; Prothrombin Time 21.4 Seconds (9.4-12.1)
[2020-04-09 15:11] LABS: BUN/Creatinine Ratio 19 (6-26); Blood Urea Nitrogen 16 mg/dL (8-23); Calcium 8.1 mg/dL (8.6-10.3); Carbon Dioxide 23 mEq/L (23-29); Chloride 107 mEq/L (98-107); Glucose 118 mg/dL (70-105); Osmolality,Calculated 286 (280-300); Potassium 3.7 mEq/L (3.5-5.1); Sodium 137 mEq/L (136-145); Troponin I 0.03 ng/mL (< 0.04); eGFR For African Americans > 60 (> 60); eGFR For Non-African Americans > 60 (> 60)
[2020-04-09 15:12] LABS: Activated Partial Thrombo Time 30.7 Seconds (26.0-36.0)
[2020-04-09 16:46] LABS: Alanine Aminotransferase 12 Units/L (7-52); Albumin 2.9 g/dL (3.5-5.7); Alkaline Phosphatase 140 Units/L (34-104); Aspartate Amino Transferase 24 Units/L (13-39); Bilirubin,Direct 0.2 mg/dL (0.0-0.2); Bilirubin,Indirect 0.5 mg/dL (0.0-1.0); Bilirubin,Total 0.7 mg/dL (0.3-1.0); Globulin 2.9 g/dL (2.4-3.5); Total Protein 5.8 g/dL (6.4-8.9)
[2020-04-09] MEDS ORDERED: Acetaminophen 325 MG TABLET PO PRN (18:10)
[2020-04-09] MEDS ORDERED: Ondansetron 4 MG/2 ML VIAL IVP PRN (18:10)
[2020-04-09 18:42] LABS: Estimated Average Glucose 105 mg/dl; Hemoglobin A1C 5.3 %
[2020-04-09] MEDS: Budesonide/Formoterol 160/4.5 1 PUFF INH IH SCH (20:38)
[2020-04-09] MEDS ORDERED: Apixaban 5 MG TABLET PO SCH (21:00)
[2020-04-09] MEDS ORDERED: Metoprolol 100 MG TABLET PO SCH (21:00)
[2020-04-10] MEDS: Budesonide/Formoterol 160/4.5 1 PUFF INH IH SCH (07:35)
[2020-04-10] MEDS ORDERED: Loratadine 10 MG TABLET PO SCH (09:00)
[2020-04-10] MEDS ORDERED: Aspirin 81 MG TAB.CHEW PO SCH (09:00)
[2020-04-10 11:26] VITALS: BP 110/60
== END 2020-04-10 15:39 ==
LOC: EMEROOARM 14:12 → 3BNU 14:12 → SUATTDRO 16:20 → 3BNU 17:05
PROVIDERS: ADMIT Internal Medicine; ATTEND Internal Medicine